=== PATIENT | female | born 1945 | race Caucasian/White ===

== ENCOUNTER → 2016-10-23 | Outpatient (CLI) | payer OTHER ==
[~2016-10-23] MED LIST: MINO100C22 PO; NAPR1TAB9 PO; OMEP20TA PO; TNR50 PO; TRIATAB3 PO; ULT50X PO
[2016-10-23 16:16] LABS: ALT/SGPT 19 U/L (12-78); AST/SGOT 16 U/L (15-37); BLOOD UREA NITROGEN 15 mg/dl (7-18); BUN/CREATININE RATIO 28.8 (10-20); CALCIUM 9.7 mg/dl (8.5-10.1); CARBON DIOXIDE 26 mmol/L (21-32); CHLORIDE 104 mmol/L (98-107); CHOLESTEROL 172 mg/dl (0-200); CREATININE 0.51 mg/dl (0.60-1.20); GLUCOSE 101 mg/dl (70-99); POTASSIUM 4.1 mmol/L (3.5-5.1); SODIUM 138 mmol/L (136-145); TRIGLYCERIDES 125 mg/dl (0-150); VERY LOW DENSITY LIPOPROT CALC 25 mg/dl
[2016-10-23 16:27] LABS: ALB/GLOB RATIO 1.1 (0.9-2); ALKALINE PHOSPHATASE 91 U/L (45-117); HDL CHOLESTEROL 58 mg/dl
[2016-10-23 17:55] LABS: HEMATOCRIT 37.2 % (37-47); MEAN CORPUSCULAR HEMOGLOBIN 29.2 pg (25-34); MEAN CORPUSCULAR HGB CONC 32.8 g/dl (32-36); MEAN PLATELET VOLUME 10.3 fL (7.4-10.4); PLATELET COUNT 245 K/uL (130-400); RED BLOOD COUNT 4.18 M/uL (4.2-5.4); WHITE BLOOD COUNT 6.01 K/uL (4.8-10.8)
[2016-10-23 17:57] LABS: BASO % 0.8 %; BASO ABS # 0.05 K/uL (0-0.2); COMPLETE YES; EOS % 2.2 %; IG% 0.2 %; LYMPH % 16.5 %; LYMPH ABS # 0.99 K/uL (1.2-3.4); MONO % 7.3 %
== END | disposition home or self-care (01) ==
LOC: C.LABSPEC 14:49
PROVIDERS: ATTEND Internal Medicine
DX: I10 Essential (primary) hypertension (principal); E78.5 Hyperlipidemia, unspecified; R60.9 Edema, unspecified

== ENCOUNTER → 2017-03-06 | Outpatient (CLI) | payer OTHER ==
--- NOTE | 2017-03-08 08:12 | MAMMOGRAPHY REPORT ---
BILATERAL DIGITAL SCREENING MAMMOGRAM WITH CAD: 03/06/2017 CLINICAL HISTORY: Routine screening. Patient has no complaints. TECHNIQUE: Bilateral CC and MLO views were obtained. Current study was also evaluated with a Compute r Aided Detection (CAD) system. COMPARISON: Comparison is made to exams dated: 02/24/2015 mammogram, 11/17/2013 mammogram, 10/20/2012 ma mmogram, 05/11/2011 mammogram - [facility], 02/06/2008, and 01/10/2007. BREAST COMPOSITION: There are scattered areas of fibroglandular density in both breasts. FINDINGS: The MLO views, particularly the right MLO view, are suboptimal due to inability of the rizwan ent to adequately position for the exam given frozen shoulders. Within this limitation, there are sc attered benign rim calcifications and stable groupings of microcalcifications scattered in both breas ts. Stable asymmetry in the upper outer quadrant of the left breast. Evidence of prior bilateral br east surgery. No new suspicious mass, architectural distortion or cluster of microcalcifications is seen. IMPRESSION: ACR BI-RADS CATEGORY 1: NEGATIVE There is no mammographic evidence of malignancy, within the limitations of the exam. A 1 year screeni ng mammogram is recommended. The patient will receive written notification of the results. Approximately 10% of breast cancers are not detected with mammography. A negative mammographic report should not delay biopsy if a clinically suggestive mass is present. Marcie Cruz M.D. ay/:03/06/2017 12:30:00 [employer]: Cathy ANDUJAR(Adelaide)(Ashish), [facility] letter sent: Normal 1/2 BI-RADS Code: ACR BI-RADS Category 1: Negative
== END | disposition home or self-care (01) ==
LOC: C.MAMM 09:34
PROVIDERS: ATTEND Obstetrics & Gynecology
DX: Z12.31 Encounter for screening mammogram for malignant neoplasm of breast (principal)

== ENCOUNTER 2019-08-31 13:00 | Inpatient (IN) ==
[2019-08-31] MEDS ORDERED: OXYCODONE HCL IR 5 MG TAB (IMMEDIATE RELEASE) PO STA (13:19)
--- NOTE | 2019-08-31 13:20 | Emergency Department Note ---
Impression & Plan Bilateral femoral fractures, Hypertension, Paraplegia, unspecified ED Provider Note NAME: JANN COSME AGE: 74 SEX: F : 1945 ARRIVES VIA: Ambulance INFORMANT: Patient ED PROVIDER(S): Td Moore DO CHIEF COMPLAINT: Bilateral knee pain HPI: Patient is a 74-year-old female who presents the ER as she was coming on a [employer]. She fell out of her wheelchair and fell forward onto her knees. She did not hit her head or neck. She denies any loss consciousness. She complains of bilateral knee pain. She notes that she normally does not bear any weight with her legs. She notes the pain is currently 6 out of 10. She has no pain in the lower leg or upper femur but notes that it is all around both of her knees. Denies any chest pain shortness of breath nausea vomiting or diarrhea. 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 She notes that she does have sensation in her belly and lower extremities. ROS: See above HPI for pertinent positives & negatives. A total of 10 systems reviewed and were otherwise negative. PAST MEDICAL HISTORY:See Below PAST SURGICAL HISTORY:See Below FAMILY HISTORY:See Below SOCIAL HISTORY:See Below HOME MEDICATIONS:See Below ALLERGIES:See Below VITALS:See Below PHYSICAL EXAMINATION: GENERAL: Sitting up in bed, alert, well appearing, well nourished, no distress, non-toxic EYE EXAM: normal conjunctiva. OROPHARYNX: no exudate, no erythema, lips, buccal mucosa, and tongue normal and mucous membranes are moist NECK: supple, no nuchal rigidity, no adenopathy, non-tender CHEST: Stable to compression anteriorly and posteriorly LUNGS: Clear to auscultation. Normal chest wall mechanics HEART: no murmurs, S1 normal and S2 normal ABDOMEN: abdomen soft, non-tender, normo-active bowel sounds, no masses, no rebound or guarding. BACK: Back is symmetrical on inspection and there is no deformity, no midline tenderness, no CVA tenderness. PELVIS: Stable to compression anteriorly and posteriorly SKIN: no rashes and no bruising UPPER EXTREMITIES: Moderate pain on bilateral knees upon palpation and with minimal flexion extension. No pain within the mid to distal tib-fib or ankle. No pain on proximal to mid femurs bilaterally. LOWER EXTREMITIES: No pitting edema. NEURO EXAM: Normal sensorium, cranial nerves II-XII grossly intact, normal speech, no gross weakness of arms MEDICAL DECISION MAKING: Patient is a 74-year-old female who fell out of her scooter as she uses this because she is a paraplegic. This occurred at [facility]. She fell onto her bilateral knees. X-rays were obtained and showed bilateral distal femur fractures. Skin was intact. Patient was initially given oral OxyIR but after the bilateral fractures were seen blood work was obtained. With the IV she was given IV morphine x2. Labs show a mild leukocytosis of 10,000. No significant anemia. BMP with LFTs bilirubin lipase was unremarkable. Patient was given pain medications and discussed with orthopedics as well as the hospitalist for admission for bilateral distal femur fractures. No other complaints. Triage Nursing notes reviewed. Prior medical records reviewed Vital Signs: reviewed and remarkable for hypertension Differential diagnosis: Differential diagnoses include major intracranial, cervical, spinal, thoracic, abdominal, pelvic and neurologic injury. Fracture, contusion, sprain, strain, laceration, abrasions included as well. ER treatment provided: See below Diagnostics interpreted by me: ECG: none Cardiac Monitoring: An order was placed for continuous cardiac monitoring. The monitor shows a rate of 75 with sinus rhythm. Laboratory studies: As stated above and show below. Imaging studies: X-rays of the bilateral of the bilateral knees show bilateral femur fractures Consultation(s): Discussed with Dr. Michelle for admission as well as Dr. Filiberto Hanna from [facility] orthopedics. ED COURSE: Procedures: None Critical Care: None Past Med/Surg History Medical History (Updated 08/31/19 @ 17:18 by Td Moore DO) Carpal tunnel syndrome Surgical History (Updated 08/31/19 @ 16:18 by Perfecto Larios MD) H/O bilateral breast reduction surgery Hx of cholecystectomy Family History (Updated 08/31/19 @ 16:19 by Perfecto Larios MD) Mother Factor V Leiden Social History Preferred Language: Gabonese Communication Ability: Effective [employer] Required: No Beliefs That Will Affect Care: None Current Living Situation: Alone Other Information That Helps Us Care for You: No Feels Safe at Home: Yes Safety Concerns: Feels Safe At This Time Smoking Status: Never smoker Do You Dip or Chew Tobacco: No ; Second Hand Exposure: No ; Tobacco Cessation Education Requested by Patient: No Hx Alcohol Use: Yes Hx Substance Use: No Allergies Allergies Allergy/AdvReac Type Severity Reaction Status Date / Time latex Allergy Mild Rash Verified 08/31/19 16:07 No Known Drug Allergies Allergy Unknown NKDA Verified 03/15/15 11:05 Home Meds Home Medications Medication Instructions Recorded Confirmed atenolol 50 mg PO DAILY 08/31/19 08/31/19 minocycline 100 mg PO DAILY 08/31/19 08/31/19 tramadol 50 mg PO DAILY 08/31/19 08/31/19 Results & Data (ED) Vital Signs Vital Signs - 24 hr 08/31/19 13:08 08/31/19 13:12 08/31/19 13:19 Temperature 37.2 C Temperature Source Oral Pulse Rate 80 80 76 Pulse Rate [Apical] 80 Pulse Rate from SpO2 Sensor Respiratory Rate 24 20 22 Respiratory Effort / Characteristics Non-Labored Spontaneous Respiratory Depth Normal Respiratory Pattern Regular Blood Pressure 199/98 H 199/98 H Blood Pressure [Right Radial Artery] 199/98 H Blood Pressure Mean 121 131 Blood Pressure Mean [Right Radial Artery] 131 Pulse Oximetry 98 Oxygen Delivery Method Room Air Sepsis Recent Fever Within 48 Hours No Sepsis New/Unexplained Change in Mental Status No Sepsis Action Taken by Nursing No Action Required 08/31/19 13:30 08/31/19 13:31 08/31/19 14:00 Temperature Temperature Source Pulse Rate 79 71 75 Pulse Rate [Apical] Pulse Rate from SpO2 Sensor 80 72 Respiratory Rate 19 18 16 Respiratory Effort / Characteristics Respiratory Depth Respiratory Pattern Blood Pressure 198/130 H Blood Pressure [Right Radial Artery] Blood Pressure Mean 157 Blood Pressure Mean [Right Radial Artery] Pulse Oximetry 100 99 Oxygen Delivery Method Sepsis Recent Fever Within 48 Hours Sepsis New/Unexplained Change in Mental Status Sepsis Action Taken by Nursing 08/31/19 14:01 08/31/19 14:30 08/31/19 15:00 Temperature Temperature Source Pulse Rate 82 74 78 Pulse Rate [Apical] Pulse Rate from SpO2 Sensor 74 74 Respiratory Rate 16 26 H 25 H Respiratory Effort / Characteristics Respiratory Depth Respiratory Pattern Blood Pressure 176/78 H Blood Pressure [Right Radial Artery] Blood Pressure Mean 117 Blood Pressure Mean [Right Radial Artery] Pulse Oximetry 99 90 Oxygen Delivery Method Sepsis Recent Fever Within 48 Hours Sepsis New/Unexplained Change in Mental Status Sepsis Action Taken by Nursing 08/31/19 15:02 08/31/19 15:13 08/31/19 15:30 Temperature Temperature Source Pulse Rate 80 76 89 Pulse Rate [Apical] 77 Pulse Rate from SpO2 Sensor 89 Respiratory Rate 20 22 29 H Respiratory Effort / Characteristics Non-Labored Spontaneous Respiratory Depth Normal Respiratory Pattern Regular Blood Pressure 172/80 H Blood Pressure [Right Radial Artery] 172/80 H Blood Pressure Mean 106 Blood Pressure Mean [Right Radial Artery] 110 Pulse Oximetry 99 89 L Oxygen Delivery Method Room Air Sepsis Recent Fever Within 48 Hours Sepsis New/Unexplained Change in Mental Status Sepsis Action Taken by Nursing 08/31/19 16:00 08/31/19 16:02 08/31/19 16:30 Temperature Temperature Source Pulse Rate 80 75 79 Pulse Rate [Apical] Pulse Rate from SpO2 Sensor 80 78 84 Respiratory Rate 28 H 19 21 Respiratory Effort / Characteristics Respiratory Depth Respiratory Pattern Blood Pressure 168/57 H 148/78 H Blood Pressure [Right Radial Artery] Blood Pressure Mean 105 98 Blood Pressure Mean [Right Radial Artery] Pulse Oximetry 75 L 97 90 Oxygen Delivery Method Sepsis Recent Fever Within 48 Hours Sepsis New/Unexplained Change in Mental Status Sepsis Action Taken by Nursing 08/31/19 16:31 Temperature Temperature Source Pulse Rate 78 Pulse Rate [Apical] Pulse Rate from SpO2 Sensor 78 Respiratory Rate 21 Respiratory Effort / Characteristics Respiratory Depth Respiratory Pattern Blood Pressure Blood Pressure [Right Radial Artery] Blood Pressure Mean Blood Pressure Mean [Right Radial Artery] Pulse Oximetry 100 Oxygen Delivery Method Sepsis Recent Fever Within 48 Hours Sepsis New/Unexplained Change in Mental Status Sepsis Action Taken by Nursing Laboratory Data Result diagrams: 08/31/19 14:50 08/31/19 15:56 Lab Results 08/31/19 08/31/19 08/31/19 Range/Units 14:50 14:50 15:56 WBC 10.91 H (4.8-10.8) K/uL RBC 4.23 (4.2-5.4) M/uL Hgb 11.6 L (12.0-16.0) g/dL Hct 36.2 L (37-47) % MCV 85.6 (80-100) fL MCH 27.4 (25-34) pg MCHC 32.0 (32-36) g/dL RDW Std Deviation 41.3 (36.4-46.3) fL RDW Coeff of Niki 13.2 (11.5-14.5) % Plt Count 267 (130-400) K/uL MPV 9.9 (7.4-10.4) fL Immature Gran % (Auto) 0.3 % Neut % (Auto) 88.0 % Lymph % (Auto) 5.9 % [place] % (Auto) 5.0 % Eos % (Auto) 0.5 % Baso % (Auto) 0.3 % Immature Gran # (Auto) 0.03 H (0.00-0.02) K/uL Neut # (Auto) 9.60 H (1.4-6.5) K/uL Lymph # (Auto) 0.64 L (1.2-3.4) K/uL [place] # (Auto) 0.55 (0.11-0.59) K/uL Eos # (Auto) 0.06 (0-0.5) K/uL Baso # (Auto) 0.03 (0-0.2) K/uL Sodium 137 (136-145) mmol/L Potassium 4.3 (3.5-5.1) mmol/L Chloride 102 (98-107) mmol/L Carbon Dioxide 25 (21-32) mmol/L Anion Gap 10.0 (3-11) BUN 16 (7-18) mg/dl Creatinine 0.65 (0.6-1.2) mg/dl Est Cr Clr Drug Dosing 73.5 ml/min Est GFR ( Amer) 102.8 Est GFR (Non-Af Amer) 88.7 BUN/Creatinine Ratio 25.1 H (10-20) Glucose 116 H (70-99) mg/dl Calcium 9.5 (8.5-10.1) mg/dl Total Bilirubin 0.5 (0.2-1) mg/dl AST 21 (15-37) U/L ALT 18 (12-78) U/L Alkaline Phosphatase 131 H (45-117) U/L Total Protein 8.2 (6.4-8.2) gm/dl Albumin 3.9 (3.4-5.0) gm/dl Globulin 4.3 H (2.5-4.0) gm/dl Albumin/Globulin Ratio 0.9 (0.9-2) Lipase 82 (73-393) U/L Administered Medications Discontinued Medications Morphine Sulfate (Morphine Sulfate) 4 mg IV NOW STA Stop: 08/31/19 14:29 Last Admin: 08/31/19 15:15 Dose: 4 mg Documented by: [id number] Morphine Sulfate (Morphine Sulfate) 4 mg IV NOW STA Stop: 08/31/19 16:54 Last Admin: 08/31/19 16:58 Dose: 4 mg Documented by: [id number] Ondansetron HCl (Zofran) 4 mg IV NOW STA Stop: 08/31/19 14:29 Last Admin: 08/31/19 15:14 Dose: 4 mg Documented by: [id number] Oxycodone HCl (Roxicodone Immediate Rel) 5 mg PO NOW STA Stop: 08/31/19 13:20 Last Admin: 08/31/19 13:29 Dose: 5 mg Documented by: [id number] Discharge Plan Visit Data Chief Complaint: Fall ED Provider: Td Moore Discharge Problem: Bilateral femoral fractures, Hypertension, Paraplegia, unspecified Forms Stand Alone Forms: [facility] Prescriptions Prescriptions: No Action minocycline 100 mg capsule 100 mg PO DAILY RF: 0 tramadol 50 mg tablet 50 mg PO DAILY RF: 0 atenolol 50 mg tablet 50 mg PO DAILY RF: 0 Discharge Problem: Bilateral femoral fractures Qualifiers: Encounter type: initial encounter Fracture type: closed Qualified Code(s): S72.91XA - Unspecified fracture of right femur, initial encounter for closed fra cture Hypertension Qualifiers: Hypertension type: unspecified Qualified Code(s): I10 - Essential (primary) hypertension
--- NOTE | 2019-08-31 13:45 | XRay Report ---
XR knee RT 1 or 2V routine CLINICAL HISTORY: Bilateral knee pain. COMPARISON: None FINDINGS: Note is made of an acute impacted mildly displaced fracture through the distal metadiaphys is and metaphysis of the right femur. Fracture may extend to the intercondylar portion of the femur. No proximal right tibial or fibular fracture is noted. Right knee joint effusion is noted. There is s oft tissue swelling of the right knee. IMPRESSION: 1. Acute impacted mildly displaced fracture of the distal metadiaphysis and metaphysis of the right f emur which may extend to the intercondylar portion of the femur. 2. Associated right knee joint effusion. 3. Right knee soft tissue swelling. ACT 112: Negative or not required by law. Electronically signed by: Bello Pace M.D. 08/31/2019 1:44 PM
--- NOTE | 2019-08-31 13:46 | XRay Report ---
XR knee LT 1 or 2V routine CLINICAL HISTORY: Left knee pain. COMPARISON STUDY: None. FINDINGS: The bones are osteopenic. There is diffuse soft tissue swelling throughout the knee. There is no associated moderate knee effusion. Impacted fracture at the distal metaphysis of the right femu r which demonstrates up to 8 mm of posterior and lateral displacement. The fracture does not clearly extend to the articular surface. IMPRESSION: Displaced and impacted fracture at the distal metaphysis of the left femur. ACT 112: Negative or not required by law. Electronically signed by: Leonardo Jacobs M.D. 08/31/2019 1:45 PM
[2019-08-31] MEDS ORDERED: ONDANSETRON INJ 2 MG/ML 2 ML VIAL IV STA (14:28)
[2019-08-31] MEDS ORDERED: MoRPHine SULFATE 4 MG/ML 1 ML CARP\\VIAL IV STA ×2 (14:28→16:53)
--- NOTE | 2019-08-31 15:05 | History & Physical Report ---
Date of Service August 31, 2019 Assessment & Plan (1) Bilateral femoral fractures: Mechanical fall resulting in bilateral distal femoral fractures. Orthopedic consultation is considering conservative management. Patient will undoubtedly need some supportive environment will ability return home while she is in the convalescent stage of these fractures (2) Hypertension: Typically only takes atenolol this will be maintained (3) Acne rosacea: Typically takes minocycline every other day this will be maintained however if her lower extremity area looks to be worsening with erythema and signs of clinical infection we may switch to more traditional dosing for cellulitis wound care consultation will be undertaken (4) Paraplegia, unspecified: Patient typically has significant limitations to her lower extremity strength due to previous polio she cannot stand or bear weight she typically transfers with her arms she does not use a slide board however with her fra ctures and increased pain she is in need help with movement (5) DVT prophylaxis: With her family history of factor V Leiden we will employ heparin therapy until surgery is definitely ruled out then will consider more long-term anticoagulation for the duration of her healing (6) GERD (gastroesophageal reflux disease): Omeprazole is continued History of Present Illness Primary Care Provider: Isauro Olivarez MD Ms. 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 She typically transfers her spouse with her upper extremities and typically uses a wheelchair to get around. Despite her limited lower leg use she is very active mobile and functional. Patient had an unintentional fall while pushing the cart in front of her wheelchair in the [facility] parking lot the car began to get away or create a gap between the wheelchair and itself. Patient hung onto the cart and was pulled from wheelchair landing on her knees sustaining distal comminuted femur fractures bilaterally. Patient in the ER is requiring parenteral pain control and orthopedic consultation be undertaken for the best approach. Given the patient's short stature short and thick legs he may be challenging to find a external application degree immobility that would be comfortable and sustainable for duration of 1 to 2 months. Prior to the accident she has been feeling well having no problems or chest pain pressure shortness of breath anginal symptoms orthopnea or bleeding disorders. Patient does have a family history of factor V Leiden and was evaluated in the past by hematology. Patient has previously been through surgical procedures including cholecystectomy breast reduction and previous distant orthopedic surgery without having venous thromboembolic issues. The patient also has recen tly had an abnormal growth removed from her distal right leg by her outpatient primary care provider the area since been seeping likely due to some chronic venous stasis changes and there is some skin irritation surrounding it. It is unclear at this time whether it cellulitis with presentation she typically takes every other day minocycline which may be partially treating an infection if there was 1 to be present. Additional concern that this could be topical irritation from maceration. Allergies Allergy/AdvReac Type Severity Reaction Status Date / Time latex Allergy Mild Rash Verified 08/31/19 16:07 No Known Drug Allergies Allergy Unknown NKDA Verified 03/15/15 11:05 Home Medications Home Medications Medication Instructions Recorded Confirmed Type atenolol 50 mg PO DAILY 08/31/19 08/31/19 History minocycline 100 mg PO DAILY 08/31/19 08/31/19 History tramadol 50 mg PO DAILY 08/31/19 08/31/19 History Past Med/Surg History Medical History Carpal tunnel syndrome Surgical History H/O bilateral breast reduction surgery Hx of cholecystectomy Family History Mother Factor V Leiden Social History Preferred Language: Pashto Communication Ability: Effective Medical Services Assistant Required: No Beliefs That Will Affect Care: None Current Living Situation: Alone Other Information That Helps Us Care for You: No Feels Safe at Home: Yes Safety Concerns: Feels Safe At This Time Smoking Status: Never smoker Do You Dip or Chew Tobacco: No ; Second Hand Exposure: No ; Tobacco Cessation Education Requested by Patient: No Hx Alcohol Use: Yes Hx Substance Use: No Review of Systems Review of Systems: Moderate distress and fatigue no headache, blurry or double vision no speech or swallowing issues no chest pain, pressure or palpitations no shortness of breath, cough or wheezes no abdominal pain, nausea or vomiting, diarrhea or constipation no dysuria, hematuria or frequency Bilateral knee pain, chronic bilateral lower extremity swelling no back pain, CVA tenderness or radicular pain Previous history of bruising of right lower extremity prior to this event, open area that seeping to her right lower extremity secondary to office procedure and surrounding erythema no focal signs of weakness or numbness or altered sensation no complaints or anxiety or depression Physical Exam Physical Exam: The patient appeared well nourished and a very short stature she was atrophic externally rotated lower extremity legs with chronic venous stasis changes Vital signs as documented. Head exam is normocephalic atraumatic no scleral icterus Neck is without JVD, thyromegaly, or carotid bruits. Lungs are clear to auscultation, no focal loss of breath sounds Cardiac exam, Rhythm is regular.. No murmurs, rubs or gallops. Abdominal exam reveals normal bowel sounds, soft non tender, no masses Extremities are chronically edematous, erythema to her distal right leg with a dime size open area that is leaking clear liquid bruising to her distal right lower extremity Neurologic exam is alert and oriented, bilateral lower extremity weakness Skin is with redness to the lower right leg with associated skin biopsy Psychologically is without concerns for anxiety or depression Results & Data Results & Data ([facility]) Vital Signs (Past 12 Hours) Vital Signs Temp Pulse Pulse Resp BP BP Pulse Ox 08/31/19 13:12 99.0 F 80 80 20 199/98 H 199/98 H 98 PG Care Time/CCT Total # of Minutes Spent Total Time Spent with Patient: Total time spent is greater than 50% in coordination of care (as documented) at patient's floor/unit and/or counseling patient: Coding Level of Care Code 84684 Initial Inpt Care Lvl 3 Diagnoses Bilateral femoral fractures S72.91XA; S72.92XA Hypertension I10 Acne rosacea L71.9 Paraplegia, unspecified G82.20 DVT prophylaxis Z29.9 GERD (gastroesophageal reflux disease) K21.9
[2019-08-31 15:13] LABS: Basophils # (auto) 0.03 K/uL (0-0.2); Basophils % (auto) 0.3 %; Eosinophils # (auto) 0.06 K/uL (0-0.5); Eosinophils % (auto) 0.5 %; Hematocrit (blood only) 36.2 % (37-47); Hemoglobin 11.6 g/dL (12.0-16.0); Immature Granulocytes # (auto) 0.03 K/uL (0.00-0.02); Immature Granulocytes % (auto) 0.3 %; Lymphocytes # (auto) 0.64 K/uL (1.2-3.4); Lymphocytes % (auto) 5.9 %; Mean Corpuscular Hemoglobin 27.4 pg (25-34); Mean Corpuscular Volume 85.6 fL (80-100); Mean Platelet Volume 9.9 fL (7.4-10.4); Monocytes # (auto) 0.55 K/uL (0.11-0.59); Platelet Count 267 K/uL (130-400); RDW Coefficient of Variation 13.2 % (11.5-14.5); RDW Standard Deviation 41.3 fL (36.4-46.3); Red Blood Count 4.23 M/uL (4.2-5.4); White Blood Count 10.91 K/uL (4.8-10.8)
[2019-08-31 15:45] LABS: Albumin Globulin Ratio 0.9 (0.9-2); Albumin Level 3.9 gm/dl (3.4-5.0); BUN Creatinine Ratio 25.1 (10-20); Bilirubin,Total 0.5 mg/dl (0.2-1); Calcium 9.5 mg/dl (8.5-10.1); Creatinine Clr Calc Pharmacy 73.5 ml/min; Est GFR (African American) 102.8; Est GFR (Non-African American) 88.7; Globulin 4.3 gm/dl (2.5-4.0); Total Protein 8.2 gm/dl (6.4-8.2)
--- NOTE | 2019-08-31 16:10 | Orthopedic Consultation ---
Date of Consultation August 31, 2019 Assessment & Plan (1) Paraplegia, unspecified: After discussing with Dr. Hanna, Yani is being admitted for pain control. We will place her in bilateral knee immobilizers to help with her pain. Present on Admission?: Yes (2) Bilateral femoral fractures: Mrs. Dodson is a pleasant and highly functioning female who has a history of polio leaving her nonambulatory for the past 9 years. 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 Unfortunately the past 9 years of non-ambulation has left her extensively osteoporotic. Both of these distal femur fractures should be treated nonoperatively. Surgical management is limited by her significant osteoporosis. There is no indication for surgery. Patient was adamant about any surgical options help control pain, however I do not think this will predictably improve her pain profile. Internal fixation will predictably result in serious complications. These fractures will heal with pain control and conservative management. She can expect elevated pain for 2 to 4 weeks. Will be expected made significant assistance with activities of daily living and transfers. Apparently knee immobilization has not worked for her due to the her flexion posture and significant pain. More customized option would include a posterior Orthoplast splint in the position of comfort. We can try this option at the bedside. She will likely need additional pain management. when she is comfortable for transfers and we have a permanent anticoagulation plan, she can likely transition to a lower level of care. She will likely benefit from further admission until we sort out the details of her management and firm up a solid pain control plan. She still requires quite a bit of parenteral narcotics. Present on Admission?: Yes History of Present Illness Reason for Consultation: Bilateral distal femur fracture History of Present Illness This is a 74 year old very pleasant, white female who presented the the [facility] ED after she sustained a fall while at [employer] earlier today. She says that she was in her motorized wheel chair and had a shopping cart which began to get away from her, she says that she held onto the cart and got pulled out of her wheelchair but was still strapped into her wheel chair and her chair fell on top of her, landing on her knees. She is wheelchair bound and has no movement of her lower extremities due to polio. She denies any other aches or pains. Dr. Hanna was consulted for orthopedic evaluation. Allergies Allergy/AdvReac Type Severity Reaction Status Date / Time latex Allergy Mild Rash Verified 08/31/19 16:07 No Known Drug Allergies Allergy Unknown NKDA Verified 03/15/15 11:05 Home Medications Home Medications Medication Instructions Recorded Confirmed Type atenolol 50 mg PO DAILY 08/31/19 08/31/19 History minocycline 100 mg PO DAILY 08/31/19 08/31/19 History tramadol 50 mg PO DAILY 08/31/19 08/31/19 History Patient History Medical History (Updated 09/01/19 @ 15:35 by Filiberto Hanna) Carpal tunnel syndrome Polio Diagnosed in the 1950s. Ambulatory with bracing until 2010, when shoulder pain restricted her to the motorized wheelchair. Surgical History H/O bilateral breast reduction surgery Hx of cholecystectomy Family History Mother Factor V Leiden Social History Preferred Language: Kazakh Communication Ability: Effective Entry Level Accountant Required: No Beliefs That Will Affect Care: None marital status: Single Current Living Situation: Alone Other Information That Helps Us Care for You: No Feels Safe at Home: Yes Safety Concerns: Feels Safe At This Time Smoking Status: Never smoker Do You Dip or Chew Tobacco: No ; Second Hand Exposure: No ; Tobacco Cessation Education Requested by Patient: No Hx Alcohol Use: Yes Hx Substance Use: No Review of Systems Review of Systems: All systems reviewed & are unremarkable except as noted in HPI & below Physical Exam Constitutional: WD/WN, vitals as above cooperative and + overweight; no acute distress ENMT: external ear and nose normal, oropharynx normal Ears: no hearing impairment Neck: normal visual inspection and trachea midline Respiratory: normal respiratory effort; no respiratory distress, no labored breathing and does not use accessory muscles Cardiovascular: Extremities: normal capillary refill and + edema Musculoskeletal: Head/Neck/Chest: normocephalic and head atraumatic Extremities: + limited ROM of extremities, + joint enlargement and + muscle atrophy Knee: + effusion RLE: Right distal femur is tender to palpation. Left distal femur is largely non-tender, but has significant pain with any manipulation of the leg. The pain is located at the distal femur. She has no evidence of ecchymosis nor skin compromise about the knee.. She has no movement of her bilateral lower extremities with the exception of slight movement of the toes. LLE: Same on exam. She is resting in approximately 35 degrees of flexion. There is no evidence of ecchymosis or other skin compromise about the knee. She can wiggle her toes. She has diffuse light touch sensation that is intact in all distributions Skin: She has a wound over her anterior right lower leg that is covered with a dry dressing. Patient reports that this was present prior to her injury. Also some partial-thickness heel decubiti ulcers that are well dressed by wound care Neurologic: Sensation to touch is grossly intact bilateral lower extremities. She has no motor function of her bilateral lower extremities. Non-ambulatory. Psychiatric: Orientation: alert and oriented x 3 Eye Contact: good eye contact Insight: good insight Results & Data ([facility]) Vital Signs (Past 12 Hours) Vital Signs Temp Pulse Pulse Resp BP BP Pulse Ox 08/31/19 15:13 76 77 22 172/80 H 99 08/31/19 13:12 37.2 C 80 80 20 199/98 H 199/98 H 98 Radiographs of the bilateral knees demonstrates impacted and comminuted fractures to the metaphyseal portion of the distal femurs bilaterally. There does not appear to be any intra-articular split. There is obvious osteoporosis, as expected. PG Care Time/CCT Total # of Minutes Spent Total Time Spent with Patient: Total time spent is greater than 50% in coordination of care (as documented) at patient's floor/unit and/or counseling patient: Coding Level of Care Code 99226 Office/Outpt Visit, New Diagnoses Paraplegia, unspecified G82.20 Bilateral femoral fractures S72.91XA; S72.92XA
[2019-08-31 16:23] LABS: Potassium 4.3 mmol/L (3.5-5.1)
[2019-08-31] MEDS: SODIUM CHLORIDE 0.9% 500 ML IV SCH (18:56)
[2019-08-31] MEDS: OXYCODONE HCL IR 5 MG TAB (IMMEDIATE RELEASE) PO PRN (19:47)
[2019-08-31] MEDS: ACETAMINOPHEN 500 MG TAB PO SCH (21:53)
[2019-08-31] MEDS: MELATONIN 3 MG TAB PO SCH (21:54)
[2019-08-31] MEDS: HEPARIN SOD 5,000 UNIT/0.5 ML VIAL SQ SCH (21:54)
[2019-09-01] MEDS: OXYCODONE HCL IR 5 MG TAB (IMMEDIATE RELEASE) PO PRN ×4 (01:59→20:29)
[2019-09-01] MEDS: SODIUM CHLORIDE 0.9% 500 ML IV SCH ×4 (02:04→20:43)
[2019-09-01] MEDS: MoRPHine SULFATE 2 MG/ML CARP IV PRN (05:22)
[2019-09-01] MEDS: ONDANSETRON INJ 2 MG/ML 2 ML VIAL IV PRN ×2 (05:22→12:32)
[2019-09-01 07:13] LABS: Hematocrit (blood only) 27.7 % (37-47); Hemoglobin 8.8 g/dL (12.0-16.0); Mean Corpuscular Hemoglobin 27.1 pg (25-34); Mean Corpuscular Hgb Conc 31.8 g/dL (32-36); Mean Corpuscular Volume 85.2 fL (80-100); Mean Platelet Volume 9.8 fL (7.4-10.4); Platelet Count 183 K/uL (130-400); RDW Coefficient of Variation 13.2 % (11.5-14.5); RDW Standard Deviation 40.7 fL (36.4-46.3); Red Blood Count 3.25 M/uL (4.2-5.4); White Blood Count 4.82 K/uL (4.8-10.8)
[2019-09-01 07:16] LABS: BUN Creatinine Ratio 29.2 (10-20); Calcium 8.5 mg/dl (8.5-10.1); Creatinine Clr Calc Pharmacy 97.5 ml/min; Est GFR (African American) 112.8; Est GFR (Non-African American) 97.3; Potassium 3.7 mmol/L (3.5-5.1)
--- NOTE | 2019-09-01 07:54 | Hospitalist Progress Note ---
Date of Service September 01, 2019 Assessment & Plan (1) Bilateral femoral fractures: Mechanical fall resulting in bilateral distal femoral fractures. Orthopedic consultation is considering conservative management. Patient will undoubtedly need some supportive environment will ability return home while she is in the convalescent stage of these fractures possible Osteoporotic fractures to bilateral distal femurs pain control is suboptimal, will escalate oxycodone called ortho and left message (2) Hypertension: Typically only takes atenolol this will be maintained (3) Acne rosacea: Typically takes minocycline every other day this will be maintained however if her lower extremity area looks to be worsening with erythema and signs of clinical infection we may switch to more traditional dosing for andrea lulitis wound care consultation will be undertaken (4) Paraplegia, unspecified: Patient typically has significant limitations to her lower extremity strength due to previous polio she cannot stand or bear weight she typically transfers with her arms she does not use a slide board however with her fractures and increased pain she is in need help with movement (5) DVT prophylaxis: With her family history of factor V Leiden we will employ heparin therapy until surgery is definitely ruled out then will consider more long-term anticoagulation for the duration of her healing (6) GERD (gastroesophageal reflux disease): Omeprazole is continued (7) Acute blood loss anemia: pt has had significant decrease in hgb, will recheck to reconfirm could be secondary to long bone fractures Admission and Anticipated Discharge Date Admission Date: August 31, 2019 Subjective this pt has had suboptimal pain control, she is disappointed that she will have significant limitation in her recovery period Review of Systems Review of Systems: moderate distress which limits her movement no speech or swallowing issues no chest pain, pressure or palpitations no shortness of breath, cough or wheezes no abdominal pain, nausea or vomiting, diarrhea or constipation no dysuria, hematuria or frequency bilateral distal thigh pain no back pain, CVA tenderness or radicular pain no bruising, bleeding or rashes no focal signs of weakness or numbness or altered sensation no complaints or anxiety or depression Results & Data Results & Data ([facility]) Vital Signs (Past 12 Hours) Vital Signs Temp Pulse Resp BP Pulse Ox 09/01/19 07:24 97.7 F 72 16 119/67 99 08/31/19 23:06 98.2 F 81 16 115/70 98 PG Care Time/CCT Total # of Minutes Spent Total Time Spent with Patient: Total time spent is greater than 50% in coordination of care (as documented) at patient's floor/unit and/or counseling patient: Coding Level of Care Code 01891 Subseq Hosp Care Lvl 3 Diagnoses Bilateral femoral fractures S72.91XA; S72.92XA Encounter type: initial encounter Fracture type: closed Hypertension I10 Hypertension type: unspecified Acne rosacea L71.9 Paraplegia, unspecified G82.20 DVT prophylaxis Z29.9 GERD (gastroesophageal reflux disease) K21.9 Acute blood loss anemia D62 (1) Bilateral femoral fractures Encounter type: initial encounter Fracture type: closed Qualified Code(s): S72.91XA - Unspecified fracture of right femur, initial encounter for closed fracture; S72.92XA - Unspecified fracture of left femur, initial encounter for closed fracture (2) Hypertension Hypertension type: unspecified Qualified Code(s): I10 - Essential (primary) hypertension
[2019-09-01] MEDS: ATENOLOL 50 MG TABLET PO SCH (08:26)
[2019-09-01] MEDS: HEPARIN SOD 5,000 UNIT/0.5 ML VIAL SQ SCH ×2 (08:26→22:14)
[2019-09-01] MEDS: TRAMADOL HCL 50 MG TABLET PO SCH (08:27)
[2019-09-01] MEDS: ACETAMINOPHEN 500 MG TAB PO SCH ×3 (08:27→22:14)
[2019-09-01] MEDS ORDERED: PANTOprazole 40 MG TAB PO ONE (11:30)
[2019-09-01] MEDS: ALUMINUM/MAGNESIUM SUSP 30 ML UDC PO PRN ×2 (12:27→20:28)
[2019-09-01] MEDS: MoRPHine SULFATE 4 MG/ML 1 ML CARP\\VIAL IV PRN ×3 (12:27→22:29)
[2019-09-01] MEDS: OMEPRAZOLE 20 MG CAPCR PO SCH (17:25)
[2019-09-01] MEDS: DOCUSATE SODIUM 100 MG CAP PO SCH (22:14)
[2019-09-01] MEDS: MELATONIN 3 MG TAB PO SCH (22:14)
[2019-09-02] MEDS: SODIUM CHLORIDE 0.9% 500 ML IV SCH ×4 (03:12→21:12)
[2019-09-02 05:48] LABS: Hematocrit (blood only) 26.1 % (37-47); Hemoglobin 8.3 g/dL (12.0-16.0); Mean Corpuscular Hemoglobin 27.2 pg (25-34); Mean Corpuscular Hgb Conc 31.8 g/dL (32-36); Mean Corpuscular Volume 85.6 fL (80-100); Mean Platelet Volume 9.2 fL (7.4-10.4); Platelet Count 161 K/uL (130-400); RDW Coefficient of Variation 13.4 % (11.5-14.5); Red Blood Count 3.05 M/uL (4.2-5.4); White Blood Count 5.21 K/uL (4.8-10.8)
[2019-09-02 06:20] LABS: BUN Creatinine Ratio 24.2 (10-20); Calcium 8.4 mg/dl (8.5-10.1); Creatinine Clr Calc Pharmacy 90.2 ml/min; Est GFR (African American) 109.9; Est GFR (Non-African American) 94.9; Potassium 3.6 mmol/L (3.5-5.1)
[2019-09-02] MEDS: MoRPHine SULFATE 4 MG/ML 1 ML CARP\\VIAL IV PRN ×2 (08:01→17:27)
--- NOTE | 2019-09-02 08:22 | Orthopedic Progress Note ---
Date of Service September 02, 2019 Assessment & Plan (1) Bilateral femoral fractures: Discussed treatment options with Yani once again - no good option for internal fixation. Recommended splinting in position of comfort. She was agreeable, but did request better pain control. I recommend procedural sedation for closed reduction and splinting today. I reviewed that splints will stabilize the fractures for transfers and pain control. Will try to make them removable with assistance for skin and wound checks. It would be best to leave them in place as much as possible for at least 2 weeks. With callous formation, the fractures will become less symptomatic and be more amenable to transition to knee ROM braces. Would expect her to need assistance with ADLs, transfers, and hygiene while the femur fractures are symptomatic. She was understanding and agreeable to consent to manipulation of bilateral femur fractures and splinting under procedural sedation as soon as can be arranged. Subjective Patient reports continued pain. Considered options and agreeable for nonoperative treatment. Does request that she be given some sedation or pain management for any manipulation of legs for splinting/immobilization. Knee immobilizers could not be tolerated. Review of Systems Review of Systems: All systems reviewed & are unremarkable except as noted in HPI & below Physical Exam Physical Exam: Supine in bed w HOB elevated NAD, pleasant and conversant BLEs: resting with slight knee flexion Results & Data ([facility]) Vital Signs (Past 12 Hours) Vital Signs Temp Pulse Resp BP Pulse Ox 09/02/19 07:30 36.8 C 80 16 134/75 100 09/01/19 23:13 36.9 C 77 18 110/70 97 Bilateral distal femurs with impacted metaphyseal fractures. PG Care Time/CCT Total # of Minutes Spent Total Time Spent with Patient: Total time spent is greater than 50% in coordination of care (as documented) at patient's floor/unit and/or counseling patient: Coding Level of Care Code None Diagnoses Bilateral femoral fractures S72.91XA; S72.92XA Encounter type: initial encounter Fracture type: closed (1) Bilateral femoral fractures Encounter type: initial encounter Fracture type: closed Qualified Code(s): S72.91XA - Unspecified fracture of right femur, initial encounter for closed fracture; S72.92XA - Unspecified fracture of left femur, initial encounter for closed fracture
[2019-09-02] MEDS ORDERED: LIDOCAINE HCL 2% 2 ML VIAL/AMP(20MG/ML) INFIL ONE (08:58)
[2019-09-02] MEDS ORDERED: PROPOFOL IV EMULSION 10 MG/ML 20 ML VIAL IV ONE (08:58)
[2019-09-02] MEDS ORDERED: MIDAZOLAM HCL 1 MG/ML 2ML VIAL ONE (08:59)
[2019-09-02] MEDS ORDERED: fentaNYL citrate 100 MCG/2 ML VIAL ONE ×2 (09:00→10:08)
[2019-09-02] MEDS ORDERED: OMEPRAZOLE 20 MG CAPCR PO SCH (09:00)
[2019-09-02] MEDS ORDERED: PANTOprazole 40 MG TAB PO SCH (09:00)
[2019-09-02] MEDS ORDERED: BUPIVACAINE 0.5 % 5 MG/1 ML MPF 30ML VIAL ONE (09:18)
[2019-09-02] MEDS ORDERED: SODIUM CHLORIDE 0.9% INJ 10 ML VIAL ONE (09:18)
--- NOTE | 2019-09-02 09:20 | Anesthesiology Consultation ---
Date of Service September 02, 2019 Assessment & Plan (1) Acute blood loss anemia: (2) Hypertension: (3) Encounter for pre-operative examination: Chart Review Chart Review: Acceptable Risk for Surgery History Surgery Operation Date: 09/02/19 09:00 Proposed Procedures p Bilateral Closed Reduction and Splinting Distal Femur Fracture - Filiberto Hanna Height/Weight Height: 4 ft 11 in Weight: 84 kg Allergies Allergy/AdvReac Type Severity Reaction Status Date / Time latex Allergy Mild Rash Verified 08/31/19 16:07 No Known Drug Allergies Allergy Unknown NKDA Verified 03/15/15 11:05 Medications Home Medications Medication Instructions Recorded Confirmed Last Taken atenolol 50 mg PO DAILY 08/31/19 08/31/19 Unknown minocycline 100 mg PO DAILY 08/31/19 08/31/19 Unknown tramadol 50 mg PO DAILY 08/31/19 08/31/19 Unknown Active Medications Generic Name Dose Route Start Last Admin Trade Name Freq PRN Reason Stop Dose Admin Acetaminophen 1,000 mg 08/31/19 21:00 09/01/19 22:14 Tylenol PO 09/30/19 20:59 1,000 mg TID STEVEN Administration Al Hydrox/Mg Hydrox/Simethicone 15 ml 09/01/19 11:03 09/01/19 20:28 Maalox PO 10/01/19 11:02 15 ml Q6H PRN Administration Heartburn Atenolol 50 mg 09/01/19 09:00 09/01/19 08:26 Tenormin PO 10/01/19 08:59 50 mg DAILY STEVEN Administration Docusate Sodium 100 mg 09/01/19 21:00 09/01/19 22:14 Colace PO 10/01/19 20:59 100 mg BID STEVEN Administration Heparin Sodium (Porcine) 5,000 units 08/31/19 21:00 09/01/19 22:14 Heparin Sodium (Porcine) SQ 09/30/19 20:59 5,000 units Q12 STEVEN Administration Sodium Chloride 500 mls @ 80 mls/hr 08/31/19 18:09 09/02/19 03:12 Nss IV 09/30/19 18:08 80 mls/hr .Q6H15M STEVEN Administration Melatonin 3 mg 08/31/19 21:00 09/01/19 22:14 Melatonin PO 09/30/19 20:59 3 mg HS STEVEN Administration Morphine Sulfate 2 mg 08/31/19 18:09 09/01/19 05:22 Morphine Sulfate IV 09/14/19 18:08 2 mg Q4 PRN Administration Pain Morphine Sulfate 4 mg 08/31/19 18:09 09/02/19 08:01 Morphine Sulfate IV 09/14/19 18:08 4 mg Q4 PRN Administration Pain Omeprazole 20 mg 09/01/19 16:30 09/01/19 17:25 Prilosec PO 10/01/19 16:29 20 mg DAILY STEVEN Administration Ondansetron HCl 4 mg 08/31/19 18:09 09/01/19 12:32 Zofran IV 09/30/19 18:08 4 mg Q6H PRN Administration Nausea Oxycodone HCl 15 mg 09/01/19 17:00 09/01/19 20:29 Roxicodone Immediate Rel PO 09/15/19 16:59 15 mg Q6H PRN Administration Pain Tramadol HCl 50 mg 09/01/19 09:00 09/01/19 08:27 Ultram PO 10/01/19 08:59 50 mg DAILY STEVEN Administration NPO Date Last Intake of Fluids: 09/01/19 Time Last Intake of Fluids: 21:00 Date Last Intake of Solids: 09/01/19 Time Last Intake of Solids: 19:30 Past Medical History Medical History (Updated 09/02/19 @ 09:20 by Florencio Platt MD) Carpal tunnel syndrome Polio Diagnosed in the 1950s. Ambulatory with bracing until 2010, when shoulder pain restricted her to the motorized wheelchair. Past Family History Family History Mother Factor V Leiden Past Surgical History Surgical History H/O bilateral breast reduction surgery Hx of cholecystectomy Past Anesthesia History No Hx of Anesthesia Complications History of PONV No Hx of PONV and No Hx of Motion Sickness Social History Smoking Status: Never smoker Do You Dip or Chew Tobacco: No Hx Alcohol Use: Yes alcohol intake frequency: 0-2 drinks per day Alcohol Intake Frequency Comment: at night, one drink before bed Hx Substance Use: No substance use type: does not use Physical Exam Vital Signs Last Vital Signs Temp 37.6 C H 09/02/19 08:40 Pulse 88 09/02/19 08:40 Resp 20 09/02/19 08:40 BP 146/97 H 09/02/19 08:40 Pulse Ox 96 09/02/19 08:40 Testing Laboratory Results 09/02/19 05:39 09/02/19 05:39 09/01/19 14:00 Gram Stain - Final Leg,Right (1) Hypertension Hypertension type: unspecified Qualified Code(s): I10 - Essential (primary) hypertension
[2019-09-02] MEDS ORDERED: ONDANSETRON INJ 2 MG/ML 2 ML VIAL IV PRN (09:21)
[2019-09-02] MEDS ORDERED: ePHEDrine sulfate 50 MG/ML AMP IV PRN (09:21)
[2019-09-02] MEDS ORDERED: HYDROmorphone INJ 1 MG/ML SYRINGE IV PRN (09:21)
[2019-09-02] MEDS ORDERED: ATROPINE SULFATE 0.1 MG/ML 10ML SYR IV PRN (09:21)
--- NOTE | 2019-09-02 09:27 | Hospitalist Progress Note ---
Date of Service September 02, 2019 Assessment & Plan (1) Bilateral femoral fractures: Mechanical fall resulting in bilateral distal femoral fractures. Orthopedic consultation is considering conservative management. Patient will undoubtedly need some supportive environment will ability return home while she is in the convalescent stage of these fractures possible Osteoporotic fractures to bilateral distal femurs procedural sedation in the OR with splinting 09/02/19 look for need for inpatient rehab once recovered (2) Hypertension: remains on atenolol (3) Acne rosacea: Typically takes minocycline every other day this will be maintained wound care has eval and treated lower leg wound (4) Paraplegia, unspecified: Patient typically has significant limitations to her lower extremity strength due to previous polio she cannot stand or bear weight she typically transfers with her arms she does not use a slide board however with her fractures and increased pain she is in need help with movement (5) DVT prophylaxis: With her family history of factor V Leiden we will employ heparin therapy will consider prophylacitc xarelto for ease of care at rehab, with a watchful eye on her anemia (6) GERD (gastroesophageal reflux disease): Omeprazole is continued (7) Acute blood loss anemia: secondary to long bone fractures, nearing transfusion range Admission and Anticipated Discharge Date Admission Date: August 31, 2019 Subjective pt taken to the OR for procedural sedation and splinting under sedation, hopes f or better fracture stabilization and pain control will need placement for assistance in ADL for the near future Pt has no complaints Review of Systems Review of Systems: Mild distress and fatigue no headache, blurry or double vision no speech or swallowing issues no chest pain, pressure or palpitations no shortness of breath, cough or wheezes no abdominal pain, nausea or vomiting, diarrhea or constipation no dysuria, hematuria or frequency Significant bilateral distal thigh pain with bruising and swelling. No specific back pain or CVA tenderness or radicular pain Bruising on her legs are evident no focal signs of weakness or numbness or altered sensation no complaints or anxiety or depression Physical Exam Physical Exam: The patient appeared well nourished and there is a very short stature Vital signs as documented. Head exam is normocephalic atraumatic no scleral icterus Neck is without JVD, thyromegaly, or carotid bruits. Lungs are clear to auscultation, no focal loss of breath sounds Cardiac exam, Rhythm is regular.. No murmurs, rubs or gallops. Abdominal exam reveals normal bowel sounds, soft non tender, no masses Extremities there is some ecchymosis and swelling to her distal thighs bilaterally she is markedly tender to move peripheral pulses and capillary refill is intact Neurologic exam is alert and oriented, no focal loss of strength or sensation Skin is without bruises or rashes Psychologically is without concerns for anxiety or depression Results & Data Results & Data ([facility]) Vital Signs (Past 12 Hours) Vital Signs Temp Pulse Resp BP BP Pulse Ox 09/02/19 08:40 99.7 F H 88 20 146/97 H 96 09/02/19 07:30 98.2 F 80 16 134/75 100 09/01/19 23:13 98.4 F 77 18 110/70 97 PG Care Time/CCT Total # of Minutes Spent Total Time Spent with Patient: Total time spent is greater than 50% in coordination of care (as documented) at patient's floor/unit and/or counseling patient: Coding Level of Care Code 51357 Subseq Hosp Care Lvl 2 Diagnoses Bilateral femoral fractures S72.91XA; S72.92XA Encounter type: initial encounter Fracture type: closed Hypertension I10 Hypertension type: unspecified Acne rosacea L71.9 Paraplegia, unspecified G82.20 DVT prophylaxis Z29.9 GERD (gastroesophageal reflux disease) K21.9 Acute blood loss anemia D62 (1) Bilateral femoral fractures Encounter type: initial encounter Fracture type: closed Qualified Code(s): S72.91XA - Unspecified fracture of right femur, initial encounter for closed fracture; S72.92XA - Unspecified fracture of left femur, initial encounter for closed fracture (2) Hypertension Hypertension type: unspecified Qualified Code(s): I10 - Essential (primary) hypertension
--- NOTE | 2019-09-02 09:46 | Operative Report ---
PG Post Operative Report Pre & Post Diagnosis Operation Date: 09/02/19 09:00 Preoperative diagnosis: Bilateral distal femur fractures Postoperative diagnosis: Bilateral distal femur fractures I identified the patient and participated in the time-out.: Yes Procedure Operation Date: 09/02/19 09:00 Bilateral distal femur fractures manipulation and splinting under sedation. Surgeon Filiberto Hanna Lost And Found Clerk Irving Salinas PA-C Estimated Blood Loss 0 Findings Consistent with Post-Op Diagnosis The right and left legs were protected with stockinette and abundant cast padding before application of a long-leg posterior Ortho-Glass splint. Specimens None Anesthesia Type MAC Regional Complications none Disposition Accompanied Patient To Recovery: No Disposition: Recovery Room Indications 74-year-old female who unfortunately sustained impact injuries to both knees when she fell off her motorized wheelchair. She was admitted to the hospital for stabilization these fractures. We had attempted immobilization with [id number] knee immobilizers for nonoperative treatment. Patient was adamant about her ongoing pain and inability to tolerate manipulation of her legs. She was interested in surgical procedures, if possible. We had a long discussion regarding her osteoporosis and inability to reliably get internal fixation that would be beneficial for her. I discussed that risks of surgery may include hardware failure and cut outs which could result to complications at lead to amputation. I recommended close reduction and splinting for comfort. After our discussion she was agreeable to proceed with nonoperative care. She did request procedural sedation to keep her comfortable so he get appropriate splints in place. Discussed the risks and benefits of closed reduction and splinting under anesthesia and she was agreeable to proceed. Discussed the risks of splinting include skin breakdown, decubitus ulcer, need for revision of the splints, and ongoing risk of VTE. Description of Procedure On the day of surgery, the patient was greeted in the preoperative holding area. The informed consent was reviewed and confirmed by myself and the patient. The patient identified the surgical site and was marked by me. The patient was then turned over to anesthesia. Anesthesia performed bilateral regional anesthetic blockswith excellent effect. Patient was then taken to the operating place and she remained in the hospital bed. Sedation was initiated and the case was turned over to orthopedics. We began on the right leg, and address all skin issues. Dressings were changed on the bilateral anterior tibias. We then placed stockinettes followed by abundant cast padding. An Ortho-Glass splint was applied. The cast paddin was cut for a wound care window on the anterior tibia. The splint was set in a position of comfortable knee flexion in preparation for use of a wheelchair. The same procedure was then performed on the left leg. Patient tolerated theprocedure well, awoke from sedation the operating without complication, was transferred back to the recovery area in stable condition. Disposition: She will remain inpatient until we can figure out her level of assistance needed for activities of daily living and hygiene. I will discuss with the primary team ongoing needs for cast management and DVT prophylaxis. We expect that she could go to a correction facility for assistance with these bilateral splints. She can then come back to our clinic within 2 to 3 weeks for evaluation of the splints and potential changing over to knee range of motion braces or revision of the splints. Hopefully as she achieves some healing, we can change the splints without sedation. It should be noted that both splints can be unwrapped and the leg can be manipulated as tolerated to allow wound care. Splints are not holding a specific fracture reduction, rather they are providing stability for comfort. contact orthopedics with any questions. Bubba wrap can be unwrapped and the anterior padding over the tibias can be easily open to visualize the wounds without changing position of the leg. I attest to the content of the Intraoperative Record and any orders documented therein. Any exceptions are noted below.
--- NOTE | 2019-09-02 10:39 | Post Operative Brief Note ---
PG Immediate Post Op with CF Date of Surgery September 02, 2019 Pre & Post Diagnosis Operation Date: 09/02/19 09:00 Operation Date: 09/02/19 09:00 Preoperative diagnosis: Bilateral distal femur fractures Postoperative diagnosis: Bilateral distal femur fractures I identified the patient and participated in the time-out.: Yes Procedure Operation Date: 09/02/19 09:00 Operation Date: 09/02/19 09:00 Bilateral distal femur fractures manipulation and splinting under sedation. Surgeon Filiberto Hanna Finished Stock Inspector Irving Salinas PA-C Estimated Blood Loss 0 Findings Consistent with Post-Op Diagnosis Specimens Specimen Description: none Drains Sykes Catheter Anesthesia Type [facility] Regional
[2019-09-02] MEDS: NON-FORMULARY PATIENT'S OWN MED PO SCH (11:36)
[2019-09-02] MEDS: DOCUSATE SODIUM 100 MG CAP PO SCH (11:36)
[2019-09-02] MEDS: ACETAMINOPHEN 500 MG TAB PO SCH (11:37)
[2019-09-02] MEDS: TRAMADOL HCL 50 MG TABLET PO SCH (11:48)
[2019-09-02] MEDS: OMEPRAZOLE 20 MG CAPCR PO SCH (11:48)
[2019-09-02] MEDS: ATENOLOL 50 MG TABLET PO SCH (11:48)
[2019-09-02] MEDS: HEPARIN SOD 5,000 UNIT/0.5 ML VIAL SQ SCH ×2 (11:51→21:41)
--- NOTE | 2019-09-02 13:14 | Anesthesiology Progress Note ---
Date of Service September 02, 2019 Anesthesia Post Procedure Vital Signs Vital Signs: Temp Pulse Pulse Resp BP BP Pulse Ox 09/02/19 12:30 85 16 135/73 99 09/02/19 11:57 36.3 C L 91 H 16 145/75 H 93 09/02/19 11:26 36.9 C 99 H 18 122/87 98 09/02/19 11:10 36.6 C 95 H 20 127/89 98 09/02/19 11:00 99 H 22 155/99 H 98 09/02/19 10:50 97 H 14 153/89 H 99 09/02/19 10:42 36.2 C L 94 H 23 145/75 H 100 09/02/19 08:40 37.6 C H 88 20 146/97 H 96 09/02/19 07:30 36.8 C 80 16 134/75 100 09/01/19 23:13 36.9 C 77 18 110/70 97 09/01/19 14:58 36.9 C 78 16 112/66 100 Pain Intensity Bilateral Knee: Pain Intensity: 3 Transfer of Care Handoff Completed per policy Notes Mental Status: alert / awake / arousable Patient Amnestic to Procedure: Yes Nausea / Vomiting: adequately controlled Pain: adequately controlled Airway Patency, RR, SpO2: stable & adequate BP & HR: stable & adequate Hydration State: stable & adequate Anesthetic Complications: no major complications apparent
[2019-09-02] MEDS: OXYCODONE HCL IR 5 MG TAB (IMMEDIATE RELEASE) PO PRN ×2 (13:37→20:20)
[2019-09-02] MEDS ORDERED: Nursing to Pharmacy Communication ONE (20:15)
[2019-09-02] MEDS: SODIUM CHLORIDE 0.9% 1000ML 1,000 ML IV SCH (20:47)
[2019-09-03] MEDS: OMEPRAZOLE 20 MG CAPCR PO SCH (06:15)
[2019-09-03 06:55] LABS: Hematocrit (blood only) 27.3 % (37-47); Hemoglobin 8.6 g/dL (12.0-16.0); Mean Corpuscular Hemoglobin 27.2 pg (25-34); Mean Corpuscular Hgb Conc 31.5 g/dL (32-36); Mean Corpuscular Volume 86.4 fL (80-100); Mean Platelet Volume 9.5 fL (7.4-10.4); Platelet Count 190 K/uL (130-400); RDW Coefficient of Variation 13.5 % (11.5-14.5); RDW Standard Deviation 42.7 fL (36.4-46.3); Red Blood Count 3.16 M/uL (4.2-5.4); White Blood Count 5.64 K/uL (4.8-10.8)
[2019-09-03 07:19] LABS: BUN Creatinine Ratio 21.2 (10-20); Calcium 8.5 mg/dl (8.5-10.1); Creatinine Clr Calc Pharmacy 122.5 ml/min; Est GFR (African American) 121.6; Est GFR (Non-African American) 104.9; Potassium 3.7 mmol/L (3.5-5.1)
[2019-09-03] MEDS: OXYCODONE HCL IR 5 MG TAB (IMMEDIATE RELEASE) PO PRN ×3 (07:38→21:29)
--- NOTE | 2019-09-03 07:38 | Anesthesiology Progress Note ---
Date of Service September 03, 2019 Anesthesia Post Procedure Vital Signs Vital Signs: Temp Pulse Pulse Resp BP BP Pulse Ox 09/03/19 03:52 37.2 C 83 18 134/79 99 09/02/19 23:18 37.5 C 78 16 125/72 99 09/02/19 19:52 37.2 C 82 16 141/63 H 98 09/02/19 15:09 36.9 C 74 16 127/74 98 09/02/19 13:31 37.2 C 82 18 138/76 100 09/02/19 12:30 85 16 135/73 99 09/02/19 11:57 36.3 C L 91 H 16 145/75 H 93 09/02/19 11:26 36.9 C 99 H 18 122/87 98 09/02/19 11:10 36.6 C 95 H 20 127/89 98 09/02/19 11:00 99 H 22 155/99 H 98 09/02/19 10:50 97 H 14 153/89 H 99 09/02/19 10:42 36.2 C L 94 H 23 145/75 H 100 09/02/19 08:40 37.6 C H 88 20 146/97 H 96 Pain Intensity Bilateral Knee: Pain Intensity: 3 Transfer of Care Handoff Completed per policy Notes Mental Status: alert / awake / arousable Nausea / Vomiting: adequately controlled Pain: adequately controlled Airway Patency, RR, SpO2: stable & adequate BP & HR: stable & adequate Hydration State: stable & adequate Anesthetic Complications: no major complications apparent and Pt Satisfied with anesthetic care
[2019-09-03] MEDS: SODIUM CHLORIDE 0.9% 1000ML 1,000 ML IV SCH (09:13)
[2019-09-03] MEDS: MoRPHine SULFATE 4 MG/ML 1 ML CARP\\VIAL IV PRN ×2 (09:23→17:26)
[2019-09-03] MEDS: TRAMADOL HCL 50 MG TABLET PO SCH (09:23)
[2019-09-03] MEDS: NON-FORMULARY PATIENT'S OWN MED PO SCH (09:31)
[2019-09-03] MEDS: ATENOLOL 50 MG TABLET PO SCH (09:31)
[2019-09-03] MEDS: FLINTSTONES COMPLETE CHEWABLE TAB PO SCH (10:16)
[2019-09-03] MEDS: HEPARIN SOD 5,000 UNIT/0.5 ML VIAL SQ SCH (10:16)
--- NOTE | 2019-09-03 15:59 | Orthopedic Progress Note ---
Date of Service September 03, 2019 Assessment & Plan (1) Bilateral femoral fractures: Make an uncomplicated progress at 1 day after the bilateral lower extremity splinting for the distal femur fractures and in a nonambulatory patient. I ordered new x-rays today to evaluate both knees. She has had increased pain in the right knee. This is likely an expected finding. She can participate in transfers as tolerated. Expected be pain until the fracture callus is mature. This may be 2 to 4 weeks. She still requires parental pain management likely require further inpatient admission until pain is managed, and she can be safely transitioned to the appropriate next level of care. Do not expect any further orthopedic intervention needs. We can be contacted for any questions. I would like to see her in 2 weeks time at our outpatient clinic for repeat x- rays and evaluation the splints. She may be able to transfer into a removable brace or range of motion brace as pain improves. Subjective She reports that the left knee feels substantially better since the splinting. Unfortunately, the right knee still has pain including at rest. She attempted physical therapy but they could not do too many transfers because the right knee pain was prohibitive. Overall, she feels no undue pressure or sore spots from the splints. Review of Systems Review of Systems: All systems reviewed & are unremarkable except as noted in HPI & below Physical Exam Constitutional: + well hydrated; no acute distress Respiratory: normal respiratory effort; no respiratory distress Cardiovascular: Extremities: normal capillary refill Musculoskeletal: Bilateral lower extremities:Clean dry and intact. Heels are again well dressed with decubitus dressings. Overall no substantial changes. There is no areas of skin compromise in the splint. Results & Data ([facility]) Vital Signs (Past 12 Hours) Vital Signs Temp Pulse Resp BP Pulse Ox 09/03/19 15:18 37.0 C 75 16 142/76 H 99 09/03/19 12:51 36.8 C 73 16 149/75 H 100 09/03/19 09:34 79 156/75 H 09/03/19 07:46 36.8 C 78 18 154/71 H 98 PG Care Time/CCT Total # of Minutes Spent Total Time Spent with Patient: Total time spent is greater than 50% in coordination of care (as documented) at patient's floor/unit and/or counseling patient: Coding Level of Care Code None Diagnoses Bilateral femoral fractures S72.91XA; S72.92XA Encounter type: initial encounter Fracture type: closed (1) Bilateral femoral fractures Encounter type: initial encounter Fracture type: closed Qualified Code(s): S72.91XA - Unspecified fracture of right femur, initial encounter for closed fracture; S72.92XA - Unspecified fracture of left femur, initial encounter for closed fracture
[2019-09-03] MEDS: CIPROFLOXACIN 500 MG TAB PO SCH ×2 (16:37→22:07)
[2019-09-03] MEDS: RIVAROXABAN 10 MG TABLET PO SCH (16:37)
--- NOTE | 2019-09-03 17:38 | Hospitalist Progress Note ---
Date of Service September 03, 2019 Assessment & Plan (1) Bilateral femoral fractures: Mechanical fall resulting in bilateral distal femoral fractures. Orthopedic consultation is considering conservative management. Patient will undoubtedly need some supportive environment will ability return home while she is in the convalescent stage of these fractures possible Osteoporotic fractures to bilateral distal femurs procedural sedation in the OR with splinting 09/02/19 look for need for inpatient rehab patient is considering [facility] (2) Hypertension: remains on atenolol (3) Acne rosacea: Typically takes minocycline every other day this will be maintained wound care has eval and treated lower leg wound (4) Paraplegia, unspecified: Patient typically has significant limitations to her lower extremity strength due to previous polio she cannot stand or bear weight she typically transfers with her arms she does not use a slide board however with her f ractures and increased pain she is in need help with movement (5) DVT prophylaxis: With her family history of factor V Leiden we will employ heparin therapy will consider prophylacitc xarelto for ease of care at rehab, with a watchful eye on her anemia (6) GERD (gastroesophageal reflux disease): Omeprazole is continued (7) Acute blood loss anemia: secondary to long bone fractures, nearing transfusion range (8) Wound of lower extremity: Patient had wound seen by wound care this was cultured and grew Pseudomonas which is pansensitive. Subsequently she will begun on oral ciprofloxacin therapy it is improving however will complete a 7-day course. Admission and Anticipated Discharge Date Admission Date: August 31, 2019 Subjective Patient is doing fairly well post procedure she has some pain with her splinting she is participating in PT OT. She is agreeable to rehab. Review of Systems Review of Systems: Mild distress and fatigue no headache, blurry or double vision no speech or swallowing issues no chest pain, pressure or palpitations no shortness of breath, cough or wheezes no abdominal pain, nausea or vomiting, diarrhea or constipation no dysuria, hematuria or frequency Significant lower extremity pain bilateral with swelling distally no back pain, CVA tenderness or radicular pain no bruising, bleeding or rashes no focal signs of weakness or numbness does have prehospital lower extremity pa raplegia no complaints or anxiety or depression Physical Exam Physical Exam: The patient appeared uncomfortable Vital signs as documented. Lungs are clear to auscultation and appear unlabored Cardiac exam, Rhythm is regular.. No murmurs, rubs or gallops. Abdominal exam reveals normal bowel sounds, soft non tender, no masses Extremities are splints in place bilaterally patient has good distal sensation capillary refill Neurologic exam is alert and oriented Skin is with improved area of erythema to her distal right leg Psychologically is without concerns for anxiety or depression Results & Data Results & Data ([facility]) Vital Signs (Past 12 Hours) Vital Signs Temp Pulse Resp BP Pulse Ox 09/03/19 15:18 98.6 F 75 16 142/76 H 99 09/03/19 12:51 98.2 F 73 16 149/75 H 100 09/03/19 09:34 79 156/75 H 09/03/19 07:46 98.2 F 78 18 154/71 H 98 PG Care Time/CCT Total # of Minutes Spent Total Time Spent with Patient: Total time spent is greater than 50% in coordination of care (as documented) at patient's floor/unit and/or counseling patient: Coding Level of Care Code 99455 Subseq Hosp Care Lvl 2 Diagnoses Bilateral femoral fractures S72.91XA; S72.92XA Encounter type: initial encounter Fracture type: closed Hypertension I10 Hypertension type: unspecified Acne rosacea L71.9 Paraplegia, unspecified G82.20 DVT prophylaxis Z29.9 GERD (gastroesophageal reflux disease) K21.9 Acute blood loss anemia D62 Wound of lower extremity S81.809A (1) Bilateral femoral fractures Encounter type: initial encounter Fracture type: closed Qualified Code(s): S72.91XA - Unspecified fracture of right femur, initial encounter for closed fracture; S72.92XA - Unspecified fracture of left femur, initial encounter for closed fracture (2) Hypertension Hypertension type: unspecified Qualified Code(s): I10 - Essential (primary) h ypertension
--- NOTE | 2019-09-03 17:40 | XRay Report ---
LEFT KNEE 2 VIEWS CLINICAL HISTORY: Post splinting. FINDINGS: AP and crosstable lateral views of the left knee are compared to study dated 08/31/2019. The skeletal structures are osteopenic. The examination is performed through a splint, obscuring fine yana ny detail. Again seen is an impacted and comminuted fracture of the distal femoral metaphysis. There are anteriorly distracted fragments, and fracture may extend to the articular surface. Alignment has modestly improved status post external fixation. There is mild apex volar angulation. The proximal [place] and fibula are intact as imaged. Soft tissue edema is present around the knee. A joint effusion i s noted. IMPRESSION: Modest improvement in alignment status post external fixation of a distal femoral fractur e as above. Electronically signed by: Sahil Abdullahi M.D. 09/03/2019 5:39 PM
--- NOTE | 2019-09-03 17:44 | XRay Report ---
XR knee RT 1 or 2V routine HISTORY: 74 years-old Female post splinting acute fracture of the right knee COMPARISON: 2 views the right knee were obtained status post splinting TECHNIQUE: 2 views of the right knee FINDINGS: Demineralized appearance of the bones. There is an acute impacted and mildly displaced fracture invol ving the distal metadiaphyseal aspect of the right femur with possible fracture extension into the in tercondylar distribution. The degree of medial displacement of the distal fracture fragment measures 2.0 cm, previously 1.5. Extensive soft tissue swelling of the lower leg, most pronounced medially. At least mild tricompartmental osteoarthritis. Right knee joint effusion. IMPRESSION: Status post casting of the acute comminuted, impacted and mildly displaced distal femoral fracture with possible extension into the intercondylar distribution. The degree of displacement maru ears slightly greater than comparison which may be projectional. ACT 112: Negative or not required by law. The above report was generated using voice recognition software. It may contain grammatical, syntax o r spelling errors. Electronically signed by: Ryan Nnuez M.D. 09/03/2019 5:43 PM
[2019-09-04 06:09] LABS: Hematocrit (blood only) 25.4 % (37-47); Hemoglobin 8.1 g/dL (12.0-16.0); Mean Corpuscular Hemoglobin 27.6 pg (25-34); Mean Corpuscular Hgb Conc 31.9 g/dL (32-36); Mean Corpuscular Volume 86.4 fL (80-100); Mean Platelet Volume 9.6 fL (7.4-10.4); Platelet Count 171 K/uL (130-400); RDW Coefficient of Variation 13.6 % (11.5-14.5); RDW Standard Deviation 43.1 fL (36.4-46.3); Red Blood Count 2.94 M/uL (4.2-5.4); White Blood Count 4.18 K/uL (4.8-10.8)
[2019-09-04 06:44] LABS: BUN Creatinine Ratio 20.9 (10-20); Calcium 8.2 mg/dl (8.5-10.1); Creatinine Clr Calc Pharmacy 111.1 ml/min; Est GFR (African American) 117.8; Est GFR (Non-African American) 101.6; Potassium 3.7 mmol/L (3.5-5.1)
[2019-09-04] MEDS: OXYCODONE HCL IR 5 MG TAB (IMMEDIATE RELEASE) PO PRN ×3 (08:11→22:37)
[2019-09-04] MEDS: OMEPRAZOLE 20 MG CAPCR PO SCH (08:22)
[2019-09-04] MEDS: NON-FORMULARY PATIENT'S OWN MED PO SCH (08:24)
[2019-09-04] MEDS: ATENOLOL 50 MG TABLET PO SCH (08:25)
[2019-09-04] MEDS: CIPROFLOXACIN 500 MG TAB PO SCH ×2 (08:25→20:32)
[2019-09-04] MEDS: FLINTSTONES COMPLETE CHEWABLE TAB PO SCH (08:25)
[2019-09-04] MEDS ORDERED: RIVAROXABAN 10 MG TABLET PO SCH (09:00)
[2019-09-04] MEDS: TRAMADOL HCL 50 MG TABLET PO SCH (10:31)
[2019-09-04] MEDS: MoRPHine SULFATE 4 MG/ML 1 ML CARP\\VIAL IV PRN (12:25)
[2019-09-04] MEDS: ACETAMINOPHEN 500 MG TAB PO SCH ×2 (13:45→20:32)
[2019-09-04] MEDS: RIVAROXABAN 10 MG TABLET PO SCH (16:44)
--- NOTE | 2019-09-04 18:22 | Hospitalist Progress Note ---
Date of Service September 04, 2019 Assessment & Plan (1) Bilateral femoral fractures: Mechanical fall resulting in bilateral distal femoral fractures. Orthopedic consultation has chosen conservative management. Patient will undoubtedly need some supportive environment will ability return home while she is in the convalescent stage of these fractures possible Osteoporotic fractures to bilateral distal femurs procedural sedation in the OR with splinting 09/02/19 anticipate transfer to [facility] 09/04 Patient is on scheduled Tylenol and oxycodone for pain control (2) Hypertension: remains on atenolol (3) Acne rosacea: Typically takes minocycline every other day this will be maintained wound care has eval and treated lower leg wound cultures resulted with Pseudomonas ciprofloxacin has been started orally to complete a 7-day course (4) Paraplegia, unspecified: Patient typically has significant limitations to her lower extremity strength due to previous polio she cannot stand or bear weight she typically transfers with her arms she does not use a slide board however with her fractures and increased pain she is in need help with movement (5) DVT prophylaxis: With her family history of factor V Leiden we will employ heparin therapy will consider prophylacitc xarelto for ease of care at rehab, with a watchful eye on her anemia (6) GERD (gastroesophageal reflux disease): Omeprazole is continued (7) Acute blood loss anemia: secondary to long bone fractures, nearing transfusion range (8) Wound of lower extremity: Patient had wound seen by wound care this was cultured and grew Pseudomonas which is pansensitive. Subsequently she will begun on oral ciprofloxacin therapy it is improving however will complete a 7-day course. Admission and Anticipated Discharge Date Admission Date: August 31, 2019 Subjective This patient uncomfortable and concerned about returning to rehab at this time given her level of pain. She has some concerns also about her ability to function to the degree to participate in rehab. I check back later in the afternoon where she had a more favorable direction with our occupational therapist and likely if we get her pain is better controlled she will be transferred to rehab on 09/04/2019 Review of Systems Review of Systems: Mild to moderate distress and fatigue no headache, blurry or double vision no speech or swallowing issues no chest pain, pressure or palpitations no shortness of breath, cough or wheezes no abdominal pain, nausea or vomiting, diarrhea or constipation no dysuria, hematuria or frequency Bilateral lower thigh pain no back pain, CVA tenderness or radicular pain no bruising, bleeding or rashes Patient with persistent lower extremity weakness but now with pain from her fractures no complaints or anxiety or depression Physical Exam Physical Exam: The patient appeared well nourished and normally developed. Vital signs as documented. Head exam is normocephalic atraumatic no scleral icterus Neck is without JVD, thyromegaly, or carotid bruits. Lungs are clear to auscultation, no focal loss of breath sounds Cardiac exam, Rhythm is regular.. No murmurs, rubs or gallops. Abdominal exam reveals normal bowel sounds, soft non tender, no masses Extremities splinted bilaterally with pedal edema bilaterally Neurologic exam is alert and oriented, no focal loss of strength or sensation Skin is with improving erythema to the right lower extremity where there was a skin biopsy Psychologically is without concerns for anxiety or depression Results & Data Results & Data ([facility]) Vital Signs (Past 12 Hours) Vital Signs Temp Pulse Resp BP Pulse Ox 09/04/19 15:25 98.8 F 72 18 129/62 100 09/04/19 07:25 98.2 F 82 16 150/74 H 100 PG Care Time/CCT Total # of Minutes Spent Total Time Spent with Patient: Total time spent is greater than 50% in coordination of care (as documented) at patient's floor/unit and/or counseling patient: Coding Level of Care Code 12872 Subseq Hosp Care Lvl 2 Diagnoses Bilateral femoral fractures S72.91XA; S72.92XA Encounter type: initial encounter Fracture type: closed Hypertension I10 Hypertension type: unspecified Acne rosacea L71.9 Paraplegia, unspecified G82.20 DVT prophylaxis Z29.9 GERD (gastroesophageal reflux disease) K21.9 Acute blood loss anemia D62 Wound of lower extremity S81.809A (1) Bilateral femoral fractures Encounter type: initial encounter Fracture type: closed Qualified Code(s): S72.91XA - Unspecified fracture of right femur, initial encounter for closed fracture; S72.92XA - Unspecified fracture of left femur, initial encounter for closed fracture (2) Hypertension Hypertension type: unspecified Qualified Code(s): I10 - Essential (primary) hypertension
[2019-09-05] MEDS: MoRPHine SULFATE 2 MG/ML CARP IV PRN ×2 (01:33→12:39)
[2019-09-05] MEDS: CIPROFLOXACIN 500 MG TAB PO SCH (07:53)
[2019-09-05] MEDS: FLINTSTONES COMPLETE CHEWABLE TAB PO SCH (07:54)
[2019-09-05] MEDS: NON-FORMULARY PATIENT'S OWN MED PO SCH (07:54)
[2019-09-05] MEDS: OMEPRAZOLE 20 MG CAPCR PO SCH (07:55)
[2019-09-05] MEDS: ATENOLOL 50 MG TABLET PO SCH (07:55)
[2019-09-05] MEDS: OXYCODONE HCL IR 5 MG TAB (IMMEDIATE RELEASE) PO PRN (07:56)
[2019-09-05] MEDS: ACETAMINOPHEN 500 MG TAB PO SCH ×2 (07:57→12:23)
[2019-09-05] MEDS: TRAMADOL HCL 50 MG TABLET PO SCH (12:23)
--- NOTE | 2019-09-05 15:16 | Discharge Summary ---
Date of Service September 05, 2019 Admission HPI Per Admitting Provider Ms. 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 She typically transfers her spouse with her upper extremities and typically uses a wheelchair to get around. Despite her limited lower leg use she is very active mobile and functional. Patient had an unintentional fall while pushing the cart in front of her wheelchair in the [facility] parking lot the car began to get away or create a gap between the wheelchair and itself. Patient hung onto the cart and was pulled from wheelchair landing on her knees sustaining distal comminuted femur fractures bilaterally. Patient in the ER is requiring parenteral pain control and orthopedic consultation be undertaken for the best approach. Given the patient's short stature short and thick legs he may be challenging to find a external application degree immobility that would be comfortable and sustainable for duration of 1 to 2 months. Prior to the accident she has been feeling well having no problems or chest pain pressure shortness of breath anginal symptoms orthopnea or bleeding disorders. Patient does have a family history of factor V Leiden and was evaluated in the past by hematology. Patient has previously been through surgical procedures including cholecystectomy breast reduction and previous distant orthopedic surgery without having venous thromboembolic issues. The patient also has recently had an abnormal growth removed from her distal right leg by her outpatient primary care provider the area since been seeping likely due to some chronic venous stasis changes and there is some skin irritation surrounding it. It is unclear at this time whether it cellulitis with presentation she typically takes every other day minocycline which may be partially treating an infection if there was 1 to be present. Additional concern that this could be topical irritation from maceration. Principal Diagnosis bilateral osteoporotic distal femur fractures polio with le parapelegia Discharge Exam The patient appeared well Vital signs as documented. Lungs are clear to auscultation and appear unlabored Cardiac exam, Rhythm is regular.. No murmurs, rubs or gallops. Abdominal exam reveals normal bowel sounds, soft non tender, no masses Extremities are splinted tender to movement Neurologic exam is alert and oriented, no focal loss of strength or sensation Skin is without bruises or rashes Psychologically is without concerns for anxiety or depression Discharge Data Allergies Allergy/AdvReac Type Severity Reaction Status Date / Time latex Allergy Mild Rash Verified 08/31/19 16:07 No Known Drug Allergies Allergy Unknown NKDA Verified 03/15/15 11:05 Consultations 08/31/19 14:54 ED Decision to Admit Stat Procedures Performed Operation Date: 09/02/19 09:00 Actual Procedures p Bilateral Closed Reduction and Splinting Distal Femur Fracture(Bilateral) - Filiberto Hanna Ordered Studies 09/02/19 09:20 US - OR guided needle placemen Routine Hospital Course (1) Bilateral femoral fractures: Mechanical fall resulting in bilateral distal femoral fractures. Orthopedic consultation has chosen conservative management. Patient will u ndoubtedly need some supportive environment will ability return home while she is in the convalescent stage of these fractures possible Osteoporotic fractures to bilateral distal femurs procedural sedation in the OR with splinting 09/02/19 anticipate transfer to [facility] 09/04 Patient is on scheduled Tylenol and oxycodone for pain control (2) Hypertension: remains on atenolol (3) Acne rosacea: Typically takes minocycline every other day this will be maintained wound care has eval and treated lower leg wound cultures resulted with Pseudomonas ciprofloxacin has been started orally to complete a 7-day course (4) Paraplegia, unspecified: Patient typically has significant limitations to her lower extremity strength due to previous polio she cannot stand or bear weight she typically transfers with her arms she does not use a slide board however with her fractures and increased pain she is in need help with movement (5) DVT prophylaxis: With her family history of factor V Leiden we will employ heparin therapy will consider prophylacitc xarelto for ease of care at rehab, with a watchful eye on her anemia (6) GERD (gastroesophageal reflux disease): Omeprazole is continued (7) Acute blood loss anemia: secondary to long bone fractures, nearing transfusion range (8) Wound of lower extremity: Patient had wound seen by wound care this was cultured and grew Pseudomonas which is pansensitive. Subsequently she will begun on oral ciprofloxacin therapy it is improving however will complete a 7-day course. Discharge Plan Discharge Items Patient Disposition: Transfer Inpatient Rehab Fac Reason For Visit: BILATERAL DISTAL FEMUR FRACTURES Discharge Diagnosis: bilateral distal femur fractures from mechanical fall Activity: Per Instructions section Activity Comment: per PT/OT care plan Non-emergency contact: Primary Care Provider and Surgeon Call non-emergency contact if: you have any medication questions and your symptoms worsen Follow-up/Referrals: Isauro Olivarez MD [Primary Care Provider] - Diet: Regular Addtl Attending Provider Instructions: please follow up with [facility] pt may need additional pain medicine at night to help nocturnal pain Pending Studies at Discharge: No Stand-Alone Forms: My [facility] Skilled Items Patient informed of condition?: Yes DNR: No Discharge Level of Care: Acute rehab Communicable Disease: No Discharge Prognosis: Improving Lines: None Urinary Catheter: Yes Medications and DC Order Prescriptions: New Flintstones Complete (iron) Tablet,Chewable 1 tab PO QAM Qty: 30 RF: 0 ciprofloxacin HCl 500 mg Tablet 500 mg PO BID Qty: 10 RF: 0 acetaminophen 500 mg Tablet 1,000 mg PO TID Qty: 90 RF: 0 omeprazole 20 mg Capsule,Delayed Release(Dr/Ec) 20 mg PO DAILY Qty: 30 RF: 0 oxycodone 5 mg Tablet 15 mg PO Q6H PRN (Reason: pain) Qty: 60 RF: 0 Xarelto 10 mg Tablet 10 mg PO QDD Qty: 30 RF: 1 Continued minocycline 100 mg capsule 100 mg PO DAILY RF: 0 tramadol 50 mg tablet 50 mg PO DAILY RF: 0 atenolol 50 mg tablet 50 mg PO DAILY RF: 0 Discharge Orders: Discharge Order (Routine); Ordered 09/05/19 Ordered By: Perfecto Larios Admission Data Admit Date/Time: 08/31/19 15:08 Attending Provider: Perfecto Larios Admit Provider: Perfecto Larios Primary Care Provider: Isauro Olivarez Other Providers: Perfecto Larios ; [facility] Other Interventions: Discharge Summary Assessment (RN) Last Done: 09/05/19 12:10 DC Date/Time DO NOT enter until pt leaves facility: 09/05/19 12:57 Coding Diagnoses Bilateral femoral fractures S72.91XA; S72.92XA Encounter type: initial encounter Fracture type: closed Hypertension I10 Hypertension type: unspecified Acne rosacea L71.9 Paraplegia, unspecified G82.20 DVT prophylaxis Z29.9 GERD (gastroesophageal reflux disease) K21.9 Acute blood loss anemia D62 Wound of lower extremity S81.529A
== END 2019-09-05 12:57 | DRG 543 ==
LOC: ED 13:00 → 3E 15:08
DX: Z83.2 Family history of diseases of the blood and blood-forming organs and certain disorders involving the immune mechanism; Z91.040 Latex allergy status; G82.20 Paraplegia, unspecified; G89.11 Acute pain due to trauma; B96.5 Pseudomonas (aeruginosa) (mallei) (pseudomallei) as the cause of diseases classified elsewhere; L71.9 Rosacea, unspecified; Z79.2 Long term (current) use of antibiotics; D62 Acute posthemorrhagic anemia; W05.0XXA Fall from non-moving wheelchair, initial encounter; B91 Sequelae of poliomyelitis; Z99.3 Dependence on wheelchair; Y93.89 Activity, other specified; Y92.481 Parking lot as the place of occurrence of the external cause; M80.852A Other osteoporosis with current pathological fracture, left femur, initial encounter for fracture; M80.851A Other osteoporosis with current pathological fracture, right femur, initial encounter for fracture; Y99.8 Other external cause status; Z79.899 Other long term (current) drug therapy; I10 Essential (primary) hypertension; L08.9 Local infection of the skin and subcutaneous tissue, unspecified; K21.9 Gastro-esophageal reflux disease without esophagitis

== ENCOUNTER 2019-09-16 09:33 | Inpatient (IN) ==
[2019-09-16] MEDS ORDERED: MoRPHine SULFATE 2 MG/ML CARP IV PRN (12:33)
--- NOTE | 2019-09-16 13:06 | Anesthesiology Consultation ---
Date of Service September 16, 2019 Assessment & Plan (1) Encounter for pre-operative examination: COVID assessment: Patient's travel/history reviewed. Patient was a resident of [facility]. The patient will need a rapid COVID test the morning of her procedure. Testing was approved by Dr. Menendez. We will reassess morning of surgery. Chart Review Chart Review: Pending: Refer to Additional Notes / Consult section (Pt will need EKG and labs checked prior to procedure.) and Patient NOT seen in Pre Admission Testing History Surgery Operation Date: 09/17/19 11:55 Proposed Procedures p Bilateral Transfemoral Leg Amputations - Filiberto Hanna Height/Weight Height: 4 ft 11 in Weight: 85.4 kg Allergies Allergy/AdvReac Type Severity Reaction Status Date / Time adhesive tape Allergy Mild SKIN Verified 09/16/19 07:38 IRRITATION No Known Drug Allergies Allergy Unknown NKDA Verified 09/11/19 10:19 Medications Home Medications Medication Instructions Recorded Confirmed Last Taken atenolol 50 mg PO DAILY 08/31/19 09/16/19 09/16/19 08:30 minocycline 100 mg PO Q2D 08/31/19 09/16/19 09/15/19 tramadol 50 mg PO DAILY 08/31/19 09/16/19 09/16/19 08:30 omeprazole 20 mg PO DAILY #30 cap 09/05/19 09/16/19 09/16/19 05:00 oxycodone 15 mg PO Q6H PRN #60 tab 09/05/19 09/16/19 09/16/19 10:00 pediatric arwbzddc-plmp-hdg 1 tab PO QAM #30 tab 09/05/19 09/16/19 09/15/19 [Flintstones Complete (iron)] rivaroxaban [Xarelto] 10 mg PO QDD #30 tab 09/05/19 09/16/19 09/15/19 acetaminophen 650 mg PO Q4H PRN 09/16/19 09/16/19 09/16/19 08:30 hydrocodone-acetaminophen [[place]] 1 tab PO Q4H PRN 09/16/19 09/16/19 09/16/19 08:00 Past Medical History Medical History Femoral fracture BILATERAL GERD (gastroesophageal reflux disease) Lower extremity surgery planned CALCIUM DEPOSITS REMOVED 1956? Osteoarthritis Polio Diagnosed in the 1950s. Ambulatory with bracing until 2010, when shoulder pain restricted her to the motorized wheelchair. Exercise / Class Metabolic Activity IV < 2 Limit ADL/Bedbound Past Family History Family History Mother Factor V Leiden Past Surgical History Surgical History H/O bilateral breast reduction surgery History of carpal tunnel release LEFT History of colonoscopy History of esophagogastroduodenoscopy (EGD) History of hysterectomy Hx of cholecystectomy Social History Smoking Status: Never smoker Hx Alcohol Use: Yes Alcohol type: wine and hard liquor alcohol intake frequency: 0-2 drinks per day Hx Substance Use: No substance use type: does not use Physical Exam Vital Signs Last Vital Signs Temp 98.6 F 09/16/19 11:36 Pulse 74 09/16/19 11:36 Resp 18 09/16/19 11:36 BP 149/80 H 09/16/19 12:34 Pulse Ox 98 09/16/19 11:36 Testing Laboratory Results Laboratory Tests 09/04/19 09/04/19 05:21 05:21 WBC 4.18 L Hgb 8.1 L Plt Count 171 Sodium 139 Potassium 3.7 Chloride 107 Carbon Dioxide 25 BUN 9 Creatinine 0.43 L Glucose 91
--- NOTE | 2019-09-16 13:26 | History & Physical Report ---
Date of Service September 16, 2019 Assessment & Plan (1) Bilateral femoral fractures: Admission and Anticipated Discharge Date Admission Date: September 16 2019 Patient is being admitted today to ensure discontinuation of Eloquis and start preoperative heparin due to high risk of DVT and expected blood loss. Continue plan of care for bilateral trans-femoral amputations tomorrow. Continue pain medication as needed Her procedure will take place tomorrow and will be performed by Dr. Hanna. SubQ heparin was ordered. Patient will be n.p.o. after midnight History of Present Illness Yani is a 74-year-old female who suffered bilateral distal femoral fractures after she fell out of her motorized wheelchair onto a parking lot. She was admitted for pain control and she went to the operating room for manipulation and splinting under anesthesia.The procedure was uncomplicated but she still had persistent pain. Due to her nonambulatory status, she was transferred to inpatient rehab. She has significant pain that has been difficult to control thus far. Yani also visited the office in regards to bilateral amputations because of the fractures. Patient has a history of polio and states her legs have been "useless "for the past 9 years and has been unable to ambulate. Before 2010, she was ambulatory with extensive crutch use and bracing. She eventually developed shoulder pain that prevented her from continuing this. She states her legs are burning. She has been unable to tolerate this pain and thinks it is a great opportunity to continue with bilateral trans-foraminal amputation. She thinks this will help increase her mobility and give her more independence going forward. She has done a lot of research about this and has thought diligently. She would like to proceed. She denies any new injuries. She states she wants to move forward with amputation as soon as possible. Primary Care Provider: Isauro Olivarez MD Allergies Allergy/AdvReac Type Severity Reaction Status Date / Time adhesive tape Allergy Mild SKIN Verified 09/16/19 07:38 IRRITATION No Known Drug Allergies Allergy Unknown NKDA Verified 09/11/19 10:19 Home Medications Home Medications Medication Instructions Recorded Confirmed Type atenolol 50 mg PO DAILY 08/31/19 09/16/19 History minocycline 100 mg PO Q2D 08/31/19 09/16/19 History tramadol 50 mg PO DAILY 08/31/19 09/16/19 History omeprazole 20 mg PO DAILY #30 cap 09/05/19 09/16/19 Rx oxycodone 15 mg PO Q6H PRN #60 tab 09/05/19 09/16/19 Rx pediatric xvyiwlba-bxct-wpy 1 tab PO QAM #30 tab 09/05/19 09/16/19 Rx [Flintstones Complete (iron)] rivaroxaban [Xarelto] 10 mg PO QDD #30 tab 09/05/19 09/16/19 Rx acetaminophen 650 mg PO Q4H PRN 09/16/19 09/16/19 History hydrocodone-acetaminophen [[place]] 1 tab PO Q4H PRN 09/16/19 09/16/19 History Past Med/Surg History Medical History Femoral fracture BILATERAL GERD (gastroesophageal reflux disease) Lower extremity surgery planned CALCIUM DEPOSITS REMOVED 1956? Osteoarthritis Polio Diagnosed in the 1949s. Ambulatory with bracing until 2010, when shoulder pain restricted her to the motorized wheelchair. 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 Beliefs That Will Affect Care: None marital status: Single Current Living Situation: Rehab Other Information That Helps Us Care for You: No Feels Safe at Home: Yes Safety Concerns: Feels Safe At This Time Smoking Status: Never smoker Second Hand Exposure: Yes ( A CHILD) ; Hx Alcohol Use: Yes Alcohol type: wine and hard liquor Hx Substance Use: No Review of Systems Constitutional: no fever, no chills and no problem reported Eyes: as per Subjective / HPI; no problem reported Ear, Nose, Mouth, Throat: as per Subjective / HPI; no problem reported Respiratory: as per Subjective / HPI; no problem reported Cardiovascular: no problem reported Gastrointestinal: no nausea, no vomiting and no problem reported Musculoskeletal: as per Subjective / HPI Integumentary: as per Subjective / HPI; no problem reported Neurologic: no tingling, no paresthesia and no problem reported Psychiatric: no problem reported Endocrine: as per Subjective / HPI Hematologic / Lymphatic: as per Subjective / HPI Allergy / Immunological: no problem reported Physical Exam Musculoskeletal: Bilateral lower extremities: The bilateral lower extremities are in their usual position of external rotation to the hip and a slight 20 to 30 degrees knee flexion resting position. The splints are well fit. No areas of skin compromise or concern noted. Both extremities have areas of hyper keratosis and skin breakdown that are well dressed. There are no signs of infection. She has intact light touch sensation in her legs. She has slight wiggle to her toes bilaterally. Results & Data Results & Data ([facility]) Vital Signs (Past 12 Hours) Vital Signs Temp Pulse Resp BP Pulse Ox 09/16/19 12:34 149/80 H 09/16/19 11:36 37.0 C 74 18 167/85 H 98 Laboratory Tests 09/04/19 09/16/19 09/16/19 05:21 12:35 13:34 WBC 7.92 Hgb 9.8 L Hct 30.7 L Plt Count 386 Creatinine 0.43 L Glucose 91 Nasal Screen MRSA (PCR) Negative Code Status & VTE Plan VTE Prophylaxis Plan VTE Prophylaxis will be ordered: Yes PG Care Time/CCT Total # of Minutes Spent Total Time Spent with Patient: Total time spent is greater than 50% in coordination of care (as documented) at patient's floor/unit and/or counseling patient: Coding Level of Care Code 82550 Initial Inpt Care Lvl 3 Diagnoses Bilateral femoral fractures S72.91XA; S72.92XA Encounter type: initial encounter Fracture type: closed (1) Bilateral femoral fractures Encounter type: initial encounter Fracture type: closed Qualified Code(s): S72.91XA - Unspecified fracture of right femur, initial encounter for closed fracture; S72.92XA - Unspecified fracture of left femur, initial encounter for closed fracture
[2019-09-16 13:58] LABS: Hematocrit (blood only) 30.7 % (37-47); Hemoglobin 9.8 g/dL (12.0-16.0); Mean Corpuscular Hemoglobin 27.3 pg (25-34); Mean Corpuscular Hgb Conc 31.9 g/dL (32-36); Mean Corpuscular Volume 85.5 fL (80-100); Mean Platelet Volume 8.8 fL (7.4-10.4); Platelet Count 386 K/uL (130-400); RDW Coefficient of Variation 14.9 % (11.5-14.5); RDW Standard Deviation 46.3 fL (36.4-46.3); Red Blood Count 3.59 M/uL (4.2-5.4); White Blood Count 7.92 K/uL (4.8-10.8)
[2019-09-16] MEDS ORDERED: MAGNESIUM HYDROXIDE SUSP 30 ML UDC PO PRN (13:59)
[2019-09-16] MEDS ORDERED: bisacodyL 10 MG SUPP PR PRN (13:59)
[2019-09-16] MEDS ORDERED: NALOXONE HCL 0.4 MG/1 ML VIAL/CARP IV PRN (13:59)
[2019-09-16] MEDS: OXYCODONE HCL IR 5 MG TAB (IMMEDIATE RELEASE) PO PRN ×2 (14:35→21:25)
[2019-09-16] MEDS: ACETAMINOPHEN 500 MG TAB PO PRN (16:11)
[2019-09-16] MEDS: HEPARIN SOD 5,000 UNIT/0.5 ML VIAL SQ SCH ×2 (16:40→21:28)
[2019-09-16] MEDS: DOCUSATE SODIUM/SENNA 50/8.6MG TAB PO SCH (21:25)
[2019-09-17] MEDS: OXYCODONE HCL IR 5 MG TAB (IMMEDIATE RELEASE) PO PRN ×2 (03:02→20:43)
[2019-09-17] MEDS ORDERED: CEFAZOLIN 2000MG 2,000 MG/15 ML SYR IV SCH (06:00)
[2019-09-17] MEDS: HEPARIN SOD 5,000 UNIT/0.5 ML VIAL SQ SCH ×3 (06:11→21:47)
[2019-09-17] MEDS: ACETAMINOPHEN 500 MG TAB PO PRN (06:19)
[2019-09-17] MEDS: PANTOprazole 40 MG TAB PO SCH (06:20)
[2019-09-17] MEDS: ATENOLOL 50 MG TABLET PO SCH (08:14)
[2019-09-17] MEDS ORDERED: MINOCYCLINE PO SCH (09:00)
[2019-09-17] MEDS ORDERED: Nursing to Pharmacy Communication ONE (09:34)
--- NOTE | 2019-09-17 11:16 | History & Physical Bridge Note ---
Date of Service September 17, 2019 History & Physical Bridge Note I have examined the patient, reviewed the History & Physical and in the interval since the performance of the History & Physical I have noted the following changes of clinical significance: no changes noted. Uncomplicated preop stay. Reviewed risks and benefits of Bilateral Transfemoral Amputations. We discussed expectations for patient stay and rehabilitation postop. She desires to proceed. Patient is aware of COVID-19 risks. Patient is asymptomatic of any COVID-19 symptoms. Patient has been tested for COVID-19.
[2019-09-17] MEDS ORDERED: BUPIVACAINE LIPOSOME 1.3% 266 MG/20 ML VIAL ONE (13:10)
[2019-09-17] MEDS ORDERED: BUPIVACAINE 0.25% 30 ML VIAL ONE (13:11)
[2019-09-17] MEDS ORDERED: EPINEPHrine INJ 1 MG/ML AMP ONE (13:12)
--- NOTE | 2019-09-17 14:43 | Electrocardiogram Report ---
Test Reason : Blood Pressure : / mmHG Vent. Rate : 078 BPM Atrial Rate : 078 BPM P-R Int : 180 ms QRS Dur : 082 ms QT Int : 388 ms P-R-T Axes : 028 016 079 degrees QTc Int : 442 ms Normal sinus rhythm Cannot rule out Anterior infarct (cited on or before 22-FEB-2015) Abnormal ECG When compared with ECG of 22-FEB-2015 11:02, No significant change was found Confirmed by Lavell Marrufo ([id number]) on 09/17/2019 2:43:31 PM Referred By: Filiberto Hanna Confirmed By:Lavell Marrufo
[2019-09-17] MEDS ORDERED: SODIUM CHLORIDE 0.9% 250 ML IV PRN (14:56)
--- NOTE | 2019-09-17 18:07 | Post Operative Brief Note ---
PG Immediate Post Op with CF Date of Surgery September 17, 2019 Pre & Post Diagnosis Operation Date: 09/17/19 11:55 Pre-Op Diagnosis: Bilateral Distal Femoral Fractures, History of Polio Post-Op Diagnosis: Bilateral Distal Femoral Fractures, History of Polio I identified the patient and participated in the time-out.: Yes Procedure Operation Date: 09/17/19 11:55 Actual Procedures p Bilateral Transfemoral Leg Amputations(Bilateral) - Filiberto Hanna Surgeon Filiberto Hanna Public Policy Manager Vito Greer PA-C Estimated Blood Loss 350 Findings Consistent with Post-Op Diagnosis Specimens Specimen Description: A. Left Leg Above the Knee Amputation B. Right Leg Above the Knee Amputation Drains Sykes Catheter and [place] Drain (15Fr Bilateral Lower Extremities)
[2019-09-17] MEDS ORDERED: fentaNYL citrate 100 MCG/2 ML VIAL ONE (18:38)
[2019-09-17] MEDS ORDERED: ACETAMINOPHEN 1000 MG/100 ML IV IV ONE (18:45)
[2019-09-17] MEDS ORDERED: ePHEDrine sulfate 50 MG/ML AMP IV PRN (18:45)
[2019-09-17] MEDS ORDERED: ATROPINE SULFATE 0.1 MG/ML 10ML SYR IV PRN (18:45)
[2019-09-17] MEDS ORDERED: ACETAMINOPHEN 1,000 MG/100 ML VIAL IV STA (18:45)
[2019-09-17] MEDS: fentaNYL citrate 100 MCG/2 ML VIAL IV PRN ×4 (18:52→19:07)
[2019-09-17] MEDS: HYDROmorphone INJ 1 MG/ML SYRINGE IV PRN ×4 (19:12→19:27)
--- NOTE | 2019-09-17 19:53 | Anesthesiology Progress Note ---
Date of Service September 17, 2019 Anesthesia Post Procedure Vital Signs Vital Signs: Temp Pulse Pulse Resp BP Pulse Ox 09/17/19 19:25 87 24 140/95 100 09/17/19 19:15 81 19 173/83 H 100 09/17/19 19:05 36.4 C L 86 17 170/83 H 95 09/17/19 18:55 92 H 13 182/83 H 100 09/17/19 18:45 89 15 181/107 H 100 09/17/19 18:35 96 H 19 160/92 H 100 09/17/19 18:25 36.8 C 93 H 19 197/109 H 100 09/17/19 12:05 37.4 C 77 18 168/71 H 99 09/17/19 10:39 144/83 H 09/17/19 07:15 37.0 C 77 17 163/78 H 98 09/16/19 23:46 36.8 C 74 18 158/80 H 98 Pain Intensity Left Knee: Pain Intensity: 5 Bilateral Lower Leg: Pain Intensity: 8 Transfer of Care Handoff Completed per policy Notes Mental Status: alert / awake / arousable and participated in evaluation Patient Amnestic to Procedure: Yes Nausea / Vomiting: adequately controlled Pain: adequately controlled Airway Patency, RR, SpO2: stable & adequate BP & HR: stable & adequate Hydration State: stable & adequate Anesthetic Complications: no major complications apparent and Pt Satisfied with anesthetic care Notes: The patient's pain is much improved after receiving additional IV narcotics and Ofirmev, however she continues to complain of a pressure like sensation in the inner left thigh. She states she feels something is pushing into her inner thigh. The PACU nurses per Dr. Hanna's request undressed the leg and did not see anything that would be compressing her leg. Dr. Hanna was notified and will see the patient on the floor once he is finished with his current operation. The patient was consented for bilateral femoral nerve block preoperatively, however Dr. Hanna preferred to inject Exparel and 0.25% Bupivicaine bilaterally intraoperatively.
[2019-09-17] MEDS ORDERED: MAGNESIUM HYDROXIDE SUSP 30 ML UDC PO PRN (20:13)
[2019-09-17] MEDS ORDERED: NALOXONE HCL 0.4 MG/1 ML VIAL/CARP IV PRN (20:13)
[2019-09-17] MEDS ORDERED: bisacodyL 10 MG SUPP PR PRN (20:13)
[2019-09-17] MEDS: FLINTSTONES COMPLETE CHEWABLE TAB PO SCH (20:30)
[2019-09-17] MEDS: LACTATED RINGER'S 1,000 ML IV SCH (20:45)
[2019-09-17] MEDS ORDERED: DOCUSATE SODIUM/SENNA 50/8.6MG TAB PO SCH (21:00)
--- NOTE | 2019-09-17 21:12 | Operative Report ---
PG Post Operative Report Pre & Post Diagnosis Operation Date: 09/17/19 11:55 Pre-Op Diagnosis: Bilateral Distal Femoral Fractures, History of Polio Post-Op Diagnosis: Bilateral Distal Femoral Fractures, History of Polio I identified the patient and participated in the time-out.: Yes Procedure Operation Date: 09/17/19 11:55 Actual Procedures p Bilateral Transfemoral Leg Amputations(Bilateral) - Filiberto Hanna Surgeon Filiberto Hanna Adjunct Instructor In Economics Vito Greer PA-C Estimated Blood Loss 350 Findings See Below Bilateral transfemoral fractures completed at the proximal aspect of the metadiaphyseal junction. The abductors, posterior gastroc flap and quadricep tendon were all myodesed. Specimens Bilateral distal extremity from transfemoral amputations. Anesthesia Type General Complications none Disposition Accompanied Patient To Recovery: No Disposition: Recovery Room Indications 74-year-old female who has a history of post polio paraplegia and subsequently sustained bilateral distal osteoporotic femoral fractures, complicated by significant pain. She elected to undergo bilateral transfemoral amputations because she felt that her legs were useless at this point and her fracture pain was so difficult to control. We had a long discussion in clinic as well as during her previous inpatient stay from her fractures about options of management for her lower extremities going forward. She was having skin changes and being evaluated by dermatology for scaling and pitting and chronic wounds. She was highly independent for all transfers in a community ambulator with her wheelchair prior to these fractures. After our discussion, we both felt that her best way to regain her independence and manage her fracture pain would be to undergo bilateral transfemoral amputations. The risk and benefits were discussed in detail in her clinic note. Informed consent was obtained in the clinic. Informed consent was once again confirmed today in the preop area. Description of Procedure On the day of surgery, the patient was greeted in the preoperative holding area. The informed consent was reviewed and confirmed by myself and the patient. The patient identified the surgical site and was marked by me. The patient was then turned over to anesthesia. She was taken to the operating room placed upon the OR table. Anesthetics were induced and the airway was secured. The bilateral lower extremities then prepped and draped in the usual sterile fashion. Surgical timeout was called by the circulating nurse and verified by all present. Antibiotics had been infused and equipment was available and functional. Surgery was directed to the left lower extremity first. A fishmouth style incision was planned and carried out with the anterior traversing the patella. Medial lateral extensions were carried out. Sharp dissection was performed using a knife and Bovie electrocautery. There was abundant serous fluid throughout the soft tissues and some generalized diffuse bleeding, so the leg was extracted exsanguinated with elevation and the tourniquet was inflated to 250 mmHg for less than 1 hour. Dissection was continued along the medial aspect of the knee until Fernando's Canal was encountered. The neurovascular structures were then isolated. The femoral artery and nerve were then doubly ligated with 0 silk suture and transected for control. The sciatic nerve was identified and infused with approximately 15 cc of a mixture of Exparel expanded with 30 cc of quarter percent Marcaine. The sural nerve was also dissected and infused with 5 cc of the anesthetic solution. The nerves were all placed on traction after being anesthetized and transected with electrocautery. Once the major vessels and nerve structures were managed, dissection continued about the femur anteriorly and carried distally. The fracture was exploited to open up the femoral canal. This allowed access to the posterior structures. We developed the gastroc flap back to its origin and did elevate the quadricep mechanism from the distal femur to expose it. Then used a sagittal saw to traverse the metadiaphyseal junction. The saw was then used to bevel the edges. The marrow contents were stable. Wound was then thoroughly irrigated. We then began the myodesis procedure by using #5 Tycron suture to perform mattress sutures with buried knots to myodesed the extensor mechanism to the posterior hamstrings and gastroc flaps. The abductor tendon was also incorporated into this myodesis to provide a full soft tissue buttress to the distal femur remnant. Skin flaps were then approximated using 0 Vicryl suture in the deep fascial layer followed by several 0 Vicryl sutures traversing the deep dermis to align her flaps. 3-0 Vicryl was then used in the dermal layer to approximate the skin and vahid were used for final closure. A 15 Japanese ZEINAB round drain was placed superficial to the myodesis and under the skin flaps and exiting the lateral aspect of the thigh. The left lower extremity was then placed comfortably on the table was attention was directed the right lower extremity. Similar technique was used in the right lower extremity. The right lower extremity was exsanguinated first with an Esmarch bandage and then the tourniquet was inflated. The fracture was more proximal and it directed our trans-femoral cut. Again fishmouth incisions were planned and carried out. The medial extent was exploited to approach Fernando's canal which was dissected. This dissection carried around to the posterior aspect of the femur. The abductors were dissected to allow access to the posterior femur. We worked around the medial head of the gastroc flap to ensure identification of the neurovascular structures in the popliteal region and then followed these more proximally for there management. Again, the the deep femoral artery and vein were dissected and doubly ligated with 0 silk suture before distal transection. Again, all nervous tissue that was encountered was injected with Exparel and Marcaine solution. Specifically, the sciatic nerve was identified and infused proximally in the soft tissues before traction and transection. The same procedure was carried out for the saphenous nerve more superficially. Once again a myodesis was performed with the quadricep tendon over top the distal femur and tied in with the gastroc flaps, hamstrings and adductor tendon. A 15 Japanese round ZEINAB drain was then placed above the myodesis layer and under the skin and exiting the proximal lateral thigh. The skin flaps were then provisionally reduced. There was an excess of the skin flap on the posterior medial aspect which was dressed with additional skin resection. 0 Vicryl suture was used approximate the skin flaps of the deep fascial layer followed by several 0 Vicryl sutures to line up her skin flaps in the deep dermal layer. 3- 0 Vicryl and vahid were used for final closure in the right as well. Both wounds were dressed with Aquasol dressing to maintain sterility on the floor. The wounds were additionally dressed with Xeroform about the drain, drain dressing, abundant sterile web roll padding followed by a distal extremity stockinette which was doubled over. We then placed splints to protect the distal stumps using Ortho-Glass and wrapped with a flex master Bubba wrap to provides some mild compression. The patient tolerated procedure well, was extubated in the operating without complication, and transported to the recovery area in stable condition. Disposition: She will remain an inpatient till pain is well tolerated and the drain output has substantially reduced. She will be on DVT prophylaxis consisting of subcutaneous heparin until transition to an outpatient dose of Cyndi alfreda, that she was on before. We use routine postoperative narcotic pain management. Sharp routine discharge planning and PT/OT consults to help her mobilize and transfer with her new residual extremities. I attest to the content of the Intraoperative Record and any orders documented therein. Any exceptions are noted below.
[2019-09-17] MEDS: DOCUSATE SODIUM/SENNA 50/8.6MG TAB PO SCH (21:38)
[2019-09-17] MEDS ORDERED: CEFAZOLIN 2000MG 2,000 MG/15 ML SYR IV ONE (22:00)
[2019-09-18] MEDS: OXYCODONE HCL IR 5 MG TAB (IMMEDIATE RELEASE) PO PRN ×6 (00:34→17:43)
[2019-09-18] MEDS: LACTATED RINGER'S 1,000 ML IV SCH ×2 (01:43→12:13)
[2019-09-18] MEDS: ONDANSETRON INJ 2 MG/ML 2 ML VIAL IV PRN (05:42)
[2019-09-18] MEDS: MoRPHine SULFATE 4 MG/ML 1 ML CARP\\VIAL IV PRN ×2 (05:42→11:21)
[2019-09-18] MEDS ORDERED: OXYCODONE HCL IR 5 MG TAB (IMMEDIATE RELEASE) PO STA (06:31)
[2019-09-18] MEDS ORDERED: HYDROmorphone INJ 1 MG/ML SYRINGE IV STA (06:32)
[2019-09-18] MEDS: PANTOprazole 40 MG TAB PO SCH (06:37)
[2019-09-18] MEDS: HEPARIN SOD 5,000 UNIT/0.5 ML VIAL SQ SCH ×3 (06:41→21:01)
--- NOTE | 2019-09-18 08:02 | Orthopedic Progress Note ---
Date of Service September 18, 2019 Assessment & Plan (1) S/P bilateral above knee amputation: Continue current plan of care. Patient is currently on heparin for DVT prophylaxis. She will eventually transition to Eliquis. Patient's dressings should remain in place until at least post op day 3 if no significant drainage is noted. Patient will continue a regular diet Patient's pain will be managed with medications as needed Patient will likely work with PT/OT soon. She is to remain as non-weight bearing. Supervising Physician Co-Signing Physician Notes Chart reviewed. Physician medication assistant's note reviewed and I agree. Expected reduction in H&H today and will dressed with iron and vitamin C supplementation. We will continue labs daily. Her heart rate is within normal limits so we will hold on any transfusions for now. She is aware of this possibility. Plan today is to evaluate PT/OT and discharge planning. She is an independent woman who previously lived alone and managed all transfers from her wheelchair under her own power. We can work towards that functional status with PT/OT. May need to get her motorized wheelchair to the hospital for evaluation of her transfer ability. She should continue inpatient stay for pain control, cardiopulmonary status with blood loss, drain management, and transition to appropriate outpatient DVT prophylaxis. Modesto Vyas is a pleasant 74 year old female who is one day s/p bilateral transfemoral amputation. Patient states she was in significant pain post operatively and had difficulty sleeping through the night. She was given oxycodone and morphine last night which mildly reduced her pain. Patient was given Dilaudid this morning and states it has helped reduce her pain the most. Says she is finally comfortable. She also reports mild phantom limb syndrome in both lower extremities. She has not yet been seen by Physical Therapy. Patient understands we will continue to monitor her pain and drain output. She denies fever, chills, sweats. Review of Systems Constitutional: no fever, no chills and no problem reported Eyes: as per Subjective / HPI; no problem reported Ear, Nose, Mouth, Throat: as per Subjective / HPI; no problem reported Respiratory: as per Subjective / HPI; no problem reported Cardiovascular: no edema and no problem reported Gastrointestinal: no nausea, no vomiting and no problem reported Musculoskeletal: as per Subjective / HPI Integumentary: as per Subjective / HPI; no problem reported Neurologic: no tingling, no paresthesia and no problem reported Psychiatric: no problem reported Endocrine: as per Subjective / HPI Hematologic / Lymphatic: as per Subjective / HPI Allergy / Immunological: no problem reported Physical Exam Musculoskeletal: Patient was laying comfortably in bed upon arrival. A+Ox3 Bilateral lower extremities: Patient was laying comfortably in bed upon arrival. Bilateral drains had less than 15 cc of serosanguineous fluid Bubba wrap and splints in place bilaterally, remained in place for exam. No evidence of drainage/discharge. Patient is able to activate her quad muscles. Neurovascularly intact. Results & Data ([facility]) Vital Signs (Past 12 Hours) Vital Signs Temp Pulse Pulse Resp BP BP Pulse Ox 09/18/19 07:23 37.1 C 92 H 18 135/70 96 09/18/19 03:34 36.8 C 80 18 135/72 100 09/17/19 23:12 36.7 C 90 18 162/73 H 100 09/17/19 22:15 36.8 C 85 16 162/73 H 99 09/17/19 21:14 36.6 C 83 18 166/78 H 96 09/17/19 20:55 36.6 C 82 18 165/76 H 97 09/17/19 20:10 36.7 C 87 20 178/79 H 98 09/17/19 19:55 84 19 160/87 H 100 09/17/19 19:45 36.7 C 90 13 158/97 H 100 PG Care Time/CCT Total # of Minutes Spent Total Time Spent with Patient: Total time spent is greater than 50% in coordination of care (as documented) at patient's floor/unit and/or counseling patient: Coding Level of Care Code 40409 Subseq Hosp Care Lvl 1 Diagnoses S/P bilateral above knee amputation Z89.611; Z89.612
[2019-09-18] MEDS: FLINTSTONES COMPLETE CHEWABLE TAB PO SCH (08:27)
[2019-09-18] MEDS: ATENOLOL 50 MG TABLET PO SCH (08:27)
[2019-09-18] MEDS: MINOCYCLINE PO SCH (08:27)
[2019-09-18 09:36] LABS: Hematocrit (blood only) 24.8 % (37-47); Hemoglobin 7.6 g/dL (12.0-16.0); Mean Corpuscular Hemoglobin 26.5 pg (25-34); Mean Corpuscular Hgb Conc 30.6 g/dL (32-36); Mean Corpuscular Volume 86.4 fL (80-100); Mean Platelet Volume 8.4 fL (7.4-10.4); Platelet Count 373 K/uL (130-400); RDW Coefficient of Variation 14.8 % (11.5-14.5); RDW Standard Deviation 46.6 fL (36.4-46.3); Red Blood Count 2.87 M/uL (4.2-5.4); White Blood Count 9.13 K/uL (4.8-10.8)
[2019-09-18 09:52] LABS: BUN Creatinine Ratio 26.4 (10-20); Calcium 8.6 mg/dl (8.5-10.1); Creatinine Clr Calc Pharmacy 123.7 ml/min; Est GFR (African American) 121.6; Est GFR (Non-African American) 104.9; Potassium 3.8 mmol/L (3.5-5.1)
[2019-09-18] MEDS: FERROUS FUMARATE/ASCORBIC ACID 65 MG CAPCR PO SCH (13:20)
--- NOTE | 2019-09-18 18:57 | Orthopedic Progress Note ---
Date of Service September 18, 2019 Assessment & Plan (1) S/P bilateral above knee amputation: Limbs were redressed with the compressive stockinette. This can be adjusted as needed. The surgical incisions have a Aquasol dressing that is contained beneath the web roll and stockinette. Subjective Patient seen on evening rounds and had significant pain related to the Bubba wrap compressing high in her thigh. She reported the pain was much improved with removal of the Bubba wrap. Results & Data ([facility]) Vital Signs (Past 12 Hours) Vital Signs Temp Pulse Resp BP BP Pulse Ox 09/18/19 15:39 37.2 C 89 18 128/73 100 09/18/19 11:42 37.2 C 85 18 139/70 98 09/18/19 07:23 37.1 C 92 H 18 135/70 96 PG Care Time/CCT Total # of Minutes Spent Total Time Spent with Patient: Total time spent is greater than 50% in coordination of care (as documented) at patient's floor/unit and/or counseling patient: Coding Level of Care Code None Diagnoses S/P bilateral above knee amputation Z89.611; Z89.612
[2019-09-18] MEDS: ACETAMINOPHEN 500 MG TAB PO PRN (19:41)
[2019-09-18] MEDS: DOCUSATE SODIUM/SENNA 50/8.6MG TAB PO SCH (20:53)
[2019-09-19] MEDS: LACTATED RINGER'S 1,000 ML IV SCH ×2 (00:38→13:22)
[2019-09-19] MEDS: HEPARIN SOD 5,000 UNIT/0.5 ML VIAL SQ SCH ×3 (06:21→21:29)
[2019-09-19] MEDS: PANTOprazole 40 MG TAB PO SCH (06:25)
[2019-09-19] MEDS: OXYCODONE HCL IR 5 MG TAB (IMMEDIATE RELEASE) PO PRN ×3 (06:59→20:33)
[2019-09-19] MEDS: FERROUS FUMARATE/ASCORBIC ACID 65 MG CAPCR PO SCH (08:20)
[2019-09-19] MEDS: FLINTSTONES COMPLETE CHEWABLE TAB PO SCH (08:21)
[2019-09-19] MEDS: ATENOLOL 50 MG TABLET PO SCH (08:21)
[2019-09-19 11:08] LABS: Prothrombin Time 10.9 Seconds (9.0-12.0)
[2019-09-19 11:16] LABS: BUN Creatinine Ratio 18.3 (10-20); Calcium 8.8 mg/dl (8.5-10.1); Creatinine Clr Calc Pharmacy 126.9 ml/min; Est GFR (African American) 122.7; Est GFR (Non-African American) 105.8; Potassium 3.5 mmol/L (3.5-5.1)
[2019-09-19 11:17] LABS: Basophils # (auto) 0.01 K/uL (0-0.2); Basophils % (auto) 0.1 %; Eosinophils # (auto) 0.04 K/uL (0-0.5); Eosinophils % (auto) 0.6 %; Hematocrit (blood only) 21.8 % (37-47); Hemoglobin 6.9 g/dL (12.0-16.0); Immature Granulocytes # (auto) 0.02 K/uL (0.00-0.02); Immature Granulocytes % (auto) 0.3 %; Lymphocytes # (auto) 0.59 K/uL (1.2-3.4); Lymphocytes % (auto) 8.7 %; Mean Corpuscular Hemoglobin 27.2 pg (25-34); Mean Corpuscular Hgb Conc 31.7 g/dL (32-36); Mean Corpuscular Volume 85.8 fL (80-100); Mean Platelet Volume 8.7 fL (7.4-10.4); Monocytes % (auto) 8.8 %; Neutrophils # (auto) 5.52 K/uL (1.4-6.5); Neutrophils % (auto) 81.5 %; Platelet Count 307 K/uL (130-400); Red Blood Count 2.54 M/uL (4.2-5.4); White Blood Count 6.78 K/uL (4.8-10.8)
[2019-09-19] MEDS ORDERED: SODIUM CHLORIDE 0.9% 250 ML IV PRN ×3 (11:38→11:59)
--- NOTE | 2019-09-19 11:53 | Orthopedic Progress Note ---
Date of Service September 19, 2019 Assessment & Plan (1) Acute blood loss anemia: She was admitted with subacute anemia from her previous bilateral femoral fractures. Her preoperative labs showed some recovery since her initial admission however she entered her bilateral transfemoral amputation procedure lower than her baseline. Today she continues to drift in her trend with hemoglobin hematocrit. This is expected and to allow 48 to 72 hours postop. Today would like to mobilize her more and her heart rate is peaking into the high 90s while she is sedentary, which is abnormal for her. Her pressures have been elevated from baseline since surgery, likely related to acute blood loss in the setting of subacute anemia.. I recommended transfusion today for expected continued drift and need to mobilize for overall general health. Present on Admission?: Yes (2) Bilateral femoral fractures: Present on Admission?: Yes (3) S/P bilateral above knee amputation: Postop day 2 status post bilateral transfemoral amputations for persistent pain after femoral fracture in the setting of chronic paraplegia. She is making slow and steady progress. She still managing fluid shifts and hemodilution and acute blood loss in the setting of subacute anemia from her fracture admission. Recommend continue admission to manage her fluids, evaluate her cardiopulmonary status in the setting of anemia, and manage her acute pain. Plan for dressing change tomorrow to a stockinette. Drains will likely can be discontinued tomorrow if they continue their trends. Will also transition to Xarelto for 6 weeks for VTE chemoprophylaxis. Stop heparin at midnight begin Xarelto tomorrow. Dispo: We will evaluate her response to transfusion and pain control. If she can mobilize likely PT/OT and remain asymptomatic with regards to anemia, she could potentially be ready for transfer to the next level care by 09/20/2019. Plan for transfer to [facility] for inpatient rehabilitation. She will need a follow-up at 2 weeks postop at the orthopedic clinic for wound check and potential staple removal. Present on Admission?: No Subjective She reports pain is improved from a 10 out of 10 yesterday to approximately 6 out of 10 on average today. Her appetite is low but she is tolerating p.o. di et. She did feel feverish last evening however she thought it was due to to the covers in her bed. She had significant pain that interfere with progression with PT and OT. Today she reports he feels little cold. Otherwise, she thinks she is making good progress and wants to go to [facility] for rehabilitation versus home with home health -which is the recommendation of our therapy colleagues. Review of Systems Review of Systems: All systems reviewed & are unremarkable except as noted in HPI & below Physical Exam Constitutional: WD/WN, vitals as above + well hydrated; no acute distress Respiratory: normal respiratory effort; no respiratory distress and no labored breathing Musculoskeletal: Patient was laying comfortably in bed upon arrival. A+Ox3 Bilateral lower extremities: Lying comfortably with residual limb slightly elevated. Left ZEINAB drain had serosanguineous fluid less than 20 mL's. The right ZEINAB drain had more serous appearing fluid and scant in the drain. Stockinette and underlying web roll appear to be clean dry and intact. There was minimal drainage around the ZEINAB drain sites. Psychiatric: A+Ox3, euthymic affect Apperance: appropriately groomed Eye Contact: good eye contact Results & Data ([facility]) Vital Signs (Past 12 Hours) Vital Signs Temp Pulse Resp BP Pulse Ox 09/19/19 07:22 37.2 C 92 H 18 146/76 H 98 Laboratory Tests 09/18/19 09/19/19 09:22 10:44 Hgb 7.6 L 6.9 L* Hct 24.8 L 21.8 L Plt Count 373 307 PG Care Time/CCT Total # of Minutes Spent Total Time Spent with Patient: Total time spent is greater than 50% in coordination of care (as documented) at patient's floor/unit and/or counseling patient: Coding Level of Care Code None Diagnoses Acute blood loss anemia D62 Bilateral femoral fractures S72.91XA; S72.92XA Encounter type: initial encounter Fracture type: closed S/P bilateral above knee amputation Z89.611; Z89.612 (1) Bilateral femoral fractures Encounter type: initial encounter Fracture type: closed Qualified Code(s): S72.91XA - Unspecified fracture of right femur, initial encounter for closed fracture; S72.92XA - Unspecified fracture of left femur, initial encounter for closed fracture
[2019-09-19] MEDS: ACETAMINOPHEN 500 MG TAB PO PRN ×2 (14:00→22:28)
[2019-09-19] MEDS: DOCUSATE SODIUM/SENNA 50/8.6MG TAB PO SCH (21:29)
[2019-09-20] MEDS: PANTOprazole 40 MG TAB PO SCH (06:00)
[2019-09-20 07:22] LABS: Hematocrit (blood only) 31.1 % (37-47); Hemoglobin 10.1 g/dL (12.0-16.0); Mean Corpuscular Hemoglobin 27.6 pg (25-34); Mean Corpuscular Hgb Conc 32.5 g/dL (32-36); Mean Platelet Volume 9.4 fL (7.4-10.4); Platelet Count 253 K/uL (130-400); RDW Coefficient of Variation 14.9 % (11.5-14.5); RDW Standard Deviation 46.1 fL (36.4-46.3); Red Blood Count 3.66 M/uL (4.2-5.4); White Blood Count 5.73 K/uL (4.8-10.8)
[2019-09-20] MEDS: FERROUS FUMARATE/ASCORBIC ACID 65 MG CAPCR PO SCH (08:28)
[2019-09-20] MEDS: MINOCYCLINE PO SCH (08:29)
[2019-09-20] MEDS: FLINTSTONES COMPLETE CHEWABLE TAB PO SCH (08:29)
[2019-09-20] MEDS: ATENOLOL 50 MG TABLET PO SCH (08:29)
[2019-09-20] MEDS ORDERED: RIVAROXABAN 10 MG TABLET PO SCH (09:00)
[2019-09-20] MEDS: ONDANSETRON INJ 2 MG/ML 2 ML VIAL IV PRN (09:16)
[2019-09-20] MEDS: LACTATED RINGER'S 1,000 ML IV SCH (09:46)
[2019-09-20] MEDS: OXYCODONE HCL IR 5 MG TAB (IMMEDIATE RELEASE) PO PRN (10:52)
--- NOTE | 2019-09-20 11:07 | Orthopedic Progress Note ---
Date of Service September 20, 2019 Assessment & Plan (1) Acute blood loss anemia: She was admitted with subacute anemia from her previous bilateral femoral fractures. Her preoperative labs showed some recovery since her initial admission however she entered her bilateral transfemoral amputation procedure lower than her baseline. There is a good response to the 2 units of packed red blood cells. She appears well today and CBC is encouraging. Her heart rate has come down nicely. Present on Admission?: Yes (2) Bilateral femoral fractures: Present on Admission?: Yes (3) S/P bilateral above knee amputation: Postop day 3 status post bilateral transfemoral amputations for persistent pain after femoral fracture in the setting of chronic paraplegia. Continues to make slow and steady progress. She appears hemodynamically stable and we should try to mobilize her as much as possible. We will add Neurontin to help control pain and hopefully limit some of the narc otic use. She has been off parenteral pain control for the past day. Dressings and drains have been changed and ready for discharge. She has been converted to Xarelto for DVT prophylaxis for 6 weeks. Dispo: We will evaluate whether she is symptomatic from anemia when she sits up and attempt to transfer with PT/OT. If she does well, she is medically stable and can transfer to the next level of care. Plan for transfer to [facility] for inpatient rehabilitation. She will need a follow-up at 2 weeks postop at the orthopedic clinic for wound check and potential staple removal. Present on Admission?: No Subjective Lilliam reports improved pain profile. She still have spikes of pain that she describes as like a hot poker, particularly in the left residual limb. She did get some sleep. She has been unable to transfer out of the bed yet. PT is pending for today. Otherwise she reports no issues. She does not describe any febrile symptoms. Review of Systems Review of Systems: All systems reviewed & are unremarkable except as noted in HPI & below Physical Exam Constitutional: WD/WN, vitals as above + well hydrated; no acute distress Respiratory: normal respiratory effort; no respiratory distress and no labored breathing Musculoskeletal: Patient was laying comfortably in bed upon arrival. A+Ox3 Bilateral lower extremities: Lying comfortably with residual limb slightly elevated. Left ZEINAB drain had serosanguineous fluid less than 10 mL's. The right ZEINAB drain had more serous appearing fluid and scant in the drain. Stockinette and underlying web roll appear to be clean dry and intact. There was minimal drainage around the ZEINAB drain sites. Drains were removed without complication. The sites appeared healthy. Wounds are dressed with Xeroform and Allevyn dressing. All web roll was removed and the residual lamina stockinette was applied. Tubigrip's were attempted but they were too tight. The Tubigrip's were left at the bedside. Compressive stocking that will be adequate for now. Psychiatric: A+Ox3, euthymic affect Apperance: appropriately groomed Eye Contact: good eye contact Results & Data ([facility]) Vital Signs (Past 12 Hours) Vital Signs Temp Pulse Resp BP BP Pulse Ox 09/20/19 07:29 36.6 C 80 18 174/86 H 97 09/19/19 23:18 37.2 C 79 16 145/71 H 99 Laboratory Tests 09/20/19 05:58 WBC 5.73 Hgb 10.1 L D Hct 31.1 L Plt Count 253 PG Care Time/CCT Total # of Minutes Spent Total Time Spent with Patient: Total time spent is greater than 50% in coordination of care (as documented) at patient's floor/unit and/or counseling patient: Coding Level of Care Code None Diagnoses Acute blood loss anemia D62 Bilateral femoral fractures S72.91XA; S72.92XA Encounter type: initial encounter Fracture type: closed S/P bilateral above knee amputation Z89.611; Z89.612 (1) Bilateral femoral fractures Encounter type: initial encounter Fracture type: closed Qualified Code(s): S72.91XA - Unspecified fracture of right femur, initial encounter for closed fracture; S72.92XA - Unspecified fracture of left femur, initial encounter for closed fracture
--- NOTE | 2019-09-20 11:34 | Discharge Summary ---
Date of Service September 20, 2019 Admission HPI Per Admitting Provider Ms. 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 She typically transfers her spouse with her upper extremities and typically uses a wheelchair to get around. Despite her limited lower leg use she is very active mobile and functional. Patient had an unintentional fall while pushing the cart in front of her wheelchair in the [facility] parking lot the car began to get away or create a gap between the wheelchair and itself. Patient hung onto the cart and was pulled from wheelchair landing on her knees sustaining distal comminuted femur fractures bilaterally. Patient in the ER is requiring parenteral pain control and orthopedic consultation be undertaken for the best approach. Given the patient's short stature short and thick legs he may be challenging to find a external application degree immobility that would be comfortable and sustainable for duration of 1 to 2 months. Prior to the accident she has been feeling well having no problems or chest pain pressure shortness of breath anginal symptoms orthopnea or bleeding disorders. Patient does have a family history of factor V Leiden and was evaluated in the past by hematology. Patient has previously been through surgical procedures including cholecystectomy breast reduction and previous distant orthopedic surgery without having venous thromboembolic issues. The patient also has recently had an abnormal growth removed from her distal right leg by her outpatient primary care provider the area since been seeping likely due to some chronic venous stasis changes and there is some skin irritation surrounding it. It is unclear at this time whether it cellulitis with presentation she typically takes every other day minocycline which may be partially treating an infection if there was 1 to be present. Additional concern that this could be topical irritation from maceration. Admission Exam Per Admitting Provider General: AAOx3, pleasant and cooperative. No respiratory distress. Limbs well perfused. Abdomen soft and nontender. Bilateral lower extremities were splinted without skin compromise. 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 Discharge Exam BLE: Bilateral residual limbs are dressed with Aquacel over the primary incision sites and a freshly applied Allevyn dressing at the drain sites that were discontinued. She has a light compressive stockinette in place. More c ompressive Tubigrip stockings are in her possession for transfer. Constitutional well developed and well nourished; no acute distress and not intoxicated appearing ENMT external ear and nose normal, oropharynx normal Respiratory normal respiratory effort; no respiratory distress Cardiovascular Extremities: normal capillary refill; no edema Skin no rashes, warm and dry Psychiatric A+Ox3, euthymic affect Discharge Data Allergies Allergy/AdvReac Type Severity Reaction Status Date / Time adhesive tape Allergy Mild SKIN Verified 09/16/19 07:38 IRRITATION No Known Drug Allergies Allergy Unknown NKDA Verified 09/11/19 10:19 Consultations 09/16/19 13:59 Consult Case Management - Discharge Planning Routine 09/17/19 20:13 Consult Case Management - Discharge Planning Routine Consult Case Management - Discharge Planning Routine Procedures Performed Operation Date: 09/17/19 11:55 Actual Procedures p Bilateral Transfemoral Leg Amputations(Bilateral) - Filiberto Jacques Ordered Studies 09/17/19 13:02 US - OR guided needle placemen Routine Laboratory Tests 09/20/19 05:58 Hgb 10.1 L D Hct 31.1 L Plt Count 253 Hospital Course (1) Bilateral femoral fractures: Treated with elective transfemoral amputation. She was admitted on the day before surgery to ensure discontinuation of Xarelto and DVT prophylaxis with parenteral heparin. Surgery was performed on 09/17/2019 and was without complication. She had expected blood and fluid loss. She was managed postoperatively for pain, blood loss and wound/residual limb care. She worked with PT/OT for mobilization. Transfusion was required due to expected postsurgical blood loss that became symptomatic and limited her ability to mobilize. Pain management was transitioned to an oral regimen with addition of a neuropathic agent. Drains were discontinued on postoperative day #3. On postoperative day 3 she was found to be making acceptable progress for transition to the next level of care. (2) Hypertension: remains on atenolol (3) Paraplegia, unspecified: Remains determined to restore her independence. Amputations were performed for pain management after distal femoral osteoporotic fracture, and I expect her to be able to work with inpatient rehabilitation towards regaining independent transfers (4) DVT prophylaxis: With her family history of factor V Leiden and transfemoral amputation residual limbs, recommend continuing prophylacitc xarelto for 6 weeks postoperatively. (5) Acute blood loss anemia: Secondary long bone fractures with incomplete recovery prior to transfemoral amputations. Responded well to transfusion of 2 units postop from her transfusions. Resolving. Total Time Total Time Spent Total Time Spent (In Minutes): 30 Total Time Includes: Examination of the Patient, Discharge Planning, Medication Reconciliation and Other Discharge Plan Discharge Items Patient Disposition: Transfer Inpatient Rehab Fac Reason For Visit: NEEDS SUB-Q HEPARIN 24HRS BEFORE SURGERY Discharge Diagnosis: Bilateral distal femur fracture status post transfemoral amputations Post-polio Paraplegia Condition on Discharge: Good Activity: Per Instructions section Bathing: Keep incision dry Non-emergency contact: Surgeon Call non-emergency contact if: your pain is not controlled and your temperature is above 101 Follow-up/Referrals: Filiberto Hanna [Surgeon] - Isauro Olivarez MD [Primary Care Provider] - Diet: Regular Addtl Attending Provider Instructions: Wound management: Leave the Aquacel dressing in place until 09/23, unless becomes saturated or otherwise disturbed. Can change to regular dressings that are available at her facility. Vidalia remain in place until she follows up in our clinic for a wound check. The drain sites may need dressing change as needed for 1 to 2 weeks for persistent drainage. Keep the incisions and drain sites clean and dry until follow-up. Residual limb: Lilliam will be nonweightbearing is no labs and should avoid the usual residual limb treatments for prosthetic use. She has minimal hip flexor, quadricep, hamstring, abductor, and gluteal muscle activity, so the myodesis will need little protection. Protect the wound with light compression, using stump shrinkers/stockinettes available to the facility. Light compressive wraps/shrinkers will be preferred to lightly compress the residual limb and avoid any fluid excessive collection. She can weight-bear as tolerated through her buttock and avoid any weightbearing on the end of the residual limbs for at least 6 weeks. Sykes management: The Sykes catheter should removed as soon as possible, dictated by when she can comfortably transfer onto a bedpan. Return to Orthopedic Clinic around 2-3 weeks after surgery for wound check and staple removal. Pending Studies at Discharge: No Stand-Alone Forms: My [facility] Skilled Items Patient informed of condition?: Yes DNR: No Discharge Level of Care: Acute rehab Communicable Disease: No Discharge Prognosis: Improving Lines: None Urinary Catheter: Yes Medications and DC Order Prescriptions: New sennosides-docusate sodium [Senokot-S] 8.6-50 mg Tablet 2 tab PO HS Qty: 60 RF: 0 acetaminophen 500 mg Tablet 1,000 mg PO Q8H PRN (Reason: pain) 30 Days Qty: 90 RF: 0 gabapentin 100 mg Capsule 100 mg PO TID 30 Days Qty: 90 RF: 0 oxycodone 5 mg Tablet 5 - 10 mg PO Q4H PRN (Reason: pain) 30 Days Qty: 60 RF: 0 Xarelto 10 mg Tablet 10 mg PO DAILY 40 Days Qty: 40 RF: 0 Non Formulary Item [Non-Formulary Patient's Own Med] 1 ea PO Q2D Qty: 1 RF: 0 Continued minocycline 100 mg capsule 100 mg PO Q2D RF: 0 tramadol 50 mg tablet 50 mg PO DAILY RF: 0 atenolol 50 mg tablet 50 mg PO DAILY RF: 0 Discontinued Flintstones Complete (iron) Tablet,Chewable 1 tab PO QAM Qty: 30 RF: 0 oxycodone 5 mg Tablet 15 mg PO Q6H PRN (Reason: pain) Qty: 60 RF: 0 Xarelto 10 mg Tablet 10 mg PO QDD Qty: 30 RF: 1 acetaminophen 325 mg Tablet 650 mg PO Q4H PRN (Reason: Pain) RF: 0 hydrocodone-acetaminophen [Hearne] 10-325 mg Tablet 1 tab PO Q4H PRN (Reason: Pain) RF: 0 No Action omeprazole 20 mg Capsule,Delayed Release(Dr/Ec) 20 mg PO DAILY Qty: 30 RF: 0 Krames/Other Patient Handouts: Amputation Phantom Sensation Pain, Amputation Surgery Manage Pain Admission Data Admit Date/Time: 09/16/19 11:11 Attending Provider: Filiberto Hanna Admit Provider: Filiberto Hanna Primary Care Provider: Isauro Olivarez Other Providers: [facility] Coding Level of Care Code D/C Day Management <30 mins Diagnoses Bilateral femoral fractures S72.91XA; S72.92XA Encounter type: initial encounter Fracture type: closed Hypertension I10 Hypertension type: unspecified Paraplegia, unspecified G82.20 DVT prophylaxis Z29.9 Acute blood loss anemia D62
[2019-09-20] MEDS ORDERED: GABAPENTIN 100 MG CAP PO SCH (14:00)
== END 2019-09-20 15:30 | DRG 475 ==
LOC: 3N 11:11

== ENCOUNTER 2022-07-04 14:46 | Inpatient (IN) ==
[2022-07-04 16:23] LABS: Basophils # (auto) 0.05 K/uL (0-0.2); Basophils % (auto) 0.8 %; Eosinophils # (auto) 0.07 K/uL (0-0.50); Eosinophils % (auto) 1.2 %; Hematocrit (blood only) 35.3 % (37.0-47.0); Hemoglobin 11.8 g/dl (12.0-16.0); Immature Granulocytes # (auto) 0.03 K/uL (0.01-0.20); Immature Granulocytes % (auto) 0.5 %; Lymphocytes # (auto) 0.82 K/uL (1.2-3.4); Lymphocytes % (auto) 13.6 %; Mean Corpuscular Hemoglobin 28.3 pg (25.0-34.0); Mean Corpuscular Hgb Conc 33.4 g/dL (32.0-36.0); Mean Corpuscular Volume 84.7 fL (80.0-100.0); Mean Platelet Volume 9.1 fL (9.4-12.4); Monocytes # (auto) 0.44 K/uL (0.11-0.59); Monocytes % (auto) 7.3 %; Neutrophils # (auto) 4.64 K/uL (1.40-6.50); Neutrophils % (auto) 76.6 %; Platelet Count 183 K/uL (130-400); RDW Standard Deviation 46.2 fL (36.4-46.3); Red Blood Count 4.17 M/uL (4.20-5.40); White Blood Count 6.05 K/ul (4.8-10.8)
[2022-07-04 16:39] LABS: Alanine Aminotransferase 8 U/L (7-52); Albumin Globulin Ratio 1.2 (0.9-2); Albumin Level 3.8 gm/dl (3.4-5.0); Alkaline Phosphatase 94 U/L (34-104); Anion Gap 7 (3-11); Aspartate Aminotransferase 13 U/L (13-39); BUN Creatinine Ratio 44.4 (10-20); Bilirubin,Total 0.4 mg/dl (0.2-1.0); Blood Urea Nitrogen 20 mg/dl (6-23); Calcium 9.6 mg/dl (8.6-10.3); Carbon Dioxide 26 mmol/L (21-32); Chloride 105 mmol/L (98-107); Est GFR (African American) 113.6 ml/min; Globulin 3.3 gm/dl (2.5-4.0); Glucose 106 mg/dl (70-99(Fasting)); Lipase 9 U/L (11-82); Potassium 3.8 mmol/L (3.5-5.1); Sodium 138 mmol/L (136-145); Total Protein 7.1 gm/dl (6.0-8.3)
[2022-07-04] MEDS ORDERED: ACETAMINOPHEN 1,000 MG/100 ML VIAL IV STA (16:40)
[2022-07-04] MEDS ORDERED: SODIUM CHLORIDE 0.9% 500 ML IV ONE (16:40)
[2022-07-04] MEDS ORDERED: OPTIRAY 350 100ml IV ONE (17:09)
[2022-07-04 17:17] LABS: Appearance Urine Clear (Clear); Bilirubin Urine Negative (Negative); Blood Urine Negative (Negative); Color Urine Yellow; Glucose Urine UA Negative (Negative); Ketones Urine Negative (Negative); Leukocyte Esterase Urine Negative (Negative); Nitrite Urine Negative (Negative); Protein Urine Negative (Negative); Urobilinogen Urine Negative (Negative); pH Urine 6.5 (4.5-7.5)
--- NOTE | 2022-07-04 18:05 | CT Scan Report ---
CT OF THE ABDOMEN AND PELVIS WITH CONTRAST CLINICAL HISTORY: uti, lower abd/back pain COMPARISON STUDY: CT of the abdomen and pelvis June 14, 2021. TECHNIQUE: Following IV administration of 86 mL of Optiray, axial images of the abdomen and pelvis we re obtained from the lung bases to the proximal femurs. Images were reviewed in the axial, sagittal, and coronal planes. IV contrast was administered without complication. Automated exposure control wa s utilized for the study. A dose lowering technique was utilized adhering to the principles of ALARA . CT DOSE: 336.04 mGy.cm FINDINGS: A moderate sized hiatal hernia is noted. There is no pneumatosis, free air or portal venous gas. Is no biliary ductal dilatation status post cholecystectomy. Liver, spleen, adrenal glands, kid neys and pancreas are normal. No hydronephrosis. Muscular atrophy within the pelvis and hips is incid entally noted. There is colonic diverticulosis. There is no evidence for acute diverticulitis. The ap pendix is normal. Note is made of sigmoid diverticulosis. There is wall thickening of the proximal si gmoid colon. There is an adjacent 2.6 x 1.7 cm fluid collection on axial image 292 of 386. This favor s a small abscess, likely diverticular. There is a possible fistula to the vaginal cuff. Bladder wall thickening is also noted. There is no gas within the bladder. However, a colovesicular fistula be di fficult to exclude. There has also been interval development of a 4.3 cm cystic left adnexal lesion. The medial wall of this lesion is thick walled. There is adjacent stranding. There is gas within the vagina. No acute fractures are present. Submucosal fat deposition within multiple bowel loops is note d. This is not acute. IMPRESSION: 1. Findings suggestive of acute to subacute sigmoid diverticulitis. 2.6 x 1.2 cm rim-enhancing fluid collection adjacent to the sigmoid colon suggestive of a diverticular abscess with possible underlyin g fistula to the vaginal cuff. An additional colovesicular fistula would be difficult to exclude give n bladder wall thickening with mild adjacent stranding however no gas within the bladder. 2. New 4.3 cm cystic thick walled left adnexal lesion adjacent to the diverticular abscess and the si gmoid colon. This may be infectious in etiology and an additional abscess would be difficult to exclu de although only minimal adjacent stranding. A neoplastic etiology could appear similar but is consid ered less likely however imaging follow-up to ensure resolution is recommended. This is most likely r elated to sigmoid diverticulitis. 3. No bowel obstruction. Normal appendix. ACT 112: Negative or not required by law. Electronically signed by: Bello Pace M.D. 07/04/2022 6:04 PM
[2022-07-04] MEDS ORDERED: PIPERACILLIN/TAZOBACTAM 4.5 GM/120 ML BAG IV ONE (18:11)
--- NOTE | 2022-07-04 19:43 | History & Physical Report ---
Date of Service July 04, 2022 Assessment & Plan (1) Acute diverticulitis: Plan: 77yo female with history of HTN, GERD presenting with acute complicated diverticulitis with 2.6 x 1.2 cm abscess, possible communication with the vaginal cuff. Patient is afebrile, HD stable, non-toxic in appearance. Her abdomen is largely non-tender at this time, no rebound/guarding/peritonitis. Given patients reported history of brown discharge suspect fistula formation. Doubt communication with bladder - UA is unremarkable, no gas in bladder. Case was discussed with General Surgery by ER staff -Admit to medical -Continue Zosyn for now -Zofran as needed for nausea -Morphine as needed for pain -General Surgery consultation appreciated -Will consult Gynecology for further assessment of possible fistulization (2) Hypertension: Plan: Hypertensive urgency based on blood pressure of 229/87. Patient with poorly controlled hypertension. Blood pressure today 229/87. She reports her blood pressure at home is always over 180mmHg. She denies headache, dizziness, visual disturbances, chest pain, SOB or focal neurological deficits. Her Telmisartan was recently increased. She reports that her blood pressure became very difficult to control following a Covid-19 infection in 2019. -Continue Telmisartan 80mg po daily -Continue Atenolol 50mg po daily -Hydralazine 10mg po q 6 hours as needed for blood pressure >180mmHg -Closely monitor for symptoms which may be associated with uncontrolled hypertension, monitor for end-organ dysfunction. Cautiously lower blood pressure with oral agents. -Pain control (3) GERD (gastroesophageal reflux disease): Plan: Chronic. Stable -Protonix 40mg po daily while admitted F/E/N - Heplock. Electrolytes WNL, check Mg, Low Na diet as tolerated, Miralax as needed Ppx - Low risk for DVT Code - DNR/DNI per discussion with patient Dipso - Admit to medical History of Present Illness Chief Complaint: Abdominal pain Primary Care Provider: DO Yani Ruiz Ivory is a 77-year-old female presenting wt abdominal pain. Patient has a history of poorly controlled hypertension, GERD, diverticulosis. She has a history of childhood polio and is non-ambulatory. She had bilateral above knee amputations performed in August 2019 follow bilateral traumatic femur fractures. Patient reports that approximately 1-1/2 months ago she began having blood in her urine. She was seen by her PCP and was started on a course of Macrobid for presumed urinary tract infection. She completed a 5-day course of antibiotics which cleared her hematuria. Shortly after she began having brown discharge in her underpants and increased urinary incontinence. She is uncertain if the discharge is coming from her urine or her vagina. She also began having crampy left-sided abdominal pain. She was treated with another 5-day course of Macrobid without significant improvement. This course of Macrobid completed on 07/01/2022. On 07/02/2022 patient began having worsening left lower quadrant abdominal pain - crampy in nature. On 07/03/2022 she began having worsening brown discharge. She contacted her PCP with these complaints and was instructed to come to the ER. In the ER patient is afebrile, markedly hypertensive with blood pressure 229/87. No respiratory distress, adequate oxygenation on room air. Patient denies fever, chills, chest pain, cough, shortness of breath. Denies nausea, vomiting, diarrhea or constipation. She notes normal appetite and normal bowel movements. Patient had a colonoscopy performed on 07/07/2021 which revealed diverticulosis and few erosions in the transverse colon which were biopsied and found to be benign. ER Course: Zosyn Tylenol Allergies Allergy/AdvReac Type Severity Reaction Status Date / Time adhesive tape Allergy Mild SKIN Verified 07/04/22 13:58 IRRITATION No Known Drug Allergies Allergy Unknown NKDA Verified 07/04/22 13:58 Home Medications Medication Instructions Recorded Confirmed Type atenolol 50 mg tablet 50 mg PO QAM 08/31/19 07/04/22 History dorzolamide 22.3 mg-timolol 6.8 1 drp OPB QAM 06/01/21 07/04/22 History mg/mL eye drops omeprazole 20 mg capsule,delayed 20 mg PO QAM 07/03/21 07/04/22 History release telmisartan 80 mg tablet 80 mg PO DAILY #30 tabs 06/26/22 07/04/22 Rx tramadol 50 mg tablet 50 - 100 mg PO BID PRN pain #120 07/04/22 07/04/22 Rx tabs Past Med/Surg History Medical History (Updated 07/04/22 @ 20:11 by Jasmine Toth DO) Acne rosacea Amputation leg, bilat 09/2019 after b/l femoral fractures Bilateral femoral fractures GERD (gastroesophageal reflux disease) History of COVID-19 diagnosed 05/29/21--headache, sore throat, cough and congestion, then had blood in urine--states she currently has no symptoms History of recent blood transfusion (~06/28/21) Morbid obesity with BMI of 45.0-49.9, adult Osteoarthritis Polio Diagnosed in the 1950s. Ambulatory with bracing until 2010, when shoulder pain restricted her to the motorized wheelchair. Surgical History H/O bilateral breast reduction surgery History of above-knee amputation of both lower extremities (~09/17/19) @ [facility] Dr. Hanna History of bilateral cataract extraction History of carpal tunnel release LEFT History of colonoscopy (~06/2021) Negative, no further screening recommended History of esophagogastroduodenoscopy (EGD) (~06/2021) Negative History of hysterectomy History of surgery CALCIUM DEPOSITS REMOVED 1956 Hx of cholecystectomy Family History Mother Factor V Leiden Breast cancer Myocardial infarction Hypertension Family/Other Factor V Leiden nephew Father Myocardial infarction Stroke Other Cancer No family history of adverse response to anesthesia Denies family history of Ovarian cancer Prostate cancer Diabetes Lung cancer Colorectal cancer Lung disease Social History Smoking Status: Never smoker Second Hand Exposure: No; Hx Alcohol Use: Yes Alcohol type: wine and hard liquor Alcohol Intake Frequency: 4 or More x per/Week Hx Substance Use: No Preferred Language: [place]an Communication Ability: Effective Visual Impairment: No Limitations Hearing Ability: Normal Aircraft Communicator Required: No Beliefs That Will Affect Care: None marital status: Single Current Living Situation: Alone current occupational status: retired How many Children do You have: 0 Feels Safe at Home: Yes Childhood Exposure to Second-Hand Smoke: Yes caffeine: Yes Dental Care, Regularly: Yes Physical Activity Frequency: Does not Exercise Seatbelt Use: always Sunscreen Use: No Assistive Devices: Glasses and Scooter/Electric Scooter Review of Systems Review of Systems: All systems reviewed & are unremarkable except as noted in HPI & below Physical Exam Physical Exam: General: patient resting comfortably, NAD, non-toxic in appearance, AA&O x 4 Skin: warm, dry, intact, no rashes or lesions HEENT: NC/AT, PERRL, EOMI, anicteric sclera, conjunctiva without injection, external ear normal to inspection and nontender, nares patent, moist mucus membranes, dentition intact, no oropharyngeal lesions, neck supple, trachea midline, no LAD, no thyromegaly, no JVD Heart: +S1/S2, regular, no m/r/g Lungs: equal air entry bilaterally, no rales/rhonchi/wheezes Abd: +BS, soft, NT/ND, no masses/organomegaly/ascites Ext: warm, s/p bilateral AKA. Stumps well healed. Neuro: nonfocal, patient AA&O x 4, speech intact, no facial droop, moving all extremities on command with equal strength 5/5 Results & Data Results & Data Vital Signs (Past 12 Hours) Vital Signs Temp Pulse Pulse Resp BP BP Pulse Ox 07/04/22 17:24 77 18 229/87 H 99 07/04/22 14:52 36 C L 74 20 215/89 H 99 O2 Del Method 07/04/22 17:24 Room Air 07/04/22 14:52 Room Air Laboratory Results Laboratory Results WBC 6.05 K/ul (4.8-10.8) 07/04/22 15:50 RBC 4.17 M/uL (4.20-5.40) L 07/04/22 15:50 Hgb 11.8 g/dl (12.0-16.0) L 07/04/22 15:50 Hct 35.3 % (37.0-47.0) L 07/04/22 15:50 MCV 84.7 fL (80.0-100.0) 07/04/22 15:50 MCH 28.3 pg (25.0-34.0) 07/04/22 15:50 MCHC 33.4 g/dL (32.0-36.0) 07/04/22 15:50 RDW Std Deviation 46.2 fL (36.4-46.3) 07/04/22 15:50 RDW Coeff of Niki 15.0 % (11.5-14.5) H 07/04/22 15:50 Plt Count 183 K/uL (130-400) 07/04/22 15:50 MPV 9.1 fL (9.4-12.4) L 07/04/22 15:50 Immature Gran % (Auto) 0.5 % 07/04/22 15:50 Neut % (Auto) 76.6 % 07/04/22 15:50 Lymph % (Auto) 13.6 % 07/04/22 15:50 Wilkinson % (Auto) 7.3 % 07/04/22 15:50 Eos % (Auto) 1.2 % 07/04/22 15:50 Baso % (Auto) 0.8 % 07/04/22 15:50 Neut # (Auto) 4.64 K/uL (1.40-6.50) 07/04/22 15:50 Lymph # (Auto) 0.82 K/uL (1.2-3.4) L 07/04/22 15:50 Wilkinson # (Auto) 0.44 K/uL (0.11-0.59) 07/04/22 15:50 Eos # (Auto) 0.07 K/uL (0-0.50) 07/04/22 15:50 Baso # (Auto) 0.05 K/uL (0-0.2) 07/04/22 15:50 Immature Gran # (Auto) 0.03 K/uL (0.01-0.20) 07/04/22 15:50 Sodium 138 mmol/L (136-145) 07/04/22 15:50 Potassium 3.8 mmol/L (3.5-5.1) 07/04/22 15:50 Chloride 105 mmol/L (98-107) 07/04/22 15:50 Carbon Dioxide 26 mmol/L (21-32) 07/04/22 15:50 Anion Gap 7 (3-11) 07/04/22 15:50 BUN 20 mg/dl (6-23) 07/04/22 15:50 Creatinine 0.45 mg/dl (0.6-1.2) L 07/04/22 15:50 Est Cr Clr Drug Dosing Not Reportable 07/04/22 15:50 Est GFR ( Amer) 113.6 ml/min 07/04/22 15:50 Est GFR (Non-Af Amer) 98.0 ml/min 07/04/22 15:50 BUN/Creatinine Ratio 44.4 (10-20) H 07/04/22 15:50 Glucose 106 mg/dl (70-99(Fasting)) H 07/04/22 15:50 Lactate 0.7 mmol/L (0.4-2.0) 07/04/22 18:48 Calcium 9.6 mg/dl (8.6-10.3) 07/04/22 15:50 Total Bilirubin 0.4 mg/dl (0.2-1.0) 07/04/22 15:50 AST 13 U/L (13-39) 07/04/22 15:50 ALT 8 U/L (7-52) 07/04/22 15:50 Alkaline Phosphatase 94 U/L (34-104) 07/04/22 15:50 Total Protein 7.1 gm/dl (6.0-8.3) 07/04/22 15:50 Albumin 3.8 gm/dl (3.4-5.0) 07/04/22 15:50 Globulin 3.3 gm/dl (2.5-4.0) 07/04/22 15:50 Albumin/Globulin Ratio 1.2 (0.9-2) 07/04/22 15:50 Lipase 9 U/L (11-82) L 07/04/22 15:50 Procalcitonin < 0.05 ng/ml (0-0.5) 07/04/22 18:42 Urine Color Yellow 07/04/22 17:09 Urine Appearance Clear (Clear) 07/04/22 17:09 Urine pH 6.5 (4.5-7.5) 07/04/22 17:09 Ur Specific Blachly 1.020 (1.000-1.030) 07/04/22 17:09 Urine Protein Negative (Negative) 07/04/22 17:09 Urine Glucose (UA) Negative (Negative) 07/04/22 17:09 Urine Ketones Negative (Negative) 07/04/22 17:09 Urine Blood Negative (Negative) 07/04/22 17:09 Urine Nitrite Negative (Negative) 07/04/22 17:09 Urine Bilirubin Negative (Negative) 07/04/22 17:09 Urine Urobilinogen Negative (Negative) 07/04/22 17:09 Ur Leukocyte Esterase Negative (Negative) 07/04/22 17:09 SARS-CoV-2, RNA, NAAT NEGATIVE (NEGATIVE) 07/04/22 17:35 Impressions Abdomen/Pelvis CT 07/04/22 16:40 CT OF THE ABDOMEN AND PELVIS WITH CONTRAST CLINICAL HISTORY: uti, lower abd/back pain COMPARISON STUDY: CT of the abdomen and pelvis June 14, 2021. TECHNIQUE: Following IV administration of 86 mL of Optiray, axial images of the abdomen and pelvis were obtained from the lung bases to the proximal femurs. Images were reviewed in the axial, sagittal, and coronal planes. IV contrast was administered without complication. Automated exposure control was utilized for the study. A dose lowering technique was utilized adhering to the principles of ALARA. CT DOSE: 336.04 mGy.cm FINDINGS: A moderate sized hiatal hernia is noted. There is no pneumatosis, free air or portal venous gas. Is no biliary ductal dilatation status post cholecystectomy. Liver, spleen, adrenal glands, kidneys and pancreas are normal. No hydronephrosis. Muscular atrophy within the pelvis and hips is incidentally noted. There is colonic diverticulosis. There is no evidence for acute diverticulitis. The appendix is normal. Note is made of sigmoid diverticulosis. There is wall thickening of the proximal sigmoid colon. There is an adjacent 2.6 x 1.7 cm fluid collection on axial image 292 of 386. This favors a small abscess, likely diverticular. There is a possible fistula to the vaginal cuff. Bladder wall thickening is also noted. There is no gas within the bladder. However, a colovesicular fistula be difficult to exclude. There has also been interval development of a 4.3 cm cystic left adnexal lesion. The medial wall of this lesion is thick walled. There is adjacent stranding. There is gas within the vagina. No acute fractures are present. Submucosal fat deposition within multiple bowel loops is noted. This is not acute. IMPRESSION: 1. Findings suggestive of acute to subacute sigmoid diverticulitis. 2.6 x 1.2 cm rim-enhancing fluid collection adjacent to the sigmoid colon suggestive of a diverticular abscess with possible underlying fistula to the vaginal cuff. An additional colovesicular fistula would be difficult to exclude given bladder wall thickening with mild adjacent stranding however no gas within the bladder. 2. New 4.3 cm cystic thick walled left adnexal lesion adjacent to the diverticular abscess and the sigmoid colon. This may be infectious in etiology and an additional abscess would be difficult to exclude although only minimal adjacent stranding. A neoplastic etiology could appear similar but is considered less likely however imaging follow-up to ensure resolution is recommended. This is most likely related to sigmoid diverticulitis. 3. No bowel obstruction. Normal appendix. ACT 112: Negative or not required by law. Electronically signed by: Bello Pace M.D. 07/04/2022 6:04 PM PG Care Time/CCT Total # of Minutes Spent Total Time Spent with Patient: Total time spent is greater than 50% in coordination of care (as documented) at patient's floor/unit and/or counseling patient: Coding Level of Care Code 38765 INT INP/OBS CARE 2/55MIN Diagnoses Acute diverticulitis K57.92 Hypertension I10 Hypertension type: unspecified GERD (gastroesophageal reflux disease) K21.9 (2) Hypertension Hypertension type: unspecified Qualified Code(s): I10 - Essential (primary) hypertension
[2022-07-04] MEDS ORDERED: MoRPHine SULFATE 4 MG/ML 1 ML CARP\\VIAL IV PRN (21:44)
[2022-07-04] MEDS ORDERED: traMADol HCL 50 MG TABLET PO PRN (21:44)
[2022-07-04] MEDS ORDERED: POLYETHYLENE (MIRALAX) 17 GM PACK PO PRN (21:44)
[2022-07-04] MEDS ORDERED: ACETAMINOPHEN 325 MG TAB PO PRN (21:44)
[2022-07-04] MEDS ORDERED: MoRPHine SULFATE 2 MG/ML CARP IV PRN (21:44)
[2022-07-04] MEDS ORDERED: ONDANSETRON INJ 2 MG/ML 2 ML VIAL IV PRN (21:44)
--- NOTE | 2022-07-04 22:36 | Emergency Department Note ---
Impression & Plan Diverticulitis large intestine, Lower abdominal pain, Hypomagnesemia ED Provider Note NAME: JANN COSME AGE: 77 SEX: F ARRIVES VIA: Walk-In INFORMANT: Patient ED PROVIDER(S): Tirso Longoria MD CHIEF COMPLAINT: lower abdominal pain PLAN: Disposition: Admit MEDICAL DECISION MAKING: The patient is a pleasant 77-year-old woman with a past medical history of p oliomyelitis remotely, history of bilateral AKA, GERD, hypertension who presents to the emergency department for evaluation of concern for persistent urinary tract infection after being treated twice for a urinary tract infection without improvement were now she reports dark discharge. She reports lower abdominal and lower back pain. Denies any fevers, cough congestion, nausea, vomiting or diarrhea. On arrival the patient is no acute distress, afebrile with blood pressure 200/90s in the setting of the discomfort and vital signs otherwise stable. She appears clinically dry. Abdomen is nontender. Pelvic exam with female RN assisting demonstrates mild white-jaime vaginal discharge, sent for culture. WBC and platelets within normal limits. H/H similar to prior values. Chemistry without metabolic acidosis. Electrolytes LFTs without significant abnormality. Lipase within normal limits. Procalcitonin is not elevated. UA without evidence of infection. COVID-19 RNA, COLE test was negative. CT of the and pelvis was performed and demonstrates complicated diverticulitis with adjacent 2 cm abscess and suspicion for fistulous track to the vaginal cuff and and note that if vesicular fistula cannot be excluded. Additional left adnexal cystic lesion also noted. Blood cultures were drawn and IV Zosyn ordered. I did review findings with the patient and she did agree with plan for admission for further management. Case was additionally discussed with Dr. Rosen, general surgery on-call who agrees with plan for admission to medicine service for IV antibiotics, NPO and they will evaluate the patient in the morning. Case was discussed with Dr. Toth, [facility] hospitalist who will evaluate the patient for admission. Triage Nursing notes reviewed and agree them. Prior/outside medical records reviewed Vital Signs: reviewed Differential diagnosis: Gastroenteritis, food borne illness, infections, appendicitis, diverticulitis, inflammatory bowel disease, obstruction, GI bleed, biliary pathology, volvulus, as well as other pathologies. ER treatment provided: See below. Diagnostics interpreted by me: Cardiac Monitoring: An order for continuous cardiac monitoring was placed and demonstrated normal sinus rhythm, 66 bpm, no ectopy. Laboratory studies: See below Imaging studies: See below Consultation(s): Dr. Rosen, general surgery on-call Dr. Toth, [facility] hospitalist. HPI: The patient is a pleasant 77-year-old woman with a past medical history of poliomyelitis remotely, history of bilateral AKA, GERD, hypertension who presents to the emergency department for evaluation of concern for persistent urinary tract infection after being treated twice for a urinary tract infection without improvement were now she reports dark discharge. She reports lower abdominal and lower back pain. Denies any fevers, cough congestion, nausea, vomiting or diarrhea. ROS: See above HPI for pertinent positives & negatives. A total of 10 systems reviewed and were otherwise negative. VITALS:See Below PHYSICAL EXAMINATION: GENERAL: Awake, alert, well-appearing, in no distress HENT: Normocephalic, atraumatic. Oropharynx with dry mucous membranes and ot herwise unremarkable. EYES: Normal conjunctiva. Sclera non-icteric. NECK: Supple. No nuchal rigidity. FROM. No JVD. RESPIRATORY: Clear to auscultation. CARDIAC: Regular rate, normal rhythm. Extremities warm and well perfused. Pulses equal. ABDOMEN: Soft, non-distended. No tenderness to palpation. No rebound or guarding. No masses. : Pelvic exam with female RN assisting, demonstrates mild white-jaime vaginal discharge, sent for culture. MUSCULOSKELETAL: Chest examination reveals no tenderness. The back is symmetrical on inspection without obvious abnormality. There is no CVA tenderness to palpation. No joint edema. LOWER EXTREMITIES: Bilateral AKA. NEURO: Normal sensorium. No sensory or motor deficits noted. SKIN: No rash or jaundice noted. Tirso Longoria MD Past Med/Surg History Medical History (Updated 07/05/22 @ 01:30 by Tirso Longoria MD) Acne rosacea Amputation leg, bilat 09/2019 after b/l femoral fractures Bilateral femoral fractures GERD (gastroesophageal reflux disease) History of COVID-19 diagnosed 05/29/21--headache, sore throat, cough and congestion, then had blood in urine--states she currently has no symptoms History of recent blood transfusion (~06/28/21) Morbid obesity with BMI of 45.0-49.9, adult Osteoarthritis Polio Diagnosed in the 1950s. Ambulatory with bracing until 2010, when shoulder pain restricted her to the motorized wheelchair. Surgical History H/O bilateral breast reduction surgery History of above-knee amputation of both lower extremities (~09/17/19) @ [facility] Dr. Hanna History of bilateral cataract extraction History of carpal tunnel release LEFT History of colonoscopy (~06/2021) Negative, no further screening recommended History of esophagogastroduodenoscopy (EGD) (~06/2021) Negative History of hysterectomy History of surgery CALCIUM DEPOSITS REMOVED 1956 Hx of cholecystectomy Family History Mother Factor V Leiden Breast cancer Myocardial infarction Hypertension Family/Other Factor V Leiden nephew Father Myocardial infarction Stroke Other Cancer No family history of adverse response to anesthesia Denies family history of Ovarian cancer Prostate cancer Diabetes Lung cancer Colorectal cancer Lung disease Social History Smoking Status: Never smoker Second Hand Exposure: Yes (when she was younger); Hx Alcohol Use: Yes Alcohol type: wine and hard liquor Alcohol Intake Frequency: 4 or More x per/Week Hx Substance Use: No Preferred Language: [place] Communication Ability: Effective Visual Impairment: No Limitations Hearing Ability: Normal 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: No Beliefs That Will Affect Care: None marital status: Single Current Living Situation: Alone current occupational status: retired How many Children do You have: 0 Feels Safe at Home: Yes Childhood Exposure to Second-Hand Smoke: Yes caffeine: Yes Dental Care, Regularly: Yes Physical Activity Frequency: Does not Exercise Seatbelt Use: always Sunscreen Use: No Assistive Devices: Glasses, Raised Toilet Seat, Scooter/Electric Scooter and Wheelchair Allergies Allergies Allergy/AdvReac Type Severity Reaction Status Date / Time adhesive tape Allergy Mild SKIN Verified 07/04/22 13:58 IRRITATION No Known Drug Allergies Allergy Unknown NKDA Verified 07/04/22 13:58 Home Meds Home Medications Medication Instructions Recorded Confirmed atenolol 50 mg tablet 50 mg PO QAM 08/31/19 07/04/22 dorzolamide 22.3 mg-timolol 6.8 1 drp OPB QAM 06/01/21 07/04/22 mg/mL eye drops omeprazole 20 mg capsule,delayed 20 mg PO QAM 07/03/21 07/04/22 release Previous Rx's Medication Instructions Recorded telmisartan 80 mg tablet 80 mg PO DAILY #30 tabs 06/26/22 tramadol 50 mg tablet 50 - 100 mg PO BID PRN pain #120 07/04/22 tabs Results & Data (ED) Vital Signs Vital Signs - 24 hr 07/04/22 14:52 07/04/22 17:24 Temperature 36 C L Temperature Source Temporal Artery Scan Pulse Rate 74 Pulse Rate [Right Finger] 77 Respiratory Rate 20 18 Respiratory Effort / Characteristics Non-Labored Spontaneous Non-Labored Spontaneous Respiratory Depth Normal Normal Respiratory Pattern Regular Regular Blood Pressure 215/89 H Blood Pressure [Left Arm] 229/87 H Blood Pressure Mean 131 Blood Pressure Mean [Left Arm] 134 Blood Pressure Position [Left Arm] Lying Pulse Oximetry 99 99 Oxygen Delivery Method Room Air Room Air Sepsis Recent Fever Within 48 Hours No Sepsis New/Unexplained Change in Mental Status No Sepsis Action Taken by Nursing No Action Required Laboratory Data Attestation: I reviewed the patient's lab results. 07/04/22 15:50 07/04/22 15:50 Lab Results 07/04/22 07/04/22 07/04/22 Range/Units 15:50 15:50 17:09 WBC 6.05 (4.8-10.8) K/ul RBC 4.17 L (4.20-5.40) M/uL Hgb 11.8 L (12.0-16.0) g/dl Hct 35.3 L (37.0-47.0) % MCV 84.7 (80.0-100.0) fL MCH 28.3 (25.0-34.0) pg MCHC 33.4 (32.0-36.0) g/dL RDW Std Deviation 46.2 (36.4-46.3) fL RDW Coeff of Niki 15.0 H (11.5-14.5) % Plt Count 183 (130-400) K/uL MPV 9.1 L (9.4-12.4) fL Immature Gran % (Auto) 0.5 % Neut % (Auto) 76.6 % Lymph % (Auto) 13.6 % [place] % (Auto) 7.3 % Eos % (Auto) 1.2 % Baso % (Auto) 0.8 % Neut # (Auto) 4.64 (1.40-6.50) K/uL Lymph # (Auto) 0.82 L (1.2-3.4) K/uL [place] # (Auto) 0.44 (0.11-0.59) K/uL Eos # (Auto) 0.07 (0-0.50) K/uL Baso # (Auto) 0.05 (0-0.2) K/uL Immature Gran # (Auto) 0.03 (0.01-0.20) K/uL Sodium 138 (136-145) mmol/L Potassium 3.8 (3.5-5.1) mmol/L Chloride 105 (98-107) mmol/L Carbon Dioxide 26 (21-32) mmol/L Anion Gap 7 (3-11) BUN 20 (6-23) mg/dl Creatinine 0.45 L (0.6-1.2) mg/dl Est Cr Clr Drug Dosing Not Reportable Est GFR ( Amer) 113.6 ml/min Est GFR (Non-Af Amer) 98.0 ml/min BUN/Creatinine Ratio 44.4 H (10-20) Glucose 106 H (70-99(Fasting)) mg/dl Lactate (0.4-2.0) mmol/L Calcium 9.6 (8.6-10.3) mg/dl Magnesium 1.5 L (1.7-2.4) mg/dl Total Bilirubin 0.4 (0.2-1.0) mg/dl AST 13 (13-39) U/L ALT 8 (7-52) U/L Alkaline Phosphatase 94 (34-104) U/L Total Protein 7.1 (6.0-8.3) gm/dl Albumin 3.8 (3.4-5.0) gm/dl Globulin 3.3 (2.5-4.0) gm/dl Albumin/Globulin Ratio 1.2 (0.9-2) Lipase 9 L (11-82) U/L Procalcitonin (0-0.5) ng/ml Urine Color Yellow Urine Appearance Clear (Clear) Urine pH 6.5 (4.5-7.5) Ur Specific [place] 1.020 (1.000-1.030) Urine Protein Negative (Negative) Urine Glucose (UA) Negative (Negative) Urine Ketones Negative (Negative) Urine Blood Negative (Negative) Urine Nitrite Negative (Negative) Urine Bilirubin Negative (Negative) Urine Urobilinogen Negative (Negative) Ur Leukocyte Esterase Negative (Negative) SARS-CoV-2, RNA, NAAT (NEGATIVE) 07/04/22 07/04/22 07/04/22 Range/Units 17:35 18:42 18:48 WBC (4.8-10.8) K/ul RBC (4.20-5.40) M/uL Hgb (12.0-16.0) g/dl Hct (37.0-47.0) % MCV (80.0-100.0) fL MCH (25.0-34.0) pg MCHC (32.0-36.0) g/dL RDW Std Deviation (36.4-46.3) fL RDW Coeff of Niki (11.5-14.5) % Plt Count (130-400) K/uL MPV (9.4-12.4) fL Immature Gran % (Auto) % Neut % (Auto) % Lymph % (Auto) % [place] % (Auto) % Eos % (Auto) % Baso % (Auto) % Neut # (Auto) (1.40-6.50) K/uL Lymph # (Auto) (1.2-3.4) K/uL [place] # (Auto) (0.11-0.59) K/uL Eos # (Auto) (0-0.50) K/uL Baso # (Auto) (0-0.2) K/uL Immature Gran # (Auto) (0.01-0.20) K/uL Sodium (136-145) mmol/L Potassium (3.5-5.1) mmol/L Chloride (98-107) mmol/L Carbon Dioxide (21-32) mmol/L Anion Gap (3-11) BUN (6-23) mg/dl Creatinine (0.6-1.2) mg/dl Est Cr Clr Drug Dosing Est GFR ( Amer) ml/min Est GFR (Non-Af Amer) ml/min BUN/Creatinine Ratio (10-20) Glucose (70-99(Fasting)) mg/dl Lactate 0.7 (0.4-2.0) mmol/L Calcium (8.6-10.3) mg/dl Magnesium (1.7-2.4) mg/dl Total Bilirubin (0.2-1.0) mg/dl AST (13-39) U/L ALT (7-52) U/L Alkaline Phosphatase (34-104) U/L Total Protein (6.0-8.3) gm/dl Albumin (3.4-5.0) gm/dl Globulin (2.5-4.0) gm/dl Albumin/Globulin Ratio (0.9-2) Lipase (11-82) U/L Procalcitonin < 0.05 (0-0.5) ng/ml Urine Color Urine Appearance (Clear) Urine pH (4.5-7.5) Ur Specific [place] (1.000-1.030) Urine Protein (Negative) Urine Glucose (UA) (Negative) Urine Ketones (Negative) Urine Blood (Negative) Urine Nitrite (Negative) Urine Bilirubin (Negative) Urine Urobilinogen (Negative) Ur Leukocyte Esterase (Negative) SARS-CoV-2, RNA, NAAT NEGATIVE (NEGATIVE) Administered Medications Hydralazine HCl (Hydralazine 10 Mg Tab) 10 mg PO Q6H PRN PRN Reason: hypertension Stop: 08/03/22 21:43 Last Admin: 07/04/22 23:26 Dose: 10 mg Documented By: MILENA Miscellaneous (Patient's Height &/Or Weight Needed) 1 each N/A Q2H [facility] Stop: 08/03/22 21:59 Last Admin: 07/04/22 23:26 Dose: Not Given Documented By: Admin: 07/04/22 23:05 Dose: 1 each Documented By: MILENA Discontinued Medications Sodium Chloride (Nss) 500 mls @ 999 mls/hr IV .Q31M ONE Stop: 07/04/22 17:10 Last Infusion: 07/04/22 18:07 Dose: 0 mls/hr Documented By: Admin: 07/04/22 17:21 Dose: 999 mls/hr Documented By: RONNY Acetaminophen (Ofirmev) 1,000 mg in 100 mls @ 400 mls/hr IV NOW STA Stop: 07/04/22 16:54 Last Infusion: 07/04/22 17:46 Dose: 0 mls/hr Documented By: Admin: 07/04/22 17:20 Dose: 400 mls/hr Documented By: RONNY Piperacillin Sod/Tazobactam Sod (Zosyn) 4.5 gm in 120 mls @ 240 mls/hr IV NOW ONE Stop: 07/04/22 18:40 Last Infusion: 07/04/22 19:40 Dose: 0 mls/hr Documented By: Admin: 07/04/22 19:05 Dose: 240 mls/hr Documented By: RONNY Ioversol (Optiray 350 100ml) 86 ml IV ONCE ONE Stop: 07/04/22 17:10 Last Admin: 07/04/22 17:09 Dose: 86 ml Documented By: ANTONIO Imaging Data Radiologist's Impression: Abdomen/Pelvis CT 07/04/22 16:40 CT OF THE ABDOMEN AND PELVIS WITH CONTRAST CLINICAL HISTORY: uti, lower abd/back pain COMPARISON STUDY: CT of the abdomen and pelvis June 14, 2021. TECHNIQUE: Following IV administration of 86 mL of Optiray, axial images of the abdomen and pelvis were obtained from the lung bases to the proximal femurs. Images were reviewed in the axial, sagittal, and coronal planes. IV contrast was administered without complication. Automated exposure control was utilized for the study. A dose lowering technique was utilized adhering to the principles of ALARA. CT DOSE: 336.04 mGy.cm FINDINGS: A moderate sized hiatal hernia is noted. There is no pneumatosis, free air or portal venous gas. Is no biliary ductal dilatation status post cholecystectomy. Liver, spleen, adrenal glands, kidneys and pancreas are normal. No hydronephrosis. Muscular atrophy within the pelvis and hips is incidentally noted. There is colonic diverticulosis. There is no evidence for acute diverticulitis. The appendix is normal. Note is made of sigmoid diverticulosis. There is wall thickening of the proximal sigmoid colon. There is an adjacent 2.6 x 1.7 cm fluid collection on axial image 292 of [id number]. This favors a small abscess, likely diverticular. There is a possible fistula to the vaginal cuff. Bladder wall thickening is also noted. There is no gas within the bladder. However, a colovesicular fistula be difficult to exclude. There has also been interval development of a 4.3 cm cystic left adnexal lesion. The medial wall of this lesion is thick walled. There is adjacent stranding. There is gas within the vagina. No acute fractures are present. Submucosal fat deposition within multiple bowel loops is noted. This is not acute. IMPRESSION: 1. Findings suggestive of acute to subacute sigmoid diverticulitis. 2.6 x 1.2 cm rim-enhancing fluid collection adjacent to the sigmoid colon suggestive of a diverticular abscess with possible underlying fistula to the vaginal cuff. An additional colovesicular fistula would be difficult to exclude given bladder wall thickening with mild adjacent stranding however no gas within the bladder. 2. New 4.3 cm cystic thick walled left adnexal lesion adjacent to the diverticular abscess and the sigmoid colon. This may be infectious in etiology and an additional abscess would be difficult to exclude although only minimal adjacent stranding. A neoplastic etiology could appear similar but is considered less likely however imaging follow-up to ensure resolution is recommended. This is most likely related to sigmoid diverticulitis. 3. No bowel obstruction. Normal appendix. ACT 112: Negative or not required by law. Electronically signed by: Bello Pace M.D. 07/04/2022 6:04 PM Discharge Plan Visit Data Chief Complaint: Urinary Symptoms Stated Complaint: REF BY DOC,?UTI,URINE INCONTINENCE,BLOODY D/C ED Provider: Tirso Longoria Discharge Problem: Diverticulitis large intestine, Lower abdominal pain, Hypomagnesemia Patient Disposition: Admitted As Inpatient Discharge Instructions Interventions: ED Discharge Assessment Last Done: 07/04/22 21:27 Diverticulitis large intestine Qualifiers: Diverticulitis bleeding: without bleeding Diverticulitis complication: with abscess Qualified Code(s): K57.20 - Diverticulitis of large intestine with perforation and abscess without bleeding
[2022-07-04 22:47] LABS: Magnesium 1.5 mg/dl (1.7-2.4)
[2022-07-04] MEDS: Patient's HEIGHT &/or WEIGHT Needed SCH ×2 (23:05→23:26)
[2022-07-04] MEDS: hydrALAZINE 10 MG TAB PO PRN (23:26)
[2022-07-05] MEDS ORDERED: Nursing to Pharmacy Communication SCH (02:00)
[2022-07-05] MEDS: Patient's HEIGHT &/or WEIGHT Needed SCH (02:03)
[2022-07-05] MEDS: PIPERACILLIN/TAZOBACTAM 3.375 GM in DEXTROSE 5% 100 ML IV SCH ×3 (02:44→18:33)
[2022-07-05] MEDS: ATENOLOL 50 MG TABLET PO SCH (07:35)
[2022-07-05] MEDS: DORZOLAMIDE/TIMOLOL 22.3/6.8MG/ML 10 ML BTL OPB SCH (07:35)
[2022-07-05] MEDS: LOSARTAN POTASSIUM 50 MG TAB PO SCH (07:35)
[2022-07-05 08:38] LABS: Hematocrit (blood only) 33.7 % (37.0-47.0); Hemoglobin 11.4 g/dl (12.0-16.0); Mean Corpuscular Hemoglobin 27.9 pg (25.0-34.0); Mean Corpuscular Hgb Conc 33.8 g/dL (32.0-36.0); Mean Corpuscular Volume 82.4 fL (80.0-100.0); Mean Platelet Volume 8.8 fL (9.4-12.4); Platelet Count 175 K/uL (130-400); RDW Coefficient of Variation 15.1 % (11.5-14.5); RDW Standard Deviation 45.3 fL (36.4-46.3); Red Blood Count 4.09 M/uL (4.20-5.40); White Blood Count 4.45 K/ul (4.8-10.8)
[2022-07-05 08:51] LABS: BUN Creatinine Ratio 32.4 (10-20); Calcium 9.2 mg/dl (8.6-10.3); Creatinine Clr Calc Pharmacy 89.3 ml/min; Est GFR (African American) 121.2 ml/min; Est GFR (Non-African American) 104.5 ml/min; Potassium 3.4 mmol/L (3.5-5.1)
[2022-07-05] MEDS ORDERED: TELMISARTAN 40 MG TAB PO SCH (09:00)
[2022-07-05] MEDS ORDERED: PANTOprazole 40 MG TAB PO SCH (09:00)
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
--- NOTE | 2022-07-05 11:00 | Communication Note ---
Date of Service: July 05, 2022 I spoke personally with Dr. Burt that is covering this patient. She is a 77yof with multiple medical conditions including hypertension, GERD , diverticu lar disease. she presents with what appears to be a diverticular abscess with ? connection to the vaginal cuff. Patient has had a hyster in the past. Additionally on CT scan there is a 4.3cm cystic lesion of the left adnexa that may be another abscess or perhaps another process. WE are a general gynecology service and do not provide care for fistula, if she indeed has one. Typically in our practice, this would be referred to a tertiary care center on an outpatient basis. Additionally , it will be difficult to adequate evaluate the patient in the hospital bed given her age and physical limitations. Management of the diverticular abscess would be per general surgery. If we can provide assistance in arranging evaluation with nursing support worker at a tertiary institution, would be happy to do so. As far as the other left adnexal process, can f/u with that as an outpatient by ultrasound once her acute infectious has resolved. Happy to actually go see this patient , but there is really nothing that we are going to be able to do /add as an inpatient . Please let us know if we can be of assistance.
[2022-07-05] MEDS: hydrALAZINE 10 MG TAB PO PRN ×2 (14:10→22:21)
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
[2022-07-05] MEDS: PANTOprazole 40 MG in SYRINGE 0 ML IV SCH (17:12)
[2022-07-05] MEDS: D5W AND 1/2NSS + 20MEQ KCL 20 MEQ/1,000 ML BAG IV SCH (17:44)
[2022-07-05] MEDS: MELATONIN 3 MG TAB PO PRN (22:20)
[2022-07-06] MEDS: PIPERACILLIN/TAZOBACTAM 3.375 GM in DEXTROSE 5% 100 ML IV SCH ×3 (02:17→18:30)
[2022-07-06] MEDS ORDERED: traMADol HCL 50 MG TABLET PO ONE (03:34)
[2022-07-06] MEDS: D5W AND 1/2NSS + 20MEQ KCL 20 MEQ/1,000 ML BAG IV SCH (06:09)
[2022-07-06 06:17] LABS: Hematocrit (blood only) 34.5 % (37.0-47.0); Hemoglobin 11.6 g/dl (12.0-16.0); Mean Corpuscular Hgb Conc 33.6 g/dL (32.0-36.0); Mean Corpuscular Volume 83.1 fL (80.0-100.0); Mean Platelet Volume 8.6 fL (9.4-12.4); Platelet Count 180 K/uL (130-400); RDW Coefficient of Variation 15.1 % (11.5-14.5); RDW Standard Deviation 45.7 fL (36.4-46.3); Red Blood Count 4.15 M/uL (4.20-5.40); White Blood Count 4.02 K/ul (4.8-10.8)
[2022-07-06 06:29] LABS: BUN Creatinine Ratio 14.6 (10-20); Calcium 8.9 mg/dl (8.6-10.3); Creatinine Clr Calc Pharmacy 80.6 ml/min; Est GFR (African American) 117.1 ml/min; Est GFR (Non-African American) 101.1 ml/min; Potassium 3.2 mmol/L (3.5-5.1)
[2022-07-06] MEDS: LOSARTAN POTASSIUM 50 MG TAB PO SCH (07:57)
[2022-07-06] MEDS: DORZOLAMIDE/TIMOLOL 22.3/6.8MG/ML 10 ML BTL OPB SCH (07:57)
[2022-07-06] MEDS: ATENOLOL 50 MG TABLET PO SCH ×2 (07:57→22:21)
--- NOTE | 2022-07-06 08:30 | Hospitalist Progress Note ---
Date of Service July 06, 2022 Assessment & Plan (1) Acute diverticulitis: Plan: 77yo female with history of HTN, GERD presenting with acute complicated diverticulitis with 2.6 x 1.2 cm abscess, possible communication with the vaginal cuff. Patient is afebrile, HD stable, non-toxic in appearance. Her abdomen is largely non-tender at this time, no rebound/guarding/peritonitis. Given patients reported history of brown discharge suspect fistula formation. Doubt communication with bladder - UA is unremarkable, no gas in bladder. CT scan abd/pelvis: 1. Findings suggestive of acute to subacute sigmoid diverticulitis. 2.6 x 1.2 cm rim-enhancing fluid collection adjacent to the sigmoid colon suggestive of a diverticular abscess with possible underlying fistula to the vaginal cuff. An additional colovesicular fistula would be difficult to exclude given bladder wall thickening with mild adjacent stranding however no gas within the bladder. 2. New 4.3 cm cystic thick walled left adnexal lesion adjacent to the diverticular abscess and the sigmoid colon. This may be infectious in etiology and an additional abscess would be difficult to exclude although only minimal adjacent stranding. A neoplastic etiology could appear similar but is considered less likely however imaging follow-up to ensure resolution is recommended. This is most likely related to sigmoid diverticulitis. 3. No bowel obstruction. Normal appendix. Input from General Surgery appreciated Plan is for conservative management for now and follow closely. Discussed with pt, her preference would be to avoid surgery unless absolutely necessary, though she is aware that if shows evidence of deterioration, then referral to tertiary center may be necessary WBC 6.05-->4.45-->4.02 Hgb 11.8-->11.4-->11.6 -Continue Zosyn for now -Zofran as needed for nausea -Morphine as needed for pain -General Surgery (Stephen) consultation appreciated pt was on Miralax, surgery requested to be stopped Clear liquid diet, would cautiously advance as per rec of surgery, consider addition of oral supplement if diet advanced Passed stool via rectum x 2 past 24 hrs, still with brownish vaginal discharge -Discussed with Gynecology (Meli Navarrete), will defer to General Surgery (2) Hypertension: Plan: Hypertensive urgency based on blood pressure of 229/87. Patient with poorly controlled hypertension. Blood pressure in 157/73-197/76 range. She reports her blood pressure at home is always over 180mmHg. She denies headache, dizziness, visual disturbances, chest pain, SOB or focal neurological deficits. Her Telmisartan was recently increased. She reports that her blood pressure became very difficult to control following a Covid-19 infection in 2019. -Telmisartan (Micardis) 80mg po daily changed to Losartan 100 mg qd -Continue Atenolol, but will up titrate dose from 50mg po daily to 50 mg bid -Hydralazine 10mg po q 6 hours as needed for systolic blood pressure >180mmHg -Closely monitor for symptoms which may be associated with uncontrolled hypertension, monitor for end-organ dysfunction. Cautiously lower blood pressure with oral agents. -Pain control Will hold off on transfer to unit where can utilize IV anti-HTN, as this apparently is close to her outpt chronic level and cautiously uptitrate Rx (3) GERD (gastroesophageal reflux disease): Plan: Chronic. Stable -Protonix 40mg IV daily F/E/N - Heplock. Electrolytes WNL, check Mg, Low Na diet will be changed to clear liquids as per surgery Ppx - Low risk for DVT Code - DNR/DNI per discussion with patient Dipso - Admit to medical (4) S/P bilateral above knee amputation: Plan: post fall 09/2019 (5) Osteoarthritis: Plan: Pt uses Tramadol for chronic arthritic pain and she is requesting 50 mg 2 tabs q4h prn. Discussed ould prefer smaller dose, 50 mg 1 tab q4h prn and she is accepting. Will order (6) Hypokalemia: Plan: K 3.8-->3.54-->3.2 will adjust IVF, call placed to pharmacy recheck labs in AM, including Mag level Admission and Anticipated Discharge Date Admission Date: July 04, 2022 Subjective significantly less abdominal pain this morning. Had 2 BM's past 24 hrs via rectum, though as per nursing still passing brownish material through vagina Review of Systems Constitutional: afebrile Respiratory: no respiratory distress Cardiovascular: Additional Comments: no chest pain Gastrointestinal: abdominal pain has lessened. Now only with deep palpation Physical Exam Physical Exam: WDWN awake, alert conversant Neck: supple Respiratory: clear, taking deeper breaths, no atelectatic rales noted Cardiovascular: RRR, no murmur, no edema Gastrointestinal (Abdomen): soft, active BS, minimally distended, nontender on light pressure Musculoskeletal: s/p bilateral AKA, (relates to prior fall) Results & Data Results & Data Vital Signs (Past 12 Hours) Vital Signs Temp Pulse Pulse Resp BP Pulse Ox O2 Del Method 07/06/22 07:45 36.4 C L 60 16 197/76 H 100 Room Air 07/05/22 23:40 70 157/73 H 07/05/22 20:24 Room Air 07/05/22 22:20 181/83 H 07/05/22 21:16 36.5 C 74 18 187/76 H 99 Room Air PG Care Time/CCT Total # of Minutes Spent Total Time Spent with Patient: Total time spent is greater than 50% in coordination of care (as documented) at patient's floor/unit and/or counseling patient: Coding Level of Care Code 53084 SUB INP/OBS CARE 2/35MIN Diagnoses Acute diverticulitis K57.92 Hypertension I10 Hypertension type: unspecified GERD (gastroesophageal reflux disease) K21.9 S/P bilateral above knee amputation Z89.611; Z89.612 Osteoarthritis M19.90 Hypokalemia E87.6 (2) Hypertension Hypertension type: unspecified Qualified Code(s): I10 - Essential (primary) hypertension
[2022-07-06] MEDS: POTASSIUM CHLORIDE 30 MEQ in D5W AND 1/2NSS 1,000 ML IV SCH ×2 (09:26→23:13)
[2022-07-06] MEDS ORDERED: Nursing to Pharmacy Communication SCH (09:45)
--- NOTE | 2022-07-06 11:41 | Surgery Progress Note ---
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 No leukocytosis, afebrile, abdominal exam with tenderness in the suprapubic and LLQ with firmness in LLQ on palpation however no peritonitis, rebound, rigidity. Plan: Would recommend conservative management with IV antibiotics for 3-4 days, bowel rest with slow advancement of diet, pain management as needed, antiemetics as needed She will need outpatient follow-up with colorectal surgeon continue medical management Dr. Mitchell has seen and examined patient agrees with above Admission and Anticipated Discharge Date Admission Date: July 04, 2022 Supervising Physician Co-Signing Physician Notes Is seen and examined the patient personally and agree with above assessment and plan. I have seen and examined the patient, and agree with the above assessment plan. We will continue with conservative management slow advance of diet. She will need outpatient follow-up with colorectal surgeon. Subjective feeling better today had multiple loose bowel movements no n,v tolerating clear liquids still having pain but better than when she came into hospital Physical Exam Constitutional: WD/WN, vitals as above + obese; no acute distress and not ill appearing Neck: normal visual inspection and trachea midline Respiratory: normal respiratory effort; no respiratory distress Gastrointestinal (Abdomen): Inspection/Auscultation: abdomen normal to inspection; abdomen not distended Percussion/Palpation: + abdomen tender (LLQ), abdomen soft and + abdomen firm (LLQ); no guarding and abdomen not rigid Skin: no rashes, warm and dry Psychiatric: Orientation: alert and oriented x 3 Results & Data Vital Signs (Past 12 Hours) Vital Signs Temp Pulse Pulse Resp BP Pulse Ox O2 Del Method 07/06/22 07:45 36.4 C L 60 16 197/76 H 100 Room Air 07/05/22 23:40 70 157/73 H Laboratory Results 07/06/22 07/06/22 Range/Units 06:01 06:01 WBC 4.02 L (4.8-10.8) K/ul RBC 4.15 L (4.20-5.40) M/uL Hgb 11.6 L (12.0-16.0) g/dl Hct 34.5 L (37.0-47.0) % MCV 83.1 (80.0-100.0) fL MCH 28.0 (25.0-34.0) pg MCHC 33.6 (32.0-36.0) g/dL RDW Std Deviation 45.7 (36.4-46.3) fL RDW Coeff of Niki 15.1 H (11.5-14.5) % Plt Count 180 (130-400) K/uL MPV 8.6 L (9.4-12.4) fL Sodium 139 (136-145) mmol/L Potassium 3.2 L (3.5-5.1) mmol/L Chloride 108 H (98-107) mmol/L Carbon Dioxide 25 (21-32) mmol/L Anion Gap 6 (3-11) BUN 6 (6-23) mg/dl Creatinine 0.41 L (0.6-1.2) mg/dl Est Cr Clr Drug Dosing 80.6 ml/min Est GFR ( Amer) 117.1 ml/min Est GFR (Non-Af Amer) 101.1 ml/min BUN/Creatinine Ratio 14.6 (10-20) Glucose 138 H (70-99(Fasting)) mg/dl Calcium 8.9 (8.6-10.3) mg/dl (1) Diverticulitis large intestine Diverticulitis bleeding: without bleeding Diverticulitis complication: with abscess Qualified Code(s): K57.20 - Diverticulitis of large intestine with perforation and abscess without bleeding
[2022-07-06] MEDS: PANTOprazole 40 MG in SYRINGE 0 ML IV SCH (11:50)
[2022-07-06] MEDS: traMADol HCL 50 MG TABLET PO PRN ×3 (13:56→22:20)
[2022-07-06] MEDS: hydrALAZINE 10 MG TAB PO PRN (16:24)
[2022-07-06] MEDS: MELATONIN 3 MG TAB PO PRN (22:20)
[2022-07-07] MEDS: PIPERACILLIN/TAZOBACTAM 3.375 GM in DEXTROSE 5% 100 ML IV SCH ×3 (03:26→18:23)
[2022-07-07] MEDS: traMADol HCL 50 MG TABLET PO PRN ×2 (03:38→21:14)
--- NOTE | 2022-07-07 05:41 | Surgery Progress Note ---
Date of Service July 07, 2022 Assessment & Plan (1) Diverticulitis large intestine: Plan: Patient has been admitted on the hospitalist service. Recommend proceeding as follows: Continue analgesics as needed Continue antiemetics as needed Maintain on clear liquids with consideration of advancing patient's diet as her appetite improves Continue IV fluids until certain oral intake is adequate Continue antibiotics in form of Zosyn Check a.m. labs when available Increase mobilization Admission and Anticipated Discharge Date Admission Date: July 04, 2022 Supervising Physician Co-Signing Physician Notes pnt S&E, agree with above. diverticulitis with small abscess/phlegmon. pain improving, tolerating diet. will advance slowly, continue abx. Subjective Patient is resting comfortably in bed. She denies any nausea or vomiting and notes minimal abdominal pain. She has had a bowel movement in the past 24 hours. Physical Exam Gastrointestinal (Abdomen): Abdomen is soft, nonrigid, nondistended. There is minimal to no pain with palpation. There is no rebound tenderness or guarding Results & Data Vital Signs (Past 12 Hours) Vital Signs Temp Pulse Pulse Resp BP Pulse Ox O2 Del Method 07/06/22 22:09 36.5 C 66 18 193/98 H 100 Room Air 07/06/22 18:11 75 174/73 H 100 Room Air PG Care Time/CCT Total # of Minutes Spent Total Time Spent with Patient: Total time spent is greater than 50% in coordination of care (as documented) at patient's floor/unit and/or counseling patient: Coding Level of Care Code 18854 SUB INP/OBS CARE 05/09MIN Diagnoses Diverticulitis large intestine K57.20 Diverticulitis bleeding: without bleeding Diverticulitis complication: with abscess (1) Diverticulitis large intestine Diverticulitis bleeding: without bleeding Diverticulitis complication: with abscess Qualified Code(s): K57.20 - Diverticulitis of large intestine with perforation and abscess without bleeding
[2022-07-07 06:39] LABS: Mean Corpuscular Hemoglobin 28.1 pg (25.0-34.0); Mean Corpuscular Hgb Conc 33.3 g/dL (32.0-36.0); Mean Corpuscular Volume 84.2 fL (80.0-100.0); Platelet Count 155 K/uL (130-400); RDW Coefficient of Variation 15.2 % (11.5-14.5); RDW Standard Deviation 46.1 fL (36.4-46.3); Red Blood Count 3.92 M/uL (4.20-5.40); White Blood Count 3.81 K/ul (4.8-10.8)
[2022-07-07 07:01] LABS: BUN Creatinine Ratio 8.9 (10-20); Calcium 8.7 mg/dl (8.6-10.3); Creatinine Clr Calc Pharmacy 73.4 ml/min; Est GFR (African American) 113.6 ml/min; Magnesium 1.3 mg/dl (1.7-2.4); Potassium 3.8 mmol/L (3.5-5.1)
[2022-07-07] MEDS: PANTOprazole 40 MG in SYRINGE 0 ML IV SCH (07:29)
[2022-07-07] MEDS: ATENOLOL 50 MG TABLET PO SCH ×2 (08:22→21:14)
[2022-07-07] MEDS: LOSARTAN POTASSIUM 50 MG TAB PO SCH (08:23)
[2022-07-07] MEDS: DORZOLAMIDE/TIMOLOL 22.3/6.8MG/ML 10 ML BTL OPB SCH (08:23)
[2022-07-07] MEDS: POTASSIUM CHLORIDE 30 MEQ in D5W AND 1/2NSS 1,000 ML IV SCH (12:38)
--- NOTE | 2022-07-07 15:47 | Hospitalist Progress Note ---
Date of Service July 07, 2022 Assessment & Plan (1) Acute diverticulitis: Plan: 77yo female with history of HTN, GERD presenting with acute complicated diverticulitis with 2.6 x 1.2 cm abscess, possible communication with the vaginal cuff. Patient is afebrile, HD stable, non-toxic in appearance. Her abdomen is largely non-tender at this time, no rebound/guarding/peritonitis. Given patients reported history of brown discharge suspect fistula formation. Doubt communication with bladder - UA is unremarkable, no gas in bladder. CT scan abd/pelvis: 1. Findings suggestive of acute to subacute sigmoid diverticulitis. 2.6 x 1.2 cm rim-enhancing fluid collection adjacent to the sigmoid colon suggestive of a diverticular abscess with possible underlying fistula to the vaginal cuff. An additional colovesicular fistula would be difficult to exclude given bladder wall thickening with mild adjacent stranding however no gas within the bladder. 2. New 4.3 cm cystic thick walled left adnexal lesion adjacent to the diverticular abscess and the sigmoid colon. This may be infectious in etiology and an additional abscess would be difficult to exclude although only minimal adjacent stranding. A neoplastic etiology could appear similar but is considered less likely however imaging follow-up to ensure resolution is recommended. This is most likely related to sigmoid diverticulitis. 3. No bowel obstruction. Normal appendix. Input from General Surgery appreciated Plan is for conservative management for now and follow closely. Discussed with pt, her preference would be to avoid surgery unless absolutely necessary, though she is aware that if shows evidence of deterioration, then referral to tertiary center may be necessary. Remains on clear liquids, will add nutritional supplement WBC 6.05-->4.45-->4.02-->3.81 Hgb 11.8-->11.4-->11.6-->11.0 -Continue Zosyn for now -Zofran as needed for nausea -Morphine as needed for pain -General Surgery (Stephen) consultation appreciated pt was on Miralax, surgery requested to be stopped Clear liquid diet, would cautiously advance as per rec of surgery, consider addition of oral supplement if diet advanced Passed stool via rectum x 2 past 24 hrs, still with brownish vaginal discharge -Discussed with Gynecology (Meli Navarrete), will defer to General Surgery (2) Hypertension: Plan: Hypertensive urgency based on blood pressure of 229/87. Patient with poorly controlled hypertension. Blood pressure in 157/73-197/76 range. She reports her blood pressure at home is always over 180mmHg. She denies headache, dizziness, visual disturbances, chest pain, SOB or focal neurological deficits. Her Telmisartan was recently increased. She reports that her blood pressure became very difficult to control following a Covid-19 infection in 2019. -Telmisartan (Micardis) 80mg po daily changed to Losartan 100 mg qd -Continue Atenolol, but will up titrate dose from 50mg po daily to 50 mg bid -Hydralazine 10mg po q 6 hours as needed for systolic blood pressure >180mmHg -Closely monitor for symptoms which may be associated with uncontrolled hypertension, monitor for end-organ dysfunction. Cautiously lower blood pressure with oral agents. -Pain control Will hold off on transfer to unit where can utilize IV anti-HTN, as this apparently is close to her outpt chronic level and cautiously uptitrate Rx. BP remains elevated at 176/77, will add low dose Norvasc and stop IVF (3) GERD (gastroesophageal reflux disease): Plan: Chronic. Stable -Protonix 40mg IV daily F/E/N - Heplock. Electrolytes WNL, check Mg, Low Na diet will be changed to clear liquids as per surgery, will add nutrient supplement Ppx - Low risk for DVT Code - DNR/DNI per discussion with patient Dipso - Admit to medical (4) S/P bilateral above knee amputation: Plan: post fall 09/2019 (5) Osteoarthritis: Plan: Pt uses Tramadol for chronic arthritic pain and she is requesting 50 mg 2 tabs q4h prn. Discussed ould prefer smaller dose, 50 mg 1 tab q4h prn and she is accepting. Will order (6) Hypokalemia: Plan: K 3.8-->3.54-->3.2-->3.8 will adjust IVF, call placed to pharmacy Mag 1.3, will add oral Mag supplement Admission and Anticipated Discharge Date Admission Date: July 04, 2022 Subjective Patient is resting comfortably in bed. She denies any nausea or vomiting and notes minimal abdominal pain. She has had a bowel movement in the past 24 hours. Review of Systems Constitutional: afebrile Respiratory: no respiratory distress Cardiovascular: Additional Comments: no chest pain Gastrointestinal: abdominal pain has lessened. Now only with deep palpation Genitourinary: passing brownish material through vagina Neurologic: grossly intact Physical Exam Physical Exam: WDWN awake, alert conversant Constitutional: WD/WN, vitals as above Neck: trachea midline, no thyromegaly Respiratory: normal respiratory effort, lungs clear to auscultation Cardiovascular: RRR, no murmur, no edema Gastrointestinal (Abdomen): soft, nontender, normal BS Musculoskeletal: s/p bilateral AKA Neurologic: PERRL, EOMI, accommodation nl, no face palsy, no dysarthria Results & Data Results & Data Vital Signs (Past 12 Hours) Vital Signs Temp Pulse Resp BP Pulse Ox O2 Del Method 07/07/22 14:34 36.6 C 68 16 176/77 H 100 Room Air 07/07/22 07:06 36.5 C 63 16 198/73 H 100 Room Air PG Care Time/CCT Total # of Minutes Spent Total Time Spent with Patient: Total time spent is greater than 50% in coordination of care (as documented) at patient's floor/unit and/or counseling patient: Coding Level of Care Code 85481 SUB INP/OBS CARE MIN Diagnoses Acute diverticulitis K57.92 Hypertension I10 Hypertension type: unspecified GERD (gastroesophageal reflux disease) K21.9 S/P bilateral above knee amputation Z89.611; Z89.612 Osteoarthritis M19.90 Hypokalemia E87.6 (2) Hypertension Hypertension type: unspecified Qualified Code(s): I10 - Essential (primary) hypertension
[2022-07-07] MEDS: amLODIPine BESYLATE 5 MG TAB PO SCH (17:05)
[2022-07-07] MEDS: MAGNESIUM OXIDE 400 MG TAB PO SCH (17:05)
[2022-07-07] MEDS: MELATONIN 3 MG TAB PO PRN (21:14)
[2022-07-08] MEDS: PIPERACILLIN/TAZOBACTAM 3.375 GM in DEXTROSE 5% 100 ML IV SCH ×3 (03:57→18:44)
--- NOTE | 2022-07-08 05:20 | Surgery Progress Note ---
Date of Service July 08, 2022 Assessment & Plan (1) Diverticulitis large intestine: Plan: Patient has been admitted on the hospitalist service. Recommend proceeding as follows: Continue analgesics as needed Continue antiemetics as needed -Patient is tolerating full liquids. Consideration can be given to placing on solid food Continue IV fluids until certain oral intake is adequate Continue antibiotics in form of Zosyn Check a.m. labs when available Increase mobilization Admission and Anticipated Discharge Date Admission Date: July 04, 2022 Subjective Patient is resting comfortably in bed. She denies any nausea or vomiting and reports she had a bowel movement over the past 24 hours. She notes minimal abdominal pain. Physical Exam Gastrointestinal (Abdomen): Abdomen is soft and nondistended. There is minimal to no pain with palpation. There is no rebound tenderness or guarding. Results & Data Vital Signs (Past 12 Hours) Vital Signs Temp Pulse Resp BP Pulse Ox O2 Del Method 07/07/22 21:26 36.6 C 69 16 175/79 H 99 Room Air PG Care Time/CCT Total # of Minutes Spent Total Time Spent with Patient: Total time spent is greater than 50% in coordination of care (as documented) at patient's floor/unit and/or counseling patient: Coding Level of Care Code 18360 SUB INP/OBS CARE 05/09MIN Diagnoses Diverticulitis large intestine K57.20 Diverticulitis bleeding: without bleeding Diverticulitis complication: with abscess (1) Diverticulitis large intestine Diverticulitis bleeding: without bleeding Diverticulitis complication: with abscess Qualified Code(s): K57.20 - Diverticulitis of large intestine with perforation and abscess without bleeding
[2022-07-08] MEDS: amLODIPine BESYLATE 5 MG TAB PO SCH (07:22)
[2022-07-08] MEDS: LOSARTAN POTASSIUM 50 MG TAB PO SCH (07:23)
[2022-07-08] MEDS: ATENOLOL 50 MG TABLET PO SCH ×2 (07:23→20:00)
[2022-07-08] MEDS: MAGNESIUM OXIDE 400 MG TAB PO SCH (07:23)
[2022-07-08] MEDS: DORZOLAMIDE/TIMOLOL 22.3/6.8MG/ML 10 ML BTL OPB SCH (07:23)
[2022-07-08] MEDS: PANTOprazole 40 MG in SYRINGE 0 ML IV SCH (07:42)
[2022-07-08] MEDS: traMADol HCL 50 MG TABLET PO PRN ×3 (07:53→22:12)
--- NOTE | 2022-07-08 14:16 | Hospitalist Progress Note ---
Date of Service July 08, 2022 Assessment & Plan (1) Acute diverticulitis: Plan: 77yo female with history of HTN, GERD presenting with acute complicated diverticulitis with 2.6 x 1.2 cm abscess, possible communication with the vaginal cuff. Patient is afebrile, HD stable, non-toxic in appearance. Her abdomen is largely non-tender at this time, no rebound/guarding/peritonitis. Given patients reported history of brown discharge suspect fistula formation. Doubt communication with bladder - UA is unremarkable, no gas in bladder. CT scan abd/pelvis: 1. Findings suggestive of acute to subacute sigmoid diverticulitis. 2.6 x 1.2 cm rim-enhancing fluid collection adjacent to the sigmoid colon suggestive of a diverticular abscess with possible underlying fistula to the vaginal cuff. An additional colovesicular fistula would be difficult to exclude given bladder wall thickening with mild adjacent stranding however no gas within the bladder. 2. New 4.3 cm cystic thick walled left adnexal lesion adjacent to the diverticular abscess and the sigmoid colon. This may be infectious in etiology and an additional abscess would be difficult to exclude although only minimal adjacent stranding. A neoplastic etiology could appear similar but is considered less likely however imaging follow-up to ensure resolution is recommended. This is most likely related to sigmoid diverticulitis. 3. No bowel obstruction. Normal appendix. Input from General Surgery appreciated, pt has been placed on full liquid diet by surgery, agree with advancing diet as she is fully tolerating full liquids Plan is for conservative management for now and follow closely. Discussed with pt, her preference would be to avoid surgery unless absolutely necessary, though she is aware that if shows evidence of deterioration, then referral to tertiary center may be necessary. WBC 6.05-->4.45-->4.02-->3.81 Hgb 11.8-->11.4-->11.6-->11.0 -Continue Zosyn for now, would defer timing of stoppage to surgery -Zofran as needed for nausea -Morphine as needed for pain -General Surgery (Stephen) consultation appreciated pt was on Miralax, surgery requested to be stopped Clear liquid diet, would cautiously advance as per rec of surgery, consider addition of oral supplement if diet advanced Passed stool via rectum x 2 past 24 hrs, still with brownish vaginal discharge -Discussed with Gynecology (Meli Navarrete), will defer to General Surgery (2) Hypertension: Plan: Hypertensive urgency based on blood pressure of 229/87. Patient with poorly controlled hypertension. Blood pressure in 157/73-197/76 range. She reports her blood pressure at home is always over 180mmHg. She denies headache, dizziness, visual disturbances, chest pain, SOB or focal neurological deficits. Her Telmisartan was recently increased. She reports that her blood pressure became very difficult to control following a Covid-19 infection in 2019. -Telmisartan (Micardis) 80mg po daily changed to Losartan 100 mg qd -Continue Atenolol, but will up titrate dose from 50mg po daily to 50 mg bid -Hydralazine 10mg po q 6 hours as needed for systolic blood pressure >180mmHg -Closely monitor for symptoms which may be associated with uncontrolled hypertension, monitor for end-organ dysfunction. Cautiously lower blood pressure with oral agents. -Pain control Will hold off on transfer to unit where can utilize IV anti-HTN, as this apparently is close to her outpt chronic level and cautiously uptitrate Rx. BP remains elevated at 176/77, added low dose Norvasc and stop IVF, but BP remains elevated. Will follow BP next 1-2 days and consider uptitrate if BP remains elevated (3) GERD (gastroesophageal reflux disease): Plan: Chronic. Stable -Protonix 40mg IV daily F/E/N - Heplock. Electrolytes WNL, check Mg, Low Na diet will be changed to clear liquids as per surgery, will add nutrient supplement Ppx - Low risk for DVT Code - DNR/DNI per discussion with patient Dipso - Admit to medical (4) S/P bilateral above knee amputation: Plan: post fall 09/2019 Hx of childhood polio. Would ambulate with braces on legs prior to the fall with resultant fractures (5) Osteoarthritis: Plan: Pt uses Tramadol for chronic arthritic pain and she is requesting 50 mg 2 tabs q4h prn. Discussed would prefer smaller dose, 50 mg 1 tab q4h prn and she is accepting. Will order (6) Hypokalemia: Plan: K 3.8-->3.54-->3.2-->3.8 Mag 1.3, will add oral Mag supplement, recheck Admission and Anticipated Discharge Date Admission Date: July 04, 2022 Subjective Patient is resting comfortably in bed. She denies any nausea or vomiting and reports she has had bowel movements over the past 24 hours. She notes resolution of abdominal pain. Review of Systems Constitutional: afebrile Respiratory: no respiratory distress Cardiovascular: Additional Comments: no chest pain Gastrointestinal: abdominal pain has resolved. Now only with deep palpation Genitourinary: passing brownish material through vagina Neurologic: grossly intact Physical Exam Physical Exam: WDWN awake, alert conversant Constitutional: WD/WN, vitals as above Neck: trachea midline, no thyromegaly Respiratory: normal respiratory effort, lungs clear to auscultation Cardiovascular: RRR, no murmur, no edema Gastrointestinal (Abdomen): soft, essentially nontender, normal BS Musculoskeletal: s/p bilateral AKA Neurologic: PERRL, EOMI, accommodation nl, no face palsy, no dysarthria Results & Data Results & Data Vital Signs (Past 12 Hours) Vital Signs Temp Pulse Resp BP Pulse Ox O2 Del Method 07/08/22 07:18 36.6 C 67 16 196/81 H 100 Room Air PG Care Time/CCT Total # of Minutes Spent Total Time Spent with Patient: Total time spent is greater than 50% in coordination of care (as documented) at patient's floor/unit and/or counseling patient: Coding Level of Care Code 28455 SUB INP/OBS CARE 2/35MIN Diagnoses Acute diverticulitis K57.92 Hypertension I10 Hypertension type: unspecified GERD (gastroesophageal reflux disease) K21.9 S/P bilateral above knee amputation Z89.611; Z89.612 Osteoarthritis M19.90 Hypokalemia E87.6 (2) Hypertension Hypertension type: unspecified Qualified Code(s): I10 - Essential (primary) hypertension
[2022-07-08] MEDS: MELATONIN 3 MG TAB PO PRN (22:12)
[2022-07-09] MEDS: PIPERACILLIN/TAZOBACTAM 3.375 GM in DEXTROSE 5% 100 ML IV SCH ×2 (02:56→10:42)
[2022-07-09 06:50] LABS: Hematocrit (blood only) 33.3 % (37.0-47.0); Hemoglobin 11.1 g/dl (12.0-16.0); Mean Corpuscular Hemoglobin 28.2 pg (25.0-34.0); Mean Corpuscular Hgb Conc 33.3 g/dL (32.0-36.0); Mean Corpuscular Volume 84.5 fL (80.0-100.0); Mean Platelet Volume 8.9 fL (9.4-12.4); Platelet Count 167 K/uL (130-400); RDW Coefficient of Variation 14.9 % (11.5-14.5); RDW Standard Deviation 45.6 fL (36.4-46.3); Red Blood Count 3.94 M/uL (4.20-5.40); White Blood Count 5.06 K/ul (4.8-10.8)
[2022-07-09 07:22] LABS: Albumin Globulin Ratio 1.1 (0.9-2); Albumin Level 3.1 gm/dl (3.4-5.0); BUN Creatinine Ratio 16.1 (10-20); Bilirubin,Total 0.4 mg/dl (0.2-1.0); Calcium 9.1 mg/dl (8.6-10.3); Est GFR (African American) 105.7 ml/min; Est GFR (Non-African American) 91.2 ml/min; Globulin 2.9 gm/dl (2.5-4.0); Magnesium 1.5 mg/dl (1.7-2.4); Potassium 3.6 mmol/L (3.5-5.1)
[2022-07-09] MEDS: traMADol HCL 50 MG TABLET PO PRN (07:41)
[2022-07-09] MEDS: amLODIPine BESYLATE 5 MG TAB PO SCH (07:41)
[2022-07-09] MEDS: ATENOLOL 50 MG TABLET PO SCH (07:41)
[2022-07-09] MEDS: LOSARTAN POTASSIUM 50 MG TAB PO SCH (07:43)
[2022-07-09] MEDS: MAGNESIUM OXIDE 400 MG TAB PO SCH (07:43)
[2022-07-09] MEDS: DORZOLAMIDE/TIMOLOL 22.3/6.8MG/ML 10 ML BTL OPB SCH (07:47)
[2022-07-09] MEDS: PANTOprazole 40 MG in SYRINGE 0 ML IV SCH (07:47)
--- NOTE | 2022-07-09 10:13 | Surgery Progress Note ---
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 Plan: Can likely discharge today with transition to oral antibiotics to finish a 14 day total course of IV and oral antibiotics she will need outpatient colorectal surgery evaluation, can see [facility] Low fiber diet for 2-4 weeks Our services signing off, please call with questions/concerns. Dr. Mitchell has seen and examined patient agrees with above Admission and Anticipated Discharge Date Admission Date: July 04, 2022 Supervising Physician Co-Signing Physician Notes I have seen and examined the patient and agree with the above assessment and plan. She is doing well. She will continue on antibiotics. We will sign off. Please call with questions or concerns. Subjective feeling great no abdominal pain tolerating solid foods no n,v + bowel movements Still having brownish vaginal discharge Physical Exam Constitutional: WD/WN, vitals as above + obese, cooperative and comfortable; no acute distress and not ill appearing Gastrointestinal (Abdomen): Inspection/Auscultation: abdomen normal to inspection; abdomen not distended Percussion/Palpation: abdomen soft; abdomen nontender, no guarding and abdomen not rigid Psychiatric: A+Ox3, euthymic affect Results & Data Vital Signs (Past 12 Hours) Vital Signs Temp Pulse Resp BP Pulse Ox O2 Del Method 07/09/22 07:58 36.6 C 62 17 181/71 H 100 Room Air Laboratory Results 07/09/22 07/09/22 Range/Units 05:52 05:52 WBC 5.06 (4.8-10.8) K/ul RBC 3.94 L (4.20-5.40) M/uL Hgb 11.1 L (12.0-16.0) g/dl Hct 33.3 L (37.0-47.0) % MCV 84.5 (80.0-100.0) fL MCH 28.2 (25.0-34.0) pg MCHC 33.3 (32.0-36.0) g/dL RDW Std Deviation 45.6 (36.4-46.3) fL RDW Coeff of Niki 14.9 H (11.5-14.5) % Plt Count 167 (130-400) K/uL MPV 8.9 L (9.4-12.4) fL Sodium 138 (136-145) mmol/L Potassium 3.6 (3.5-5.1) mmol/L Chloride 106 (98-107) mmol/L Carbon Dioxide 26 (21-32) mmol/L Anion Gap 6 (3-11) BUN 9 (6-23) mg/dl Creatinine 0.56 L (0.6-1.2) mg/dl Est Cr Clr Drug Dosing 59.0 ml/min Est GFR ( Amer) 105.7 ml/min Est GFR (Non-Af Amer) 91.2 ml/min BUN/Creatinine Ratio 16.1 (10-20) Glucose 97 (70-99(Fasting)) mg/dl Calcium 9.1 (8.6-10.3) mg/dl Magnesium 1.5 L (1.7-2.4) mg/dl Total Bilirubin 0.4 (0.2-1.0) mg/dl AST 11 L (13-39) U/L ALT 7 (7-52) U/L Alkaline Phosphatase 80 (34-104) U/L Total Protein 6.0 (6.0-8.3) gm/dl Albumin 3.1 L (3.4-5.0) gm/dl Globulin 2.9 (2.5-4.0) gm/dl Albumin/Globulin Ratio 1.1 (0.9-2) (1) Diverticulitis large intestine Diverticulitis bleeding: without bleeding Diverticulitis complication: with abscess Qualified Code(s): K57.20 - Diverticulitis of large intestine with perforation and abscess without bleeding
--- NOTE | 2022-07-09 15:53 | Discharge Summary ---
Date of Service July 09, 2022 Admission HPI Per Admitting Provider Yani Dodson is a 77-year-old female presenting wt abdominal pain. Patient has a history of poorly controlled hypertension, GERD, diverticulosis. She has a history of childhood polio and is non-ambulatory. She had bilateral above knee amputations performed in August 2019 follow bilateral traumatic femur fractures. Patient reports that approximately 1-1/2 months ago she began having blood in her urine. She was seen by her PCP and was started on a course of Macrobid for presumed urinary tract infection. She completed a 5-day course of antibiotics which cleared her hematuria. Shortly after she began having brown discharge in her underpants and increased urinary incontinence. She is uncertain if the discharge is coming from her urine or her vagina. She also began having crampy left-sided abdominal pain. She was treated with another 5-day course of Macrobid without significant improvement. This course of Macrobid completed on 07/01/2022. On 07/02/2022 patient began having worsening left lower quadrant abdominal pain - crampy in nature. On 07/03/2022 she began having worsening brown discharge. She contacted her PCP with these complaints and was instructed to come to the ER. In the ER patient is afebrile, markedly hypertensive with blood pressure 229/87. No respiratory distress, adequate oxygenation on room air. Patient denies fever, chills, chest pain, cough, shortness of breath. Denies n ausea, vomiting, diarrhea or constipation. She notes normal appetite and normal bowel movements. Patient had a colonoscopy performed on 07/07/2021 which revealed diverticulosis and few erosions in the transverse colon which were biopsied and found to be benign. ER Course: Zosyn Tylenol Discharge Exam WDWN awake, alert conversant Constitutional WD/WN, vitals as above Neck trachea midline, no thyromegaly Respiratory normal respiratory effort, lungs clear to auscultation Cardiovascular RRR, no murmur, no edema Neurologic PERRL, EOMI, accommodation nl, no face palsy, no dysarthria Discharge Data Allergies Allergy/AdvReac Type Severity Reaction Status Date / Time adhesive tape Allergy Mild SKIN Verified 07/04/22 13:58 IRRITATION No Known Drug Allergies Allergy Unknown NKDA Verified 07/04/22 13:58 Consultations 07/04/22 21:44 Consult General Surgery Routine Consult Gynecology Routine Ordered Studies 07/04/22 16:40 CT abd pelvis IV con only Stat Hospital Course (1) Acute diverticulitis: 77yo female with history of HTN, GERD presenting with acute complicated diverticulitis with 2.6 x 1.2 cm abscess, possible communication with the vaginal cuff. Patient is afebrile, HD stable, non-toxic in appearance. Her abdomen is largely non-tender at this time, no rebound/guarding/peritonitis. Given patients reported history of brown discharge suspect fistula formation. Doubt communication with bladder - UA is unremarkable, no gas in bladder. CT scan abd/pelvis: 1. Findings suggestive of acute to subacute sigmoid diverticulitis. 2.6 x 1.2 cm rim-enhancing fluid collection adjacent to the sigmoid colon suggestive of a diverticular abscess with possible underlying fistula to the vaginal cuff. An additional colovesicular fistula would be difficult to exclude given bladder wall thickening with mild adjacent stranding however no gas within the bladder. 2. New 4.3 cm cystic thick walled left adnexal lesion adjacent to the diverticular abscess and the sigmoid colon. This may be infectious in etiology and an additional abscess would be difficult to exclude although only minimal adjacent stranding. A neoplastic etiology could appear similar but is considered less likely however imaging follow-up to ensure resolution is recommended. This is most likely related to sigmoid diverticulitis. 3. No bowel obstruction. Normal appendix. Input from General Surgery appreciated, pt has been placed on full liquid diet by surgery, agree with advancing diet as she is fully tolerating full liquids Plan is for conservative management for now and follow closely. Discussed with pt, her preference would be to avoid surgery unless absolutely necessary, though she is aware that if shows evidence of deterioration, then referral to tertiary center may be necessary. WBC 6.05-->4.45-->4.02-->3.81 Hgb 11.8-->11.4-->11.6-->11.0 -Continue Zosyn for now, would defer timing of stoppage to surgery -Zofran as needed for nausea -Morphine as needed for pain -General Surgery (Stephen) consultation appreciated pt was on Miralax, surgery requested to be stopped Clear liquid diet, would cautiously advance as per rec of surgery, consider addition of oral supplement if diet advanced Passed stool via rectum x 2 past 24 hrs, still with brownish vaginal discharge -Discussed with Gynecology (Meli Navarrete), will defer to General Surgery (2) Hypertension: Hypertensive urgency based on blood pressure of 229/87. Patient with poorly controlled hypertension. Blood pressure in 157/73-197/76 range. She reports her blood pressure at home is always over 180mmHg. She denies headache, dizziness, visual disturbances, chest pain, SOB or focal neurological deficits. Her Telmisartan was recently increased. She reports that her blood pressure became very difficult to control following a Covid-19 infection in 2019. -Telmisartan (Micardis) 80mg po daily changed to Losartan 100 mg qd -Continue Atenolol, but will up titrate dose from 50mg po daily to 50 mg bid -Hydralazine 10mg po q 6 hours as needed for systolic blood pressure >180mmHg -Closely monitor for symptoms which may be associated with uncontrolled hypertension, monitor for end-organ dysfunction. Cautiously lower blood pressure with oral agents. -Pain control Will hold off on transfer to unit where can utilize IV anti-HTN, as this a pparently is close to her outpt chronic level and cautiously uptitrate Rx. BP remains elevated at 176/77, added low dose Norvasc and stop IVF, but BP remains elevated. Will follow BP next 1-2 days and consider uptitrate if BP remains elevated (3) GERD (gastroesophageal reflux disease): Chronic. Stable -Protonix 40mg IV daily F/E/N - Heplock. Electrolytes WNL, check Mg, Low Na diet will be changed to clear liquids as per surgery, will add nutrient supplement Ppx - Low risk for DVT Code - DNR/DNI per discussion with patient Dipso - Admit to medical (4) S/P bilateral above knee amputation: post fall 09/2019 Hx of childhood polio. Would ambulate with braces on legs prior to the fall with resultant fractures (5) Osteoarthritis: Pt uses Tramadol for chronic arthritic pain and she is requesting 50 mg 2 tabs q4h prn. Discussed would prefer smaller dose, 50 mg 1 tab q4h prn and she is accepting. Will order (6) Hypokalemia: K 3.8-->3.54-->3.2-->3.8 Mag 1.3, will add oral Mag supplement, recheck Discharge Plan Discharge Items Reason For Visit: ABDOMINAL PAIN, DIVERTICULITIS Discharge Diagnosis: abdominal pain/ diverticulitis Activity: Resume your previous activity Non-emergency contact: Primary Care Provider Call non-emergency contact if: you have any medication questions Follow-up/Referrals: Malachi Michelle, [Primary Care Provider] - Marily Galvan MD [Outside Practitioners] - Diet: Low Fiber Addtl Attending Provider Instructions: Please continue antibiotics: first dose tonight. Addtl Fried Cake Maker Provider Instructions: General Surgery Recommendations: - finish entire course of antibiotics as prescribed - low fiber diet for 2-4 weeks - Given the probably colovaginal fistula you will need to see colorectal surgery as outpatient. [facility] colorectal surgeons do come to [facility] to see patients 1-2 times per month. Please reach out to them to schedule an appointment. Pending Studies at Discharge: No Stand-Alone Forms: [facility] [employer], Smoking Cessation Medications and DC Order Prescriptions: New magnesium oxide 400 mg (241.3 mg magnesium) Tablet 400 mg PO QAM Qty: 7 0RF amoxicillin-pot clavulanate 875-125 mg tablet 1 tab PO BID Qty: 18 0RF Rx Instructions: Take first dose tonight with a full stomach to limit nausea Continued tramadol 50 mg tablet 50 - 100 mg PO BID PRN (Reason: pain) Qty: 120 0RF telmisartan 80 mg tablet 80 mg PO DAILY Qty: 30 2RF atenolol 50 mg tablet 50 mg PO QAM dorzolamide-timolol 22.3-6.8 mg/mL drops 1 drp OPB QAM omeprazole 20 mg capsule,delayed release(DR/EC) 20 mg PO QAM Krames/Other Patient Handouts: Diverticulitis Dc Admission Data Admit Date/Time: 07/04/22 19:42 Attending Provider: Jorge Haas Admit Provider: Jasmine Toth Primary Care Provider: Malachi Michelle Other Providers: Misty Rosen ; Bhavin Castillo Coding Diagnoses Acute diverticulitis K57.92 Hypertension I10 Hypertension type: unspecified GERD (gastroesophageal reflux disease) K21.9 S/P bilateral above knee amputation Z89.611; Z89.612 Osteoarthritis M19.90 Hypokalemia E87.6
== END 2022-07-09 17:25 | disposition home or self-care (01) | DRG 392 ==
LOC: ED 14:46 → EDINP 19:42 → SUATTDRO 19:42 → 3E 21:27

== ENCOUNTER 2022-11-05 16:11 | Inpatient (IN) ==
--- NOTE | 2022-11-05 16:38 | ED Triage Note ---
Date of Service November 05, 2022 History of Present Illness This patient was briefly evaluated while in triage. An abbreviated physical exam was performed. 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 1 week ago, the larger incision became infected and there was purulent drainage. Pt. was in the ED last week and had abscess drained and packed. Pt. saw her PA and had wound re- packed. Reviewed culture results and Rx 2 "very powerful antibiotics which are doing a number on my stomach." Pt. is c/o headache and nausea. States she is not tolerating the antibiotics. Wound seems to be improving per PCP. Slight drainage. Has had packing in place for past 4 days. Referred to the ED for IV antibiotics/admission due to unable to tolerate antibiotics. Physical Exam VITALS: Vitals are noted on the nurse's note and reviewed by myself. GENERAL: This is a 77 year old female, in no acute distress, nondiaphoretic, well-developed well-nourished. SKIN: No obvious rashes, edema, erythema HEAD: Normocephalic atraumatic. EYES: Conjunctivae without injection, sclerae without icterus. NECK: No JVD. LUNGS: No retractions or accessory muscle use. MUSCULOSKELETAL: Anoop LE amputation. Pt. presents in a wheelchair NEURO: Patient was alert and oriented to person place and time. No focal neurological deficits. Initial orders for labs and / or imaging were placed and patient was placed in the waiting area until a bed is available. Please see further documentation for the full ED course.
[2022-11-05 17:33] LABS: Basophils # (auto) 0.05 K/uL (0-0.2); Basophils % (auto) 0.8 %; Eosinophils # (auto) 0.25 K/uL (0-0.50); Eosinophils % (auto) 3.8 %; Hemoglobin 9.4 g/dl (12.0-16.0); Immature Granulocytes # (auto) 0.06 K/uL (0.01-0.20); Immature Granulocytes % (auto) 0.9 %; Lymphocytes # (auto) 0.95 K/uL (1.2-3.4); Lymphocytes % (auto) 14.6 %; Mean Corpuscular Hemoglobin 26.5 pg (25.0-34.0); Mean Corpuscular Hgb Conc 32.4 g/dL (32.0-36.0); Mean Corpuscular Volume 81.7 fL (80.0-100.0); Mean Platelet Volume 9.4 fL (9.4-12.4); Monocytes # (auto) 0.44 K/uL (0.11-0.59); Monocytes % (auto) 6.7 %; Neutrophils # (auto) 4.77 K/uL (1.40-6.50); Neutrophils % (auto) 73.2 %; Platelet Count 250 K/uL (130-400); RDW Coefficient of Variation 12.9 % (11.5-14.5); RDW Standard Deviation 37.9 fL (36.4-46.3); Red Blood Count 3.55 M/uL (4.20-5.40); White Blood Count 6.52 K/ul (4.8-10.8)
[2022-11-05 17:52] LABS: Alanine Aminotransferase 7 U/L (7-52); Albumin Globulin Ratio 1.1 (0.9-2); Albumin Level 3.6 gm/dl (3.4-5.0); Alkaline Phosphatase 74 U/L (34-104); Anion Gap 8 (3-11); Aspartate Aminotransferase 15 U/L (13-39); BUN Creatinine Ratio 14.6 (10-20); Bilirubin,Total 0.4 mg/dl (0.2-1.0); Blood Urea Nitrogen 7 mg/dl (6-23); Calcium 9.5 mg/dl (8.6-10.3); Carbon Dioxide 24 mmol/L (21-32); Chloride 103 mmol/L (98-107); Est GFR (African American) 111.2 ml/min; Globulin 3.3 gm/dl (2.5-4.0); Glucose 97 mg/dl (70-99(Fasting)); Magnesium 1.3 mg/dl (1.7-2.4); Potassium 3.4 mmol/L (3.5-5.1); Sodium 135 mmol/L (136-145); Total Protein 6.9 gm/dl (6.0-8.3)
[2022-11-05] MEDS ORDERED: LINEZOLID 600 MG/300 ML BAG IV STA (18:30)
[2022-11-05] MEDS ORDERED: SODIUM CHLORIDE 0.9% 500 ML IV ONE (18:31)
--- NOTE | 2022-11-05 18:32 | Emergency Department Note ---
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 Following this the incision opened up several days later. It was packed. It was cultured. She currently on Cipro and Zyvox orally. She is getting very sick to her stomach cannot eat or drink. She seen by her PCP who sent her in for admission for IV antibiotics. She does admit to a mild headache. No chest pain or shortness of breath. She does have an upset stomach. She notes no swelling or redness around the incision site. PAST MEDICAL HISTORY:See Below PAST SURGICAL HISTORY:See Below FAMILY HISTORY:See Below SOCIAL HISTORY:See Below HOME MEDICATIONS:See Below ALLERGIES:See Below VITALS:See Below PHYSICAL EXAMINATION: GENERAL: Sitting up in bed, alert, well appearing, well nourished, no distress, non-toxic EYE EXAM: normal conjunctiva. OROPHARYNX: mucous membranes are moist LUNGS: Clear to auscultation. Normal chest wall mechanics HEART: no murmurs, S1 normal and S2 normal ABDOMEN: abdomen soft, non-tender, incision in right lower quadrant with packing in place. No drainage. No discharge. No surrounding erythema or induration. Normo-active bowel sounds, no masses, no rebound or guarding. BACK: Back is symmetrical on inspection and there is no deformity, no midline tenderness, no CVA tenderness. SKIN: no rashes and no bruising UPPER EXTREMITIES: upper extremities are grossly normal. LOWER EXTREMITIES: No pitting edema. NEURO EXAM: Normal sensorium, cranial nerves II-XII grossly intact, normal speech, no gross weakness of arms, no gross weakness of legs. MEDICAL DECISION MAKING: Patient is a 77-year-old female who presents ER for above-stated complaint. IV was established blood work was obtained. External records were reviewed which included PCPs note from earlier today as they sent her in she is feeling and feeling sick to her stomach on her current antibiotic outpatient regiment. She is currently being treated for VRE and Pseudomonas infection of her abdominal wall postop. Labs show no significant leukocytosis. Mild anemia 9.4. BMP with mild hypokalemia 3.4. Mag slightly low at 1.3. LFTs was unremarkable. Pro-Jose David less than 0.05. UA clean. COVID-negative. On exam she has no surrounding erythema or induration. Packing still present. Will defer to surgery/hospitalist. Patient was given a dose of IV antibiotics as well as IV fluids. Updated bedside discussed with the hospitalist for further evaluation management treatment Dr. Yordy Mai. Triage Nursing notes reviewed. Limited review of prior medical records performed Vital Signs: reviewed and remarkable for no significant abnormalities Differential diagnosis: Cellulitis, abscess, MRSA infection, DVT, necrotizing fasciitis, dermatitis, drug eruption, allergic reaction, as well as other pathologies. ER treatment provided: See below Diagnostics interpreted by me include EKG and cardiac monitoring as listed below: -Cardiac Monitoring: An order was placed for continuous cardiac monitoring. The monitor shows a rate of 70 with sinus rhythm. -ECG: none -Laboratory studies:Interpreted by me as stated above in MDM and shown below. Imaging studies: Xrays: As interpreted by me:none CTs show: none Consultation(s): As described in MDM Procedures:none Critical Care: None Past Med/Surg History Medical History Acne rosacea Amputation leg, bilat 09/2019 after b/l femoral fractures Bilateral femoral fractures Diverticulitis large intestine GERD (gastroesophageal reflux disease) History of COVID-19 diagnosed 05/29/21--headache, sore throat, cough and congestion, then had blood in urine--states she currently has no symptoms History of recent blood transfusion (~06/28/21) Morbid obesity with BMI of 45.0-49.9, adult Osteoarthritis Polio Diagnosed in the 1950s. Ambulatory with bracing until 2010, when shoulder pain restricted her to the motorized wheelchair. 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 Hanna History of bilateral cataract extraction History of carpal tunnel release LEFT History of colonoscopy (~06/2021) Negative, no further screening recommended History of esophagogastroduodenoscopy (EGD) (~06/2021) Negative History of hysterectomy History of surgery CALCIUM DEPOSITS REMOVED 1956 Hx of cholecystectomy Family History Mother Factor V Leiden Breast cancer Myocardial infarction Hypertension Family/Other Factor V Leiden nephew Father Myocardial infarction Stroke Other Cancer No family history of adverse response to anesthesia Denies family history of Ovarian cancer Prostate cancer Diabetes Lung cancer Colorectal cancer Lung disease Social History Smoking Status: Never smoker Second Hand Exposure: Yes (when she was younger); Do You Dip or Chew Tobacco: No; Hx Alcohol Use: Yes Alcohol type: wine and hard liquor Alcohol Intake Frequency: 4 or More x per/Week Hx Substance Use: No Preferred Language: Cameroonian Communication Ability: Effective Visual Impairment: No Limitations Hearing Ability: Normal Coal Bagger Required: No Beliefs That Will Affect Care: None marital status: Single Current Living Situation: Alone current occupational status: retired How many Children do You have: 0 Feels Safe at Home: Yes Childhood Exposure to Second-Hand Smoke: Yes caffeine: Yes Dental Care, Regularly: Yes Physical Activity Frequency: Does not Exercise Seatbelt Use: always Sunscreen Use: No Assistive Devices: Scooter/Electric Scooter and Other Allergies Allergies Allergy/AdvReac Type Severity Reaction Status Date / Time adhesive tape Allergy Mild SKIN Verified 11/05/22 15:35 IRRITATION No Known Drug Allergies Allergy Unknown NKDA Verified 11/05/22 15:35 Home Meds Home Medications Medication Instructions Recorded Confirmed dorzolamide 22.3 mg-timolol 6.8 1 drp OPB QAM 06/01/21 11/05/22 mg/mL eye drops atenolol 50 mg tablet 50 mg PO DAILY 10/30/22 11/05/22 omeprazole 20 mg capsule,delayed 20 mg PO DAILY 10/30/22 11/05/22 release naproxen sodium 220 mg tablet 440 mg PO ONCE PRN Pain 11/01/22 11/05/22 (Aleve) ciprofloxacin HCl 500 mg tablet 500 mg PO BID 11/05/22 11/05/22 linezolid 600 mg tablet 600 mg PO BID 11/05/22 11/05/22 Previous Rx's Medication Instructions Recorded telmisartan 80 mg tablet 80 mg PO DAILY #30 tabs 10/12/22 tramadol 50 mg tablet 50 - 100 mg PO BID PRN pain #120 10/15/22 tabs amlodipine 2.5 mg tablet 2.5 mg PO DAILY #30 tabs 11/01/22 Results & Data (ED) Vital Signs Vital Signs - 24 hr 11/05/22 16:32 11/05/22 18:37 11/05/22 18:38 Temperature 36.4 C L Temperature Source Temporal Artery Scan Pulse Rate 64 63 Pulse Rate [Apical] 64 Respiratory Rate 18 20 20 Respiratory Effort / Characteristics Non-Labored Non-Labored Spontaneous Respiratory Depth Normal Normal Respiratory Pattern Regular Regular Blood Pressure 115/86 Blood Pressure [Right Arm] 210/83 H Blood Pressure Mean 95 Blood Pressure Mean [Right Arm] 125 Blood Pressure Position [Right Arm] Semi-fowlers Pulse Oximetry 100 100 100 Oxygen Delivery Method Room Air Room Air Room Air Sepsis Recent Fever Within 48 Hours No Sepsis New/Unexplained Change in Mental Status N/A Sepsis Action Taken by Nursing No Action Required 11/05/22 18:59 Temperature Temperature Source Pulse Rate 62 Pulse Rate [Apical] Respiratory Rate Respiratory Effort / Characteristics Respiratory Depth Respiratory Pattern Blood Pressure Blood Pressure [Right Arm] Blood Pressure Mean Blood Pressure Mean [Right Arm] Blood Pressure Position [Right Arm] Pulse Oximetry Oxygen Delivery Method Sepsis Recent Fever Within 48 Hours Sepsis New/Unexplained Change in Mental Status Sepsis Action Taken by Nursing Laboratory Data 11/05/22 17:13 11/05/22 17:13 Lab Results 11/05/22 11/05/22 11/05/22 Range/Units 17:13 17:13 17:13 WBC 6.52 (4.8-10.8) K/ul RBC 3.55 L (4.20-5.40) M/uL Hgb 9.4 L (12.0-16.0) g/dl Hct 29.0 L (37.0-47.0) % MCV 81.7 (80.0-100.0) fL MCH 26.5 (25.0-34.0) pg MCHC 32.4 (32.0-36.0) g/dL RDW Std Deviation 37.9 (36.4-46.3) fL RDW Coeff of Niki 12.9 (11.5-14.5) % Plt Count 250 (130-400) K/uL MPV 9.4 (9.4-12.4) fL Immature Gran % (Auto) 0.9 % Neut % (Auto) 73.2 % Lymph % (Auto) 14.6 % [place] % (Auto) 6.7 % Eos % (Auto) 3.8 % Baso % (Auto) 0.8 % Neut # (Auto) 4.77 (1.40-6.50) K/uL Lymph # (Auto) 0.95 L (1.2-3.4) K/uL [place] # (Auto) 0.44 (0.11-0.59) K/uL Eos # (Auto) 0.25 (0-0.50) K/uL Baso # (Auto) 0.05 (0-0.2) K/uL Immature Gran # (Auto) 0.06 (0.01-0.20) K/uL Sodium 135 L (136-145) mmol/L Potassium 3.4 L (3.5-5.1) mmol/L Chloride 103 (98-107) mmol/L Carbon Dioxide 24 (21-32) mmol/L Anion Gap 8 (3-11) BUN 7 (6-23) mg/dl Creatinine 0.48 L (0.6-1.2) mg/dl Est Cr Clr Drug Dosing Not Reportable Est GFR ( Amer) 111.2 ml/min Est GFR (Non-Af Amer) 96.0 ml/min BUN/Creatinine Ratio 14.6 (10-20) Glucose 97 (70-99(Fasting)) mg/dl Calcium 9.5 (8.6-10.3) mg/dl Magnesium 1.3 L (1.7-2.4) mg/dl Total Bilirubin 0.4 (0.2-1.0) mg/dl AST 15 (13-39) U/L ALT 7 (7-52) U/L Alkaline Phosphatase 74 (34-104) U/L Total Protein 6.9 (6.0-8.3) gm/dl Albumin 3.6 (3.4-5.0) gm/dl Globulin 3.3 (2.5-4.0) gm/dl Albumin/Globulin Ratio 1.1 (0.9-2) Procalcitonin < 0.05 (0-0.5) ng/ml SARS-CoV-2, RNA, NAAT (NEGATIVE) 11/05/22 Range/Units 18:39 WBC (4.8-10.8) K/ul RBC (4.20-5.40) M/uL Hgb (12.0-16.0) g/dl Hct (37.0-47.0) % MCV (80.0-100.0) fL MCH (25.0-34.0) pg MCHC (32.0-36.0) g/dL RDW Std Deviation (36.4-46.3) fL RDW Coeff of Niki (11.5-14.5) % Plt Count (130-400) K/uL MPV (9.4-12.4) fL Immature Gran % (Auto) % Neut % (Auto) % Lymph % (Auto) % [place] % (Auto) % Eos % (Auto) % Baso % (Auto) % Neut # (Auto) (1.40-6.50) K/uL Lymph # (Auto) (1.2-3.4) K/uL [place] # (Auto) (0.11-0.59) K/uL Eos # (Auto) (0-0.50) K/uL Baso # (Auto) (0-0.2) K/uL Immature Gran # (Auto) (0.01-0.20) K/uL Sodium (136-145) mmol/L Potassium (3.5-5.1) mmol/L Chloride (98-107) mmol/L Carbon Dioxide (21-32) mmol/L Anion Gap (3-11) BUN (6-23) mg/dl Creatinine (0.6-1.2) mg/dl Est Cr Clr Drug Dosing Est GFR ( Amer) ml/min Est GFR (Non-Af Amer) ml/min BUN/Creatinine Ratio (10-20) Glucose (70-99(Fasting)) mg/dl Calcium (8.6-10.3) mg/dl Magnesium (1.7-2.4) mg/dl Total Bilirubin (0.2-1.0) mg/dl AST (13-39) U/L ALT (7-52) U/L Alkaline Phosphatase (34-104) U/L Total Protein (6.0-8.3) gm/dl Albumin (3.4-5.0) gm/dl Globulin (2.5-4.0) gm/dl Albumin/Globulin Ratio (0.9-2) Procalcitonin (0-0.5) ng/ml SARS-CoV-2, RNA, NAAT NEGATIVE (NEGATIVE) Administered Medications Heparin Sodium (Porcine) (Heparin Sod 5,000 Unit/0.5 Ml Vial) 5,000 units SQ Q12 STEVEN Stop: 12/05/22 22:29 Last Admin: 11/05/22 23:10 Dose: 5,000 units Documented By: AMW Magnesium Sulfate/Dextrose (Magnesium Sulfate / D5w) 1 gm in 100 mls @ 50 mls/hr IV Q2H STEVEN Stop: 11/06/22 01:29 Last Admin: 11/05/22 21:30 Dose: 50 mls/hr Documented By: Infusion: 11/05/22 21:30 Dose: 50 mls/hr Documented By: Admin: 11/05/22 19:41 Dose: 50 mls/hr Documented By: JEFFERSON Pantoprazole Sodium 40 mg/ (Syringe) 10 mls @ 5 mls/min IV BID STEVEN Stop: 12/05/22 20:59 Last Admin: 11/05/22 21:30 Dose: 5 mls/min Documented By: Famotidine 20 mg/ Syringe 5 mls @ 2.5 mls/min IV BID STEVEN Stop: 12/05/22 22:29 Last Admin: 11/05/22 22:55 Dose: 2.5 mls/min Documented By: DUSTY Morphine Sulfate (Morphine Sulfate 2 Mg/Ml Carp) 1 mg IV Q3H PRN PRN Reason: Pain, breakthrough Stop: 11/19/22 22:29 Last Admin: 11/05/22 22:56 Dose: 1 mg Documented By: DUSTY Discontinued Medications Amlodipine Besylate (Amlodipine Besylate 5 Mg Tab) 5 mg PO NOW ONE Stop: 11/05/22 19:01 Last Admin: 11/05/22 19:41 Dose: 5 mg Documented By: JEFFERSON Linezolid (Zyvox) 600 mg in 300 mls @ 300 mls/hr IV NOW STA Stop: 11/05/22 19:29 Last Infusion: 11/05/22 21:32 Dose: 300 mls/hr Documented By: Infusion: 11/05/22 20:22 Dose: 0 mls/hr Documented By: Infusion: 11/05/22 20:22 Dose: 300 mls/hr Documented By: Admin: 11/05/22 19:51 Dose: 300 mls/hr Documented By: JEFFERSON Sodium Chloride (Nss) 500 mls @ 999 mls/hr IV .Q31M ONE Stop: 11/05/22 19:01 Last Infusion: 11/05/22 19:31 Dose: 0 mls/hr Documented By: Admin: 11/05/22 18:48 Dose: 999 mls/hr Documented By: AB Potassium Chloride (K Brad / Wtr) 10 meq in 100 mls @ 100 mls/hr IV Q1H STEVEN Stop: 11/05/22 22:29 Last Admin: 11/05/22 21:30 Dose: 100 mls/hr Documented By: Infusion: 11/05/22 20:42 Dose: 100 mls/hr Documented By: Admin: 11/05/22 19:42 Dose: 100 mls/hr Documented By: JEFFERSON Discharge Plan Visit Data Chief Complaint: Infection Stated Complaint: INFECTION AT INCISION SITE,NAUSEA,HEADACHE ED Provider: Td Moore Discharge Problem: 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
--- NOTE | 2022-11-05 18:55 | History & Physical Report ---
Date of Service November 05, 2022 Assessment & Plan (1) Nausea: Plan: Nausea/vomiting Potassium 3.4, repleted Magnesium 1.3, repleted ? Gastritis medicamentosa. Does have history of GERD on PPI. No epigastric tenderness to palpation. Surgical site in lower abdomen is healing, minimal surrounding tenderness which she reports is actually improved from prior Underwent CT 10/30 which showed expected postsurgical changes, gas and fluid collection typical for abscess which was drained, 1.7 cm pocket of fluid at the dermal surface which does not communicate with the larger collection, bladder wall thickening suggestive of cystitis See postop abscess treatment below for antibiotic recommendations Hypomagnesemic. Last EKG with QTc 413, will repeat and continue Zofran as long as QT is not prolonged Continue Protonix IV twice daily, Pepcid, Carafate for suspected gastritis Given liquid/loose diarrhea and multiple antibiotic courses we will also check C. difficile. If C. difficile is negative then may use Imodium for symptomatic care of diarrhea Last CT imaging did show evidence of cystitis, patient denies urinary symptoms. UA remains pending. Covered with antibiotics for abscess as noted below including pseudomonal coverage Hypertension Labile/fluctuating. 115/86 when calm, increased to over 200 with nausea/vomiting. Missed her morning amlodipine which is given. Admitted to PCU for IV antihypertensives if needed Continue telmisartan, atenolol daily. Patient did take these morning of admission Colovaginal fistula s/p repair, complicated by postoperative abscess - WBC 6.52, procal normal, no fever/chills/sweats No evidence of increasing abdominal pain or worsening abdominal wound. Will defer reimaging at this time as she is clinically improving and is not septic/toxic appearing. If abdominal pain worsens then we will reimage with contrast Treated at [facility] for colovesicular fistula Was seen 10/30 at [facility] for abscess, superficial postoperative abdominal wall. Drained and packed. Was discharged on Augmentin/Cipro, then switched to linezolid due to VRE Patient reports that she was switched to linezolid monotherapy and is not taking Cipro. This will not cover her Pseudomonas isolate, will admit on Cipro/linezolid at this time DVT PPx: Heparin Q12. Pt is with bilateral AKA CODE: Full Dispo: PCU Diet: Regular (2) Abscess: (3) S/P bilateral above knee amputation: (4) Hypertension: (5) GERD (gastroesophageal reflux disease): History of Present Illness Primary Care Provider: Malachi Michelle DO Yani Dodson is a 77-year-old female with past medical history of diverticulitis, colovaginal fistula, hypertension, GERD, bilateral above-knee amputation, and past medical admissions for hypertensive urgency with systolic pressures around 230s, and who has home blood pressures frequently around the 180s who underwent colovesicular fistula repair at [facility] 1 month ago which had a course complicated by incisional dehiscence which was packed, cultured, and patient was treated on Cipro/Zyvox. She presents to the ER with nausea and inability to tolerate her oral antibiotics. Yani is seen in the ER. She reports that she had surgery for a colovesicular fistula which is uncomplicated by superficial abscess. She reports that this drained spontaneously and then was packed. She reports drainage is more light, but was not able to get her packing changed this past week due to nausea. She was initially on ciprofloxacin and Augmentin, cultures returned for Pseudomonas and VRE and she was switched this past Saturday/3 days ago to Zyvox monotherapy. She reports she does not think that she was supposed to still take ciprofloxacin for the pseudomonal coverage. She reports that soon as she started taking Zyvox p.o. she had immediate stomach upset and progressive nausea and has not been able to tolerate anything to eat/drink. She has had 1 episode of a small amount of emesis without blood or melena today. Bowel movements have been very loose/liquid and brown. She reports her postoperative pain at her surgical site is actually improving and is mildly tender, but overall seems similar or slightly less then during her procedure. She does not have any lower abdominal pain at rest, endorses mild pain slowly improving on palpation around her surgical site. Her follow-up with [facility] was scheduled for this coming . She denies fever, chills, sweats. No lightheadedness or dizziness. No chest pain or chest pressure. Abd wound opened on its own. Continues to drain Last packed last , should e packed again but due to her nausea came to ER rather than out Dol[facility] galvez/ Dr. Michelle. Hx of GERD, was well controlled on omeprazole prior to starting xyvox BMs runny Hasn't eaten for a few days du eto nausea No pain in the abdomen or at the incision Took BP meds this AM: - Atenolol 50mg - Telmisartan 80mg AM - Amlodipine she DID NOT take this AM because she was nausue - No other bp meds No longer on augmentin + cipro --> stopped and switched xyvox F/u with [facility] next with Dr. Galvan +nausea, 1x vomiting. No bloody bms/no melena. started Xyvox Sat --> Xyvox imemdiately made her very very nauseus Medical History: Reviewed Medications: Reviewed Surgical History: Reviewed Family history: Reviewed Allergies: Reviewed Social History: No tobacco use. Glass of wine with dinner, no history of withdrawal/seizure Code Status: Full code Allergies Allergy/AdvReac Type Severity Reaction Status Date / Time adhesive tape Allergy Mild SKIN Verified 11/05/22 15:35 IRRITATION No Known Drug Allergies Allergy Unknown NKDA Verified 11/05/22 15:35 Home Medications Medication Instructions Recorded Confirmed Type dorzolamide 22.3 mg-timolol 6.8 1 drp OPB QAM 06/01/21 11/05/22 History mg/mL eye drops telmisartan 80 mg tablet 80 mg PO DAILY #30 tabs 10/12/22 11/05/22 Rx tramadol 50 mg tablet 50 - 100 mg PO BID PRN pain #120 10/15/22 11/05/22 Rx tabs amoxicillin 875 mg-potassium 1 tab PO BID #20 tabs 10/30/22 11/05/22 Rx clavulanate 125 mg tablet atenolol 50 mg tablet 50 mg PO DAILY 10/30/22 11/05/22 History omeprazole 20 mg capsule,delayed 20 mg PO DAILY 10/30/22 11/05/22 History release amlodipine 2.5 mg tablet 2.5 mg PO DAILY #30 tabs 11/01/22 11/05/22 Rx naproxen sodium 220 mg tablet 440 mg PO ONCE PRN 11/01/22 11/05/22 History (Aleve) Past Med/Surg History Medical History Acne rosacea Amputation leg, bilat 09/2019 after b/l femoral fractures Bilateral femoral fractures Diverticulitis large intestine GERD (gastroesophageal reflux disease) History of COVID-19 diagnosed 05/29/21--headache, sore throat, cough and congestion, then had blood in urine--states she currently has no symptoms History of recent blood transfusion (~06/28/21) Morbid obesity with BMI of 45.0-49.9, adult Osteoarthritis Polio Diagnosed in the 1950s. Ambulatory with bracing until 2010, when shoulder pain restricted her to the motorized wheelchair. Surgical History H/O bilateral breast reduction surgery History of above-knee amputation of both lower extremities (~09/17/19) @ [facility] Dr. Hanna History of bilateral cataract extraction History of carpal tunnel release LEFT History of colonoscopy (~06/2021) Negative, no further screening recommended History of esophagogastroduodenoscopy (EGD) (~06/2021) Negative History of hysterectomy History of surgery CALCIUM DEPOSITS REMOVED 1956 Hx of cholecystectomy Family History Mother Factor V Leiden Breast cancer Myocardial infarction Hypertension Family/Other Factor V Leiden nephew Father Myocardial infarction Stroke Other Cancer No family history of adverse response to anesthesia Denies family history of Ovarian cancer Prostate cancer Diabetes Lung cancer Colorectal cancer Lung disease Social History Smoking Status: Never smoker Second Hand Exposure: Yes (when she was younger); Do You Dip or Chew Tobacco: No; Hx Alcohol Use: Yes Alcohol type: wine and hard liquor Alcohol Intake Frequency: 4 or More x per/Week Hx Substance Use: No Preferred Language: Mongolian Communication Ability: Effective Visual Impairment: No Limitations Hearing Ability: Normal Derrick Worker Required: No Beliefs That Will Affect Care: None marital status: Single Current Living Situation: Alone current occupational status: retired How many Children do You have: 0 Feels Safe at Home: Yes Childhood Exposure to Second-Hand Smoke: Yes caffeine: Yes Dental Care, Regularly: Yes Physical Activity Frequency: Does not Exercise Seatbelt Use: always Sunscreen Use: No Assistive Devices: Scooter/Electric Scooter and Other Review of Systems Review of Systems: All systems reviewed & are unremarkable except as noted in HPI & below Physical Exam Physical Exam: General: A&Ox3. NAD. Cooperative. HEENT: Atraumatic, normocephalic. Vision/hearing grossly intact Pulm: CTAB A&P. -wheezes, -rales, -rhonchi. Symmetrical chest rise. No increased work of breathing. No respiratory distress. Cardiac: RRR, -mrg. Radial pulses intact and symmetrical. Abdominal: Mild tenderness around her right lower abdominal surgical site, small open area of dehiscence with packing in place draining serous fluid without purulence. No surrounding erythema/warmth. No rebound tenderness. Other lap sites intact, well-healing Extremities: Bilateral AKA. Stumps old, well-healed. Results & Data Results & Data Vital Signs (Past 12 Hours) Vital Signs Temp Pulse Pulse Resp BP BP Pulse Ox 11/05/22 18:38 63 20 100 11/05/22 18:37 64 20 210/83 H 100 11/05/22 16:32 36.4 C L 64 18 115/86 100 O2 Del Method 11/05/22 18:38 Room Air 11/05/22 18:37 Room Air 11/05/22 16:32 Room Air PG Care Time/CCT Total # of Minutes Spent Total Time Spent with Patient: Total time spent is greater than 50% in coordination of care (as documented) at patient's floor/unit and/or counseling patient: Coding Level of Care Code 68536 INT INP/OBS CARE 2/55MIN Diagnoses Nausea R11.0 Abscess L02.91 S/P bilateral above knee amputation Z89.611; Z89.612 Hypertension I10 Hypertension type: unspecified GERD (gastroesophageal reflux disease) K21.9 (4) Hypertension Hypertension type: unspecified Qualified Code(s): I10 - Essential (primary) hypertension
[2022-11-05] MEDS ORDERED: amLODIPine BESYLATE 5 MG TAB PO ONE (19:00)
[2022-11-05] MEDS ORDERED: ALUMINUM/MAGNESIUM SUSP 30 ML UDC PO PRN (19:11)
[2022-11-05] MEDS ORDERED: ONDANSETRON INJ 2 MG/ML 2 ML VIAL IV PRN (19:21)
[2022-11-05] MEDS: MAGNESIUM SULFATE / D5W 1 GM/100 ML BAG IV SCH ×3 (19:41→23:49)
[2022-11-05] MEDS: POTASSIUM CHLORIDE / WTR 10 MEQ/100 ML PLCT IV SCH ×3 (19:42→23:48)
[2022-11-05 21:12] LABS: Appearance Urine Clear (Clear); Bilirubin Urine Negative (Negative); Blood Urine Negative (Negative); Color Urine Yellow; Glucose Urine UA Negative (Negative); Ketones Urine 1+ (Negative); Leukocyte Esterase Urine Negative (Negative); Nitrite Urine Negative (Negative); Protein Urine Negative (Negative); Specific Gravity Urine 1.016 (1.000-1.030); Urobilinogen Urine Negative (Negative); pH Urine 5.5 (4.5-7.5)
[2022-11-05] MEDS: PANTOprazole 40 MG in SYRINGE 0 ML IV SCH (21:30)
[2022-11-05] MEDS ORDERED: ACETAMINOPHEN 325 MG TAB PO PRN (22:30)
[2022-11-05] MEDS: FAMOTIDINE 20 MG in SYRINGE 3 ML IV SCH (22:55)
[2022-11-05] MEDS: MoRPHine SULFATE 2 MG/ML CARP IV PRN (22:56)
[2022-11-05] MEDS: HEPARIN SOD 5,000 UNIT/0.5 ML VIAL SQ SCH (23:10)
[2022-11-06] MEDS: CIPROFLOXACIN / D5W 400 MG/200 ML BAG IV SCH ×2 (01:32→13:02)
[2022-11-06 07:12] LABS: Calcium 8.6 mg/dl (8.6-10.3); Creatinine Clr Calc Pharmacy 96.5 ml/min; Est GFR (African American) 118.1 ml/min; Est GFR (Non-African American) 101.9 ml/min; Magnesium 2.2 mg/dl (1.7-2.4); Potassium 3.7 mmol/L (3.5-5.1)
[2022-11-06] MEDS: DORZOLAMIDE/TIMOLOL 22.3/6.8MG/ML 10 ML BTL OPB SCH (07:37)
[2022-11-06] MEDS: PANTOprazole 40 MG in SYRINGE 0 ML IV SCH ×2 (07:37→20:02)
[2022-11-06] MEDS: LOSARTAN POTASSIUM 50 MG TAB PO SCH (07:38)
[2022-11-06] MEDS: ATENOLOL 50 MG TABLET PO SCH (07:38)
[2022-11-06] MEDS: amLODIPine BESYLATE 5 MG TAB PO SCH (07:38)
[2022-11-06] MEDS: FAMOTIDINE 20 MG in SYRINGE 3 ML IV SCH ×2 (07:39→20:18)
[2022-11-06] MEDS: HEPARIN SOD 5,000 UNIT/0.5 ML VIAL SQ SCH ×2 (07:40→20:02)
[2022-11-06] MEDS: MoRPHine SULFATE 2 MG/ML CARP IV PRN ×2 (07:48→21:12)
[2022-11-06 07:58] LABS: Basophils # (auto) 0.04 K/uL (0-0.2); Basophils % (auto) 0.8 %; Eosinophils # (auto) 0.25 K/uL (0-0.50); Eosinophils % (auto) 5.1 %; Hematocrit (blood only) 27.3 % (37.0-47.0); Hemoglobin 8.8 g/dl (12.0-16.0); Immature Granulocytes # (auto) 0.04 K/uL (0.01-0.20); Immature Granulocytes % (auto) 0.8 %; Lymphocytes # (auto) 0.62 K/uL (1.2-3.4); Lymphocytes % (auto) 12.8 %; Mean Corpuscular Hemoglobin 26.3 pg (25.0-34.0); Mean Corpuscular Hgb Conc 32.2 g/dL (32.0-36.0); Mean Corpuscular Volume 81.7 fL (80.0-100.0); Mean Platelet Volume 9.3 fL (9.4-12.4); Monocytes % (auto) 8.2 %; Neutrophils # (auto) 3.51 K/uL (1.40-6.50); Neutrophils % (auto) 72.3 %; Platelet Count 199 K/uL (130-400); RDW Standard Deviation 37.7 fL (36.4-46.3); Red Blood Count 3.34 M/uL (4.20-5.40); White Blood Count 4.86 K/ul (4.8-10.8)
[2022-11-06] MEDS: LINEZOLID 600 MG/300 ML D5W IV SCH (08:33)
--- NOTE | 2022-11-06 11:36 | Electrocardiogram Report ---
Test Reason : Blood Pressure : / mmHG Vent. Rate : 062 BPM Atrial Rate : 062 BPM P-R Int : 186 ms QRS Dur : 086 ms QT Int : 412 ms P-R-T Axes : 037 010 021 degrees QTc Int : 418 ms Normal sinus rhythm Normal ECG When compared with ECG of 01-JUN-2021 20:51, HR has decreased by 26 bpm Otherwise no significant change Confirmed by Jesus Juan ([id number]) on 11/06/2022 11:36:15 AM Referred By: Dolores Tolbert Confirmed By:Jesus Juan
[2022-11-06] MEDS: LINEZOLID 600 MG/300 ML BAG IV SCH (21:12)
[2022-11-07] MEDS: CIPROFLOXACIN / D5W 400 MG/200 ML BAG IV SCH ×2 (02:13→14:02)
[2022-11-07 07:36] LABS: Basophils # (auto) 0.03 K/uL (0-0.2); Basophils % (auto) 0.7 %; Eosinophils # (auto) 0.31 K/uL (0-0.50); Eosinophils % (auto) 6.8 %; Hematocrit (blood only) 26.5 % (37.0-47.0); Hemoglobin 8.6 g/dl (12.0-16.0); Immature Granulocytes # (auto) 0.02 K/uL (0.01-0.20); Immature Granulocytes % (auto) 0.4 %; Lymphocytes # (auto) 0.63 K/uL (1.2-3.4); Lymphocytes % (auto) 13.8 %; Mean Corpuscular Hemoglobin 26.6 pg (25.0-34.0); Mean Corpuscular Hgb Conc 32.5 g/dL (32.0-36.0); Mean Platelet Volume 9.5 fL (9.4-12.4); Monocytes # (auto) 0.35 K/uL (0.11-0.59); Monocytes % (auto) 7.6 %; Neutrophils # (auto) 3.24 K/uL (1.40-6.50); Neutrophils % (auto) 70.7 %; Platelet Count 161 K/uL (130-400); RDW Coefficient of Variation 13.2 % (11.5-14.5); RDW Standard Deviation 38.8 fL (36.4-46.3); Red Blood Count 3.23 M/uL (4.20-5.40); White Blood Count 4.58 K/ul (4.8-10.8)
[2022-11-07] MEDS: LOSARTAN POTASSIUM 50 MG TAB PO SCH (08:49)
[2022-11-07] MEDS: DORZOLAMIDE/TIMOLOL 22.3/6.8MG/ML 10 ML BTL OPB SCH (08:49)
[2022-11-07] MEDS: amLODIPine BESYLATE 5 MG TAB PO SCH (08:49)
[2022-11-07] MEDS: ATENOLOL 50 MG TABLET PO SCH (08:49)
[2022-11-07] MEDS: HEPARIN SOD 5,000 UNIT/0.5 ML VIAL SQ SCH ×2 (08:50→21:14)
[2022-11-07] MEDS: FAMOTIDINE 20 MG in SYRINGE 3 ML IV SCH ×2 (08:50→21:16)
[2022-11-07] MEDS: LINEZOLID 600 MG/300 ML BAG IV SCH ×2 (08:50→21:15)
[2022-11-07] MEDS: PANTOprazole 40 MG in SYRINGE 0 ML IV SCH ×2 (08:50→21:15)
[2022-11-07 09:36] LABS: BUN Creatinine Ratio 11.3 (10-20); Calcium 8.8 mg/dl (8.6-10.3); Creatinine Clr Calc Pharmacy 72.9 ml/min; Est GFR (African American) 107.6 ml/min; Est GFR (Non-African American) 92.9 ml/min; Potassium 3.7 mmol/L (3.5-5.1)
[2022-11-07] MEDS ORDERED: HYDROCODONE/ACETAMOPHEN 5/325MG TAB PO PRN (12:16)
[2022-11-07] MEDS ORDERED: amLODIPine BESYLATE 5 MG TAB PO STA (12:16)
[2022-11-07] MEDS ORDERED: oxyCODONE HCL IR 5 MG TAB (IMMEDIATE RELEASE) PO STA (12:30)
[2022-11-07] MEDS: LINEZOLID 600 MG/300 ML D5W IV SCH (16:19)
[2022-11-07] MEDS: oxyCODONE HCL IR 5 MG TAB (IMMEDIATE RELEASE) PO PRN (21:49)
[2022-11-08] MEDS: CIPROFLOXACIN / D5W 400 MG/200 ML BAG IV SCH ×2 (01:54→13:54)
[2022-11-08] MEDS: oxyCODONE HCL IR 5 MG TAB (IMMEDIATE RELEASE) PO PRN ×3 (04:10→22:05)
[2022-11-08 07:05] LABS: Basophils # (auto) 0.03 K/uL (0-0.2); Basophils % (auto) 0.6 %; Eosinophils # (auto) 0.36 K/uL (0-0.50); Eosinophils % (auto) 7.7 %; Hematocrit (blood only) 26.4 % (37.0-47.0); Hemoglobin 8.6 g/dl (12.0-16.0); Immature Granulocytes # (auto) 0.02 K/uL (0.01-0.20); Immature Granulocytes % (auto) 0.4 %; Lymphocytes % (auto) 12.8 %; Mean Corpuscular Hemoglobin 26.3 pg (25.0-34.0); Mean Corpuscular Hgb Conc 32.6 g/dL (32.0-36.0); Mean Corpuscular Volume 80.7 fL (80.0-100.0); Mean Platelet Volume 9.6 fL (9.4-12.4); Monocytes # (auto) 0.35 K/uL (0.11-0.59); Monocytes % (auto) 7.4 %; Neutrophils # (auto) 3.34 K/uL (1.40-6.50); Neutrophils % (auto) 71.1 %; Platelet Count 148 K/uL (130-400); RDW Coefficient of Variation 13.6 % (11.5-14.5); RDW Standard Deviation 38.7 fL (36.4-46.3); Red Blood Count 3.27 M/uL (4.20-5.40)
[2022-11-08 07:21] LABS: Calcium 8.8 mg/dl (8.6-10.3); Creatinine Clr Calc Pharmacy 77.3 ml/min; Est GFR (African American) 109.7 ml/min; Est GFR (Non-African American) 94.7 ml/min; Potassium 3.6 mmol/L (3.5-5.1)
[2022-11-08] MEDS: LOSARTAN POTASSIUM 50 MG TAB PO SCH (09:30)
[2022-11-08] MEDS: ATENOLOL 50 MG TABLET PO SCH (09:30)
[2022-11-08] MEDS: DORZOLAMIDE/TIMOLOL 22.3/6.8MG/ML 10 ML BTL OPB SCH (09:31)
[2022-11-08] MEDS: PANTOprazole 40 MG in SYRINGE 0 ML IV SCH ×2 (09:32→21:07)
[2022-11-08] MEDS: FAMOTIDINE 20 MG in SYRINGE 3 ML IV SCH ×2 (10:00→21:07)
[2022-11-08] MEDS: LINEZOLID 600 MG/300 ML BAG IV SCH ×2 (10:00→21:07)
[2022-11-08] MEDS: HEPARIN SOD 5,000 UNIT/0.5 ML VIAL SQ SCH ×2 (10:05→21:07)
--- NOTE | 2022-11-08 21:56 | Hospitalist Progress Note ---
Date of Service November 06, 2022 Assessment & Plan (1) Nausea: Plan: Nausea/vomiting Potassium 3.4, repleted Magnesium 1.3, repleted ? Gastritis medicamentosa. Does have history of GERD on PPI. No epigastric tenderness to palpation. Surgical site in lower abdomen is healing, minimal surrounding tenderness which she reports is actually improved from prior Underwent CT 10/30 which showed expected postsurgical changes, gas and fluid collection typical for abscess which was drained, 1.7 cm pocket of fluid at the dermal surface which does not communicate with the larger collection, bladder wall thickening suggestive of cystitis See postop abscess treatment below for antibiotic recommendations Hypomagnesemic. Last EKG with QTc 413, will repeat and continue Zofran as long as QT is not prolonged Continue Protonix IV twice daily, Pepcid, Carafate for suspected gastritis Given liquid/loose diarrhea and multiple antibiotic courses we will also check C. difficile. If C. difficile is negative then may use Imodium for symptomatic care of diarrhea Last CT imaging did show evidence of cystitis, patient denies urinary symptoms. UA remains pending. Covered with antibiotics for abscess as noted below including pseudomonal coverage Hypertension Labile/fluctuating. 115/86 when calm, increased to over 200 with nausea/vomiting. Missed her morning amlodipine which is given. Admitted to PCU for IV antihypertensives if needed Continue telmisartan, atenolol daily. Patient did take these morning of admission Colovaginal fistula s/p repair, complicated by postoperative abscess - WBC 6.52, procal normal, no fever/chills/sweats No evidence of increasing abdominal pain or worsening abdominal wound. Will defer reimaging at this time as she is clinically improving and is not septic/toxic appearing. 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 Drained and packed. Was discharged on Augmentin/Cipro, then switched to linezolid due to VRE Patient reports that she was switched to linezolid monotherapy and is not taking Cipro. This will not cover her Pseudomonas isolate, will admit on Cipro/linezolid at this time DVT PPx: Heparin Q12. Pt is with bilateral AKA CODE: Full Dispo: PCU Diet: Regular (2) Abscess: (3) S/P bilateral above knee amputation: (4) Hypertension: (5) GERD (gastroesophageal reflux disease): Admission and Anticipated Discharge Date Admission Date: November 05, 2022 Subjective Late entry (technical) for DOS 11/06/2022. Hospitalist history and physical reviewed in details obtained from patient. When this first hospital day patient is seen in room 236 and antibiotic therapy with culture and sensitivity obtained from wound last night. Patient was seen by emergency department and general surgery to assess wound at bedside at which time the wound drained nicely and was packed. Insomuch as she did not tolerate the oral antibiotic Zyvox she was placed on IV antibiotics. The wound is suprapubic and is status post repair of a bowel bladder fistula at [facility] in [place]. Urology is Dr. Marily Galvan at [facility]. Wound was glued, Dermabond. Leakage noted by patient. Purulence extruded and cultured in ED. Antibiotics on board intravenously. Review of Systems Review of Systems: All systems reviewed & are unremarkable except as noted in HPI & below Constitutional: + problem reported Respiratory: No SOB Cardiovascular: Additional Comments: No chest pain Gastrointestinal: No GI complaints Genitourinary: No complaints Neurologic: No neurologic complaints Psychiatric: No psychiatric complaints Physical Exam Physical Exam: Normocephalic atraumatic Constitutional: WD/WN, vitals as above Eyes: PERRLA EOMI ENMT: external ear and nose normal, oropharynx normal Neck: No JVD Respiratory: Lungs clear Cardiovascular: Heart regular negative S3 murmur rub Gastrointestinal (Abdomen): Inspection/Auscultation: normal bowel sounds Skin: Warm and dry Results & Data Results & Data Vital Signs (Past 12 Hours) Vital Signs Blood pressure 186/83 code stroke code stroke 1 PG Care Time/CCT Total # of Minutes Spent Total Time Spent with Patient: Total time spent is greater than 50% in coordination of care (as documented) at patient's floor/unit and/or counseling patient: Coding Level of Care Code 08830 SUB INP/OBS CARE 3/50MIN Diagnoses Nausea R11.0 Abscess L02.91 S/P bilateral above knee amputation Z89.611; Z89.612 Hypertension I10 Hypertension type: unspecified GERD (gastroesophageal reflux disease) K21.9 Time Spent (min) 50 (4) Hypertension Hypertension type: unspecified Qualified Code(s): I10 - Essential (primary) hypertension
--- NOTE | 2022-11-08 22:47 | Hospitalist Progress Note ---
Date of Service October Assessment & Plan (1) Nausea: Plan: Nausea/vomiting Potassium 3.4, repleted Magnesium 1.3, repleted ? Gastritis medicamentosa. Does have history of GERD on PPI. No epigastric tenderness to palpation. Surgical site in lower abdomen is healing, minimal surrounding tenderness which she reports is actually improved from prior Underwent CT 10/30 which showed expected postsurgical changes, gas and fluid collection typical for abscess which was drained, 1.7 cm pocket of fluid at the dermal surface which does not communicate with the larger collection, bladder wall thickening suggestive of cystitis See postop abscess treatment below for antibiotic recommendations Hypomagnesemic. Last EKG with QTc 413, will repeat and continue Zofran as long as QT is not prolonged Continue Protonix IV twice daily, Pepcid, Carafate for suspected gastritis Given liquid/loose diarrhea and multiple antibiotic courses we will also check C. difficile. If C. difficile is negative then may use Imodium for symptomatic care of diarrhea Last CT imaging did show evidence of cystitis, patient denies urinary symptoms. UA remains pending. Covered with antibiotics for abscess as noted below including pseudomonal coverage Hypertension Labile/fluctuating. 115/86 when calm, increased to over 200 with nausea/vomiting. Missed her morning amlodipine which is given. Admitted to PCU for IV antihypertensives if needed Continue telmisartan, atenolol daily. Patient did take these morning of admission Colovaginal fistula s/p repair, complicated by postoperative abscess - WBC 6.52, procal normal, no fever/chills/sweats No evidence of increasing abdominal pain or worsening abdominal wound. Will defer reimaging at this time as she is clinically improving and is not septic/toxic appearing. 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 Drained and packed. Was discharged on Augmentin/Cipro, then switched to linezolid due to VRE Patient reports that she was switched to linezolid monotherapy and is not taking Cipro. This will not cover her Pseudomonas isolate, will admit on Cipro/linezolid at this time DVT PPx: Heparin Q12. Pt is with bilateral AKA CODE: Full Dispo: PCU Diet: Regular (2) Abscess: (3) S/P bilateral above knee amputation: (4) Hypertension: (5) GERD (gastroesophageal reflux disease): Admission and Anticipated Discharge Date Admission Date: November 05, 2022 Subjective Late entry technical for date of service November 07, 2022 History and physical reviewed and further information obtained. Phantom pain of bilateral lower extremities is an issue usually resolved with tramadol. Physical Exam Physical Exam: Vital signs stable Constitutional: WD/WN, vitals as above Eyes: PERRL, conjunctivae normal, anicteric sclerae ENMT: ENT negative Neck: trachea midline, no thyromegaly Respiratory: Lungs clear Cardiovascular: RRR, no murmur, no edema Gastrointestinal (Abdomen): Positive bowel sounds soft Skin: Warm and dry Neurologic: Nonfocal Results & Data Results & Data Vital Signs (Past 12 Hours) Vital Signs PG Care Time/CCT Total # of Minutes Spent Total Time Spent with Patient: Total time spent is greater than 50% in coordination of care (as documented) at patient's floor/unit and/or counseling patient: Coding Level of Care Code 53435 SUB INP/OBS CARE 2/35MIN Diagnoses Nausea R11.0 Abscess L02.91 S/P bilateral above knee amputation Z89.611; Z89.612 Hypertension I10 Hypertension type: unspecified GERD (gastroesophageal reflux disease) K21.9 Time Spent (min) 35 (4) Hypertension Hypertension type: unspecified Qualified Code(s): I10 - Essential (primary) hypertension
--- NOTE | 2022-11-08 23:00 | Hospitalist Progress Note ---
Date of Service November 08, 2022 Assessment & Plan Admission and Anticipated Discharge Date Admission Date: November 05, 2022 Subjective [id number] session and patient seen with primary nurse Dressing of suprapubic wound removed including a very small amount of packing and a 4 x 4 2 x 2 on top. There is no further active drainage from the wound. The dehiscence of the left lateral most side of the wound is 1.5 cm max Packing is not required again. 4 x 4's are placed. IV antibiotic therapy to continue through tomorrow. Then Cipro p.o. and ampicillin or Augmentin p.o. will be continued for 10 days. Consult general surgery for second opinion on the suprapubic wound and duration of p.o. antibiotic therapy. Physical Exam Constitutional: WD/WN, vitals as above Eyes: PERRL, conjunctivae normal, anicteric sclerae ENMT: external ear and nose normal, oropharynx normal Neck: trachea midline, no thyromegaly Cardiovascular: RRR, no murmur, no edema Gastrointestinal (Abdomen): Inspection/Auscultation: normal bowel sounds Results & Data Results & Data Vital Signs (Past 12 Hours) Vital Signs Temp Pulse Pulse Pulse Resp BP BP 11/08/22 20:00 11/08/22 19:36 36.8 C 62 18 149/87 H 11/08/22 16:01 62 11/08/22 14:58 36.8 C 57 L 16 159/62 H 11/08/22 11:55 37 C 60 18 165/62 H Pulse Ox O2 Del Method 11/08/22 20:00 Room Air 11/08/22 19:36 98 Room Air 11/08/22 16:01 11/08/22 14:58 99 Room Air 11/08/22 11:55 Room Air PG Care Time/CCT Total # of Minutes Spent Total Time Spent with Patient: Total time spent is greater than 50% in coordination of care (as documented) at patient's floor/unit and/or counseling patient: Coding Level of Care Code 14367 SUB INP/OBS CARE 3/50MIN Diagnoses Time Spent (min) 50
[2022-11-09] MEDS: CIPROFLOXACIN / D5W 400 MG/200 ML BAG IV SCH ×2 (01:51→13:13)
[2022-11-09] MEDS: oxyCODONE HCL IR 5 MG TAB (IMMEDIATE RELEASE) PO PRN ×2 (04:00→14:08)
[2022-11-09] MEDS: ATENOLOL 50 MG TABLET PO SCH (07:41)
[2022-11-09] MEDS: LOSARTAN POTASSIUM 50 MG TAB PO SCH (07:41)
[2022-11-09] MEDS: HEPARIN SOD 5,000 UNIT/0.5 ML VIAL SQ SCH (07:42)
[2022-11-09] MEDS: DORZOLAMIDE/TIMOLOL 22.3/6.8MG/ML 10 ML BTL OPB SCH (07:42)
[2022-11-09] MEDS: LINEZOLID 600 MG/300 ML BAG IV SCH (09:17)
[2022-11-09] MEDS: FAMOTIDINE 20 MG in SYRINGE 3 ML IV SCH (09:17)
[2022-11-09] MEDS: PANTOprazole 40 MG in SYRINGE 0 ML IV SCH (09:17)
--- NOTE | 2022-11-09 09:37 | Surgery Consultation ---
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 Galvan. She has been doing fairly well, but did develop an area in one of her incisions that was draining pus. She presented to our ER on 10/30 where she had a CT a/p that revealed postoperative changes from a sigmoid colon resection with a colocolonic anastomosis. In addition it showed a collection in the anterior wall of her right pelvis which measured 8.5 x 2.5 x 8.5 cm and was concerning for abscess. Our services performed a bedside I&D which performed and fluid was sent for cultures and wound was packed. She was sent home on abx and instructed to follow up with her colorectal surgeon in short order. Abx regimen was adjusted as wound was growing VRE and pseudomonas. She represented to our ER on 11/05 with complaints of nausea/vomiting with inability to tolerate abx. Today we have been consulted for evaluation of wound and recommendations on abx moving forward. Wound is healing well without any signs of active infection or abscess We will continue p.o. antibiotics on discharge for total of 10 days She has follow-up with her colorectal surgeon on Saturday which I encouraged her to keep Surgical sign off at this time, please call with any questions or concerns History of Present Illness Attending Physician: Perfecto March, DO History of Present Illness This is a 77yF with a PMH of HTN, GERD, history of colovesical fistula where she underwent a robotic assisted low anterior resection at [facility] in 09/18/[address] Galvan. She has been doing fairly well, but did develop an area in one of her incisions that was draining pus. She presented to our ER on 10/30 where she had a CT a/p that revealed postoperative changes from a sigmoid colon resection with a colocolonic anastomosis. In addition it showed a collection in the anterior wall of her right pelvis which measured 8.5 x 2.5 x 8.5 cm and was concerning for abscess. Our services performed a bedside I&D which performed and fluid was sent for cultures and wound was packed. She was sent home on abx and instructed to follow up with her colorectal surgeon in short order. Abx regimen was adjusted as wound was growing VRE and pseudomonas. She represented to our ER on 11/05 with complaints of nausea/vomiting with inability to tolerate abx. Today we have been consulted for evaluation of wound and recommendations on abx moving forward. Allergies Allergy/AdvReac Type Severity Reaction Status Date / Time adhesive tape Allergy Mild SKIN Verified 11/05/22 15:35 IRRITATION No Known Drug Allergies Allergy Unknown NKDA Verified 11/05/22 15:35 Home Medications Medication Instructions Recorded Confirmed Type dorzolamide 22.3 mg-timolol 6.8 1 drp OPB QAM 06/01/21 11/05/22 History mg/mL eye drops telmisartan 80 mg tablet 80 mg PO DAILY #30 tabs 10/12/22 11/05/22 Rx tramadol 50 mg tablet 50 - 100 mg PO BID PRN pain #120 10/15/22 11/05/22 Rx tabs atenolol 50 mg tablet 50 mg PO DAILY 10/30/22 11/05/22 History omeprazole 20 mg capsule,delayed 20 mg PO DAILY 10/30/22 11/05/22 History release amlodipine 2.5 mg tablet 2.5 mg PO DAILY #30 tabs 11/01/22 11/05/22 Rx naproxen sodium 220 mg tablet 440 mg PO ONCE PRN Pain 11/01/22 11/05/22 History (Aleve) ciprofloxacin HCl 500 mg tablet 500 mg PO BID 11/05/22 11/05/22 History linezolid 600 mg tablet 600 mg PO BID 11/05/22 11/05/22 History Patient History Medical History Acne rosacea Amputation leg, bilat 09/2019 after b/l femoral fractures Bilateral femoral fractures Diverticulitis large intestine GERD (gastroesophageal reflux disease) History of COVID-19 diagnosed 05/29/21--headache, sore throat, cough and congestion, then had blood in urine--states she currently has no symptoms History of recent blood transfusion (~06/28/21) Morbid obesity with BMI of 45.0-49.9, adult Osteoarthritis Polio Diagnosed in the 1950s. Ambulatory with bracing until 2010, when shoulder pain restricted her to the motorized wheelchair. Surgical History H/O bilateral breast reduction surgery History of above-knee amputation of both lower extremities (~09/17/19) @ [facility] Dr. Hanna History of bilateral cataract extraction History of carpal tunnel release LEFT History of colonoscopy (~06/2021) Negative, no further screening recommended History of esophagogastroduodenoscopy (EGD) (~06/2021) Negative History of hysterectomy History of surgery CALCIUM DEPOSITS REMOVED 1956 Hx of cholecystectomy Family History Mother Factor V Leiden Breast cancer Myocardial infarction Hypertension Family/Other Factor V Leiden nephew Father Myocardial infarction Stroke Other Cancer No family history of adverse response to anesthesia Denies family history of Ovarian cancer Prostate cancer Diabetes Lung cancer Colorectal cancer Lung disease Social History Smoking Status: Never smoker Second Hand Exposure: No; Do You Dip or Chew Tobacco: No; Hx Alcohol Use: Yes Alcohol type: wine Alcohol Intake Frequency: 4 or More x per/Week Hx Substance Use: No Preferred Language: [place]an Communication Ability: Effective Visual Impairment: No Limitations Hearing Ability: Normal Final Armature Tester Required: No Beliefs That Will Affect Care: None marital status: Single Current Living Situation: Alone current occupational status: retired How many Children do You have: 0 Other Information That Helps Us Care for You: No Feels Safe at Home: Yes Safety Concerns: Feels Safe At This Time Childhood Exposure to Second-Hand Smoke: Yes caffeine: Yes Dental Care, Regularly: Yes Physical Activity Frequency: Does not Exercise Seatbelt Use: always Sunscreen Use: No Assistive Devices: Scooter/Electric Scooter and Wheelchair Review of Systems Constitutional: no fever and no chills Eyes: no blind spots and no worsening vision Ear, Nose, Mouth, Throat: no ear pain and no hearing loss Respiratory: no cough and no dyspnea Cardiovascular: no chest pain and no dyspnea on exertion Gastrointestinal: no abdominal pain, no nausea, no vomiting, no change in stools and no constipation Genitourinary: no dysuria and no difficulty urinating Musculoskeletal: no back pain and no neck pain Integumentary: + wounds; no skin ulcer and no erythema Neurologic: no headache(s) and no memory loss Psychiatric: no behavioral changes and no depression Physical Exam Constitutional: WD/WN, vitals as above Eyes: PERRL, conjunctivae normal, anicteric sclerae ENMT: external ear and nose normal, oropharynx normal Neck: trachea midline, no thyromegaly Respiratory: normal respiratory effort, lungs clear to auscultation Cardiovascular: RRR, no murmur, no edema Gastrointestinal (Abdomen): Inspection/Auscultation: abdomen normal to inspection; abdomen not distended Percussion/Palpation: abdomen soft; abdomen nontender, no guarding and no hernia Right lower quadrant incision with medial skin dehiscence from previous I&D site, no erythema, scant serosanguinous drainage, non-tender Musculoskeletal: no cyanosis or clubbing, extremities motor strength 5/5 Skin: no rashes, warm and dry Neurologic: PERRL, EOMI, accommodation nl, no face palsy, no dysarthria Psychiatric: A+Ox3, euthymic affect Results & Data Vital Signs (Past 12 Hours) Vital Signs Temp Pulse Pulse Resp BP BP Pulse Ox 11/09/22 08:00 60 11/09/22 07:39 37.1 C 66 20 180/73 H 175/72 H 100 11/09/22 03:20 36.5 C 64 18 166/75 H 100 11/08/22 23:00 64 11/08/22 22:59 36.6 C 65 20 137/53 L 99 O2 Del Method 11/09/22 08:00 11/09/22 07:39 Room Air 11/09/22 03:20 Room Air 11/08/22 23:00 11/08/22 22:59 Room Air PG Care Time/CCT Total # of Minutes Spent Total Time Spent with Patient: Total time spent is greater than 50% in coordination of care (as documented) at patient's floor/unit and/or counseling patient: Coding Level of Care Code 29703 INT INP/OBS CARE 2/55MIN Diagnoses 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
--- NOTE | 2022-11-22 20:40 | Discharge Summary ---
Date of Service October Admission HPI Per Admitting Provider Yani Dodson is a 77-year-old female with past medical history of diverticulitis, colovaginal fistula, hypertension, GERD, bilateral above-knee amputation, and past medical admissions for hypertensive urgency with systolic pressures around 230s, and who has home blood pressures frequently around the 180s who underwent colovesicular fistula repair at [facility] [place] 1 month ago which had a course complicated by incisional dehiscence which was packed, cultured, and patient was treated on Cipro/Zyvox. She presents to the ER with nausea and inability to tolerate her oral antibiotics. Yani is seen in the ER. She reports that she had surgery for a colovesicular fistula which is uncomplicated by superficial abscess. She reports that this drained spontaneously and then was packed. She reports drainage is more light, but was not able to get her packing changed this past week due to nausea. She was initially on ciprofloxacin and Augmentin, cultures returned for Pseudomonas and VRE and she was switched this past Saturday/3 days ago to Zyvox monotherapy. She reports she does not think that she was supposed to still take ciprofloxacin for the pseudomonal coverage. She reports that soon as she started taking Zyvox p.o. she had immediate stomach upset and progressive nausea and has not been able to tolerate anything to eat/drink. She has had 1 episode of a small amount of emesis without blood or melena today. Bowel movements have been very loose/liquid and brown. She reports her postoperative pain at her surgical site is actually improving and is mildly tender, but overall seems similar or slightly less then during her procedure. She does not have any lower abdominal pain at rest, endorses mild pain slowly improving on palpation around her surgical site. Her follow-up with [facility] was scheduled for this coming . She denies fever, chills, sweats. No lightheadedness or dizziness. No chest pain or chest pressure. Abd wound opened on its own. Continues to drain Last packed last , should e packed again but due to her nausea came to ER rather than out [facility]/ Dr. Michelle. Hx of GERD, was well controlled on omeprazole prior to starting xyvox BMs runny Hasn't eaten for a few days du eto nausea No pain in the abdomen or at the incision Took BP meds this AM: - Atenolol 50mg - Telmisartan 80mg AM - Amlodipine she DID NOT take this AM because she was nausue - No other bp meds No longer on augmentin + cipro --> stopped and switched xyvox F/u with [facility] next with Dr. Vizcaino +nausea, 1x vomiting. No bloody bms/no melena. started Xyvox Sat --> Xyvox imemdiately made her very very nauseus Medical History: Reviewed Medications: Reviewed Surgical History: Reviewed Family history: Reviewed Allergies: Reviewed Social History: No tobacco use. Glass of wine with dinner, no history of withdrawal/seizure Code Status: Full code Principal Diagnosis 42 Discharge Exam Awake alert cooperative Constitutional WD/WN, vitals as above Eyes PERRL, conjunctivae normal, anicteric sclerae ENMT external ear and nose normal, oropharynx normal Neck trachea midline, no thyromegaly Respiratory normal respiratory effort, lungs clear to auscultation Cardiovascular RRR, no murmur, no edema Gastrointestinal (Abdomen) normal bowel sounds, soft, nontender, no hepatosplenomegaly Musculoskeletal no cyanosis or clubbing, extremities motor strength 5/5 Skin no rashes, warm and dry Neurologic PERRL, EOMI, accommodation nl, no face palsy, no dysarthria Psychiatric A+Ox3, euthymic affect Discharge Data Allergies Allergy/AdvReac Type Severity Reaction Status Date / Time adhesive tape Allergy Mild SKIN Verified 11/14/22 14:48 IRRITATION No Known Drug Allergies Allergy Unknown NKDA Verified 11/14/22 14:48 Consultations 11/05/22 18:32 ED Decision to Admit Stat 11/09/22 08:49 Consult General Surgery Routine Hospital Course (1) Nausea: Nausea/vomiting Potassium 3.4, repleted Magnesium 1.3, repleted ? Gastritis medicamentosa. Does have history of GERD on PPI. No epigastric tenderness to palpation. Surgical site in lower abdomen is healing, minimal surrounding tenderness which she reports is actually improved from prior Underwent CT 10/30 which showed expected postsurgical changes, gas and fluid collection typical for abscess which was drained, 1.7 cm pocket of fluid at the dermal surface which does not communicate with the larger collection, bladder wall thickening suggestive of cystitis See postop abscess treatment below for antibiotic recommendations Hypomagnesemic. Last EKG with QTc 413, will repeat and continue Zofran as long as QT is not prolonged Continue Protonix IV twice daily, Pepcid, Carafate for suspected gastritis Given liquid/loose diarrhea and multiple antibiotic courses we will also check C. difficile. If C. difficile is negative then may use Imodium for symptomatic care of diarrhea Last CT imaging did show evidence of cystitis, patient denies urinary symptoms. UA remains pending. Covered with antibiotics for abscess as noted below incl uding pseudomonal coverage Hypertension Labile/fluctuating. 115/86 when calm, increased to over 200 with nausea/vomiting. Missed her morning amlodipine which is given. Admitted to PCU for IV antihypertensives if needed Continue telmisartan, atenolol daily. Patient did take these morning of admission Colovaginal fistula s/p repair, complicated by postoperative abscess - WBC 6.52, procal normal, no fever/chills/sweats No evidence of increasing abdominal pain or worsening abdominal wound. Will defer reimaging at this time as she is clinically improving and is not septic/toxic appearing. If abdominal pain worsens then we will reimage with contrast Treated at [facility] for colovesicular fistula [place] [facility] [place], superficial postoperative abdominal wall. Drained and packed. Was discharged on Augmentin/Cipro, then switched to linezolid due to VRE Patient reports that she was switched to linezolid monotherapy and is not taking Cipro. This will not cover her Pseudomonas isolate, will admit on Cipro/linezolid at this time DVT PPx: Heparin Q12. Pt is with bilateral AKA CODE: Full Dispo: PCU Diet: Regular (2) Abscess: (3) S/P bilateral above knee amputation: (4) Hypertension: (5) GERD (gastroesophageal reflux disease): Total Time Total Time Spent Total Time Spent (In Minutes): 42 Discharge Plan Discharge Items Patient Disposition: Home - Self-Care Reason For Visit: abscess abdominal wall Discharge Diagnosis: abscess abdominal wall Condition on Discharge: Good Health Concerns: followup wound care and post op Dr Marily Vizcaino Goals: Restorative care Activity: Resume your previous activity Lifting: No more than 5 pounds Bathing: Keep incision dry Non-emergency contact: Primary Care Provider and Urologist Call non-emergency contact if: you have any medication questions, your pain is concerning for you and you have a fever Follow-up/Referrals: Malachi Michelle, DO [Primary Care Provider] - 11/12/22 11:30 am (Follow up scheduled 11/12/22 @ 11:30) Diet: Regular Addtl Attending Provider Instructions: Follow up with your colorectal surgeon dr. vizcaino next week as previously scheduled You may keep open incision covered with a dry dressing, gauze/tape, change daily and as needed Pending Studies at Discharge: No Stand-Alone Forms: My [facility], Smoking Cessation Medications and DC Order Prescriptions: Continued telmisartan 80 mg tablet 80 mg PO DAILY Qty: 30 2RF naproxen sodium [Aleve] 220 mg tablet 440 mg PO ONCE PRN (Reason: Pain) amlodipine 2.5 mg tablet 2.5 mg PO DAILY Qty: 30 2RF dorzolamide-timolol 22.3-6.8 mg/mL drops 1 drp OPB QAM omeprazole 20 mg capsule,delayed release(DR/EC) 20 mg PO DAILY atenolol 50 mg tablet 50 mg PO DAILY Discontinued tramadol 50 mg tablet 50 - 100 mg PO BID PRN (Reason: pain) Qty: 120 0RF ciprofloxacin HCl 500 mg tablet 500 mg PO BID Rx Instructions: BEGIN 11/02/22 X 7 DAYS linezolid 600 mg tablet 600 mg PO BID Rx Instructions: BEGIN 11/03/2122 X 7 DAYS No Action tramadol 50 mg tablet 50 - 100 mg PO BID PRN (Reason: pain) Qty: 120 0RF Discharge Orders: Discharge Order (Routine); Ordered 11/09/22 Ordered By: Perfecto Almonte/Other Patient Handouts: Abscess Drainage, What Is High Blood Pressure, When to Use Antibiotics Admission Data Admit Date/Time: 11/05/22 19:21 Attending Provider: Perfecto March Admit Provider: Yordy Hadley Primary Care Provider: Malachi Michelle Other Providers: Jorge Haas ; Zaheer West Other Interventions: Discharge Summary Assessment (RN) Last Done: 11/09/22 16:39 Coding Level of Care Code 67179 INP/OBS DISCH >30 MIN Diagnoses Nausea R11.0 Abscess L02.91 S/P bilateral above knee amputation Z89.611; Z89.612 Hypertension I10 Hypertension type: unspecified GERD (gastroesophageal reflux disease) K21.9 Time Spent (min) 42
== END 2022-11-09 17:04 | disposition home or self-care (01) | DRG 392 ==
LOC: ED 16:11 → 2S 19:21 → SUATTDRO 19:21 → 2S 21:26